=== PATIENT | female | born 1960 | race Caucasian/White ===

== ENCOUNTER → 2020-07-16 | Day surgery (SDC) | payer MEDICARE, OTHER ==
[2020-07-11 10:06] LABS: ANION GAP 18.2 mmol/L (8-16); BLOOD UREA NITROGEN 10 mg/dL (7-26); BUN/CREATININE RATIO 13 (6-25); CALCIUM 10.1 mg/dL (8.4-10.2); CARBON DIOXIDE 23 mmol/L (22-29); CHLORIDE 106 mmol/L (98-107); CREATININE, SERUM 0.79 mg/dL (0.57-1.11); EST GLOMERULAR FILTRATION RATE > 60 ML/MIN (60-); GLUCOSE 98 mg/dL (74-118); POTASSIUM 4.2 mmol/L (3.5-5.1); SODIUM 143 mmol/L (136-145)
[~2020-07-16] MED LIST: ALENDRONATE SOD35 MG PO; AMLODIPINE BESY10 MG PO; BUPIVACAINE 0.25% 30ML SDV INJ ONE; DEXAMETHASONE SOD PHOS INJ 4 MG/ML VIAL ONE; EFFEXOR XR 3737.5 MG PO; FENTANYL CITRATE/PF 100MCG/2 ML INJ ONE; FOLIC ACID PO; GABAPENTIN400 MG PO; GLYCOPYRROLATE INJ 0.2 MG/ML VIAL ONE; HYDROMORPHONE 1MG/1ML INJ ONE; IMITREX20 MG PO; IMURAN50 MG PO; KETOROLAC TROMETHAMINE 30 MG/ML VIAL ONE; LEVOTHYROXINE25 MCG PO; LIDOCAINE HCL 2% LOCAL INJ 5 ML SDV VIAL INJ ONE; LIPITOR10 MG PO; LISINOPRIL10 MG PO; LORATADINE-D 21 EACH PO; METFORMIN HCL500 M2 PO; MIDAZOLAM HCL 2 MG/2 ML VIAL ONE; MIRTAZAPINE15 MG PO; NEOSTIGMINE 1 MG/ML 10ML VIAL ONE; ONDANSETRON HCL INJ 2MG/ML 2ML 2 MG/ML VIAL ONE; ORENCIA125 MG/1 M SC; PROPOFOL IV EMULSION 10 MG/ML 20 ML VIAL ONE; ROCURONIUM BROMIDE 10 MG/ML 5ML VIAL IV ONE; SEVOFLURANE INHAL SOLN 250 ML PEN BTL ONE; TRAZODONE HCL50 MG PO; VANCOMYCIN 1GM/NS 250 ML 250 ML ONE
[2020-07-16 13:00] VITALS: BP 110/80
--- NOTE | 2020-07-16 16:18 | Operative Report ---
DATE OF PROCEDURE: 07/16/2020 SURGEON: Jacques Sigala MD PREOPERATIVE DIAGNOSIS: Chronic cholecystitis. POSTOPERATIVE DIAGNOSIS: Chronic cholecystitis. PREOPERATIVE INDICATION: Treat disease, prevent biliary related complications. PROCEDURE: Laparoscopic cholecystectomy (CPT 49486). ANESTHESIA: General. FLEET SERVICE CLERK: Fabien Bob, surgical 1st microbiology lab assistant (needed due to complexity of case). FLUIDS: 500 mL crystalloid. ESTIMATED BLOOD LOSS: 70 mL. DRAINS: None. COMPLICATIONS: None. SPECIMENS: Gallbladder. GRAFTS: None. FINDINGS: Extreme gallbladder wall friability and hypervascularity with signs of acute and chronic cholecystitis. PROCEDURE IN DETAIL: The patient was brought to the operating room and was intubated under general endotracheal anesthesia. She was positioned supine with both arms abducted and all pressure points appropriately padded. She was sterilely prepped and draped in the usual fashion. A preprocedure pause was performed identifying the patient, use of perioperative antibiotics, intended procedure, and staff surgeon. Access was gained via a 5 mm left subcostal incision using a Veress needle. The abdomen is insufflated. Three additional trocars placed in standard positions. There were some adhesions to the anterior abdominal wall which were carefully lysed. The gallbladder was composed of adhesions from the omentum as well as duodenum which I carefully lysed in order to be able to retract this gallbladder. The gallbladder was grasped at the fundus and retracted cephalad and to the right of the liver. I then dissected out the cholecystic hepatic triangle and obtained a critical view of dissection. The cystic duct was clipped twice on the stay side, once on the specimen side and divided. The small branches of the cystic artery were electrocoagulated with the L-hook electrocautery. The gallbladder was then carefully excised off the gallbladder fossa. There was abundant amount of fibrotic reaction at the gallbladder fossa with hypervascularity, which made dissection a bit more bloody than normal. We were then able to excise the gallbladder off the fossa and removed through the periumbilical port site with an EndoCatch bag. Hemostasis on the gallbladder fossa was achieved with a combination of electrocautery and a single sheet of Surgicel. Once that was completed, we then closed the large port site with 0 Vicryl suture using a Mckinley Castro technique. We then desufflated the abdomen, removed the trocars. Incision sites were closed with 4-0 Monocryl suture in a subcuticular fashion. Dermabond dressings were applied. A 0.25% bupivacaine was used both at the preperitoneal incision site. The patient tolerated the procedure well. Type of wound was type 2, clean, contaminated. All surgical sponge and instrument counts were correct. MD CLARITZA Tejeda/RL /[id number]
== END | disposition home or self-care (01) ==
LOC: OR 08:27
PROVIDERS: ATTEND Surgery
DX: K81.2 Acute cholecystitis with chronic cholecystitis (principal); I10 Essential (primary) hypertension; E11.9 Type 2 diabetes mellitus without complications; E03.9 Hypothyroidism, unspecified; G89.29 Other chronic pain; M06.9 Rheumatoid arthritis, unspecified; F41.9 Anxiety disorder, unspecified; F32.9 Major depressive disorder, single episode, unspecified; Z88.1 Allergy status to other antibiotic agents; Z88.0 Allergy status to penicillin; Z01.810 Encounter for preprocedural cardiovascular examination; Z01.812 Encounter for preprocedural laboratory examination; Z11.59 Encounter for screening for other viral diseases; Z79.84 Long term (current) use of oral hypoglycemic drugs; Z68.30 Body mass index [BMI] 30.0-30.9, adult; Z86.73 Personal history of transient ischemic attack (TIA), and cerebral infarction without residual deficits
CPT/HCPCS: 36415 ×2; 47562; 80048; 82948; 88304; 93005; J1100; J1170; J1885; J2001; J2250; J2405; J2704; J2710; J3010; J3370; U0002

== ENCOUNTER 2020-07-22 01:07 | Inpatient (IN) | payer MEDICARE, OTHER ==
[~2020-07-22] VITALS: Ht 154.9 cm; Wt 71.7 kg
[~2020-07-22 01:07] MED LIST changes: -BUPIVACAINE 0.25% 30ML SDV INJ ONE; -DEXAMETHASONE SOD PHOS INJ 4 MG/ML VIAL ONE; -FENTANYL CITRATE/PF 100MCG/2 ML INJ ONE; -GLYCOPYRROLATE INJ 0.2 MG/ML VIAL ONE; -HYDROMORPHONE 1MG/1ML INJ ONE; -KETOROLAC TROMETHAMINE 30 MG/ML VIAL ONE; -LIDOCAINE HCL 2% LOCAL INJ 5 ML SDV VIAL INJ ONE; -MIDAZOLAM HCL 2 MG/2 ML VIAL ONE; -NEOSTIGMINE 1 MG/ML 10ML VIAL ONE; -ONDANSETRON HCL INJ 2MG/ML 2ML 2 MG/ML VIAL ONE; -PROPOFOL IV EMULSION 10 MG/ML 20 ML VIAL ONE; -ROCURONIUM BROMIDE 10 MG/ML 5ML VIAL IV ONE; -SEVOFLURANE INHAL SOLN 250 ML PEN BTL ONE; -VANCOMYCIN 1GM/NS 250 ML 250 ML ONE
[2020-07-22] MEDS ORDERED: CIPROFLOXACIN 400 MG/D5W 200ML 200 ML IV STA (01:15)
[2020-07-22] MEDS ORDERED: METRONIDAZOLE 500MG/NS 100ML 100 ML IV STA (01:15)
[2020-07-22] MEDS ORDERED: SODIUM CHLORIDE 0.9% 1000ML 1,000 ML IV STA ×2 (01:21→02:34)
[2020-07-22] MEDS ORDERED: SODIUM CHLORIDE 0.9% 1000ML 1,000 ML ONE ×2 (01:23→08:42)
--- OUTSIDE RECORDS SUMMARY | 2020-07-22 01:56 | XMS REPORT | Continuity of Care Document ---
Author Author [facility] Organization [facility] Address 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 Allergies, Adverse Reactions, Alerts Allergy Name Allergy Type Status Severity Reaction(s) Onset Date Inacti ve Date Treating Clinician Comments Source Penicillins DA Active [place] 2019-11-21 00:00:00 [facility] ampicillin DA Active [place] 2019-11-21 00:00:00 [facility] tetracycline DA Active [place] 2019-11-21 00:00:00 [facility] azithromycin DA Active [place] 2019-11-21 00:00:00 [facility] Penicillins DA Active [place] 2019-09-26 00:00:00 [facility] ampicillin DA Active SV 2019-09-26 00:00:00 [facility] tetracycline DA Active [place] 2019-09-26 00:00:00 [facility] azithromycin DA Active MO 2019-07-01 00:00:00 [facility] Penicillins DA Active [place] 2019-06-30 00:00:00 [facility] ampicillin DA Active SV 2019-06-30 00:00:00 [facility] tetracycline DA Active [place] 2019-06-30 00:00:00 [facility] PCN DA Active [place] 2019-06-30 00:00:00 [facility] Medications This patient has no known medications. Procedures This patient has no known procedures. Results Test Description Test Time Test Comments Results Result Comments Source DRUGS OF ABUSE SCREEN UR 2019-12-03 11:11:00 Test Item URN COCAINE (test code = COCAURN) NEGATIVE NEGATIVE Cocaine cut-off concentration: 300 ng/mL URN CANNABINOIDS (test code = CANNABURN) NEGATIVE NEGATIVE Cannabinoids cut- off concentration: 50 ng/mL URN AMPHETAMINE (test code = AMPHETURN) NEGATIVE NEGATIVE Amphetamine cut-off concentration: 1000 ng/mL URN BARBITURATE (test code = BARBITURN) NEGATIVE NEGATIVE Barbiturate cut-off concentration: 200 ng/mL URN BENZODIAZEPINE (test code = BENZOURN) NEGATIVE NEGATIVE Benzodiazepine cut-off concentration: 200 ng/mL URN OPIATES (test code = OPIATURN) POSITIVE NEGATIVE A UNCONFIRMED INITIAL SCREENING ONLY; SUGGEST ADDITIONALCONFIRMATORY TESTING.Opiates cut-off concentration: 200 ng/mL URN PHENCYCLIDINE (PCP) (test code = PHENCURN) NEGATIVE NEGATIV E Phencyclidine(PCP) cut-off concentration: 25 ng/ml URN METHADONE (test code = METHAURN) NEGATIVE NEGATIVE Methadone cut-off concentration: 300 ng/mL Specimen comments: Clean CatchBASIC METABOLIC [id number] 11:07:00* Test Item Value Reference Range Interpretation Comments SODIUM (test code = NA) 142 mmol/l 134.0-147.0 N POTASSIUM (test code = K) 3.4 mmol/L 3.6-5.2 L CHLORIDE (test code = CL) 106 mmol/l 98.0-107.0 N CARBON DIOXIDE (test code = CO2) 25.6 mmol/l 21.0-33.0 N ANION GAP (test code = GAP) 13.8 0-20 N GLUCOSE (test code = GLU) 114 mg/dl 70.0-110.0 H BLOOD UREA NITROGEN (test code = BUN) 10 mg/dl 7.0-18.0 N CREATININE (test code = CREAT) 0.70 mg/dL 0.60-1.30 N GFR NON BLACK (test code = GFRNONBLACK) 90 mL/min 80-90 N GFR BLACK (test code = GFRBLACK) 109 mL/min 97-109 N CALCIUM (test code = CA) 9.1 mg/dl 8.0-10.5 N HEPATIC FUNCTION PANEL [id number] 11:07:00* Test Item Value Reference Range Interpretation Comments TOTAL PROTEIN (test code = PROT) 7.2 gm/dL 6.4-8.2 N ALBUMIN (test code = ALB) 3.2 gm/dl 3.2-4.7 N BILIRUBIN TOTAL (test code = BILT) 0.3 mg/dl 0.0-1.0 N BILIRUBIN DIRECT (test code = BILD) 0.1 mg/dl 0.0-0.3 N SGOT/AST (test code = AST) 11 Units/L 15.0-37.0 L SGPT/ALT (test code = ALT) 13 Units/L 12.0-78.0 N ALKALINE PHOSPHATASE TOTAL (test code = ALKP) 88 Units/L 50.0-136 .0 N B-TYPE NATRIURETIC [id number] 11:07:00* Test Item Value Reference Range Interpretation Comments B-TYPE NATRIURETIC PEPTIDE (test code = BNP) 43.8 PG/ML 5-100 N [id number] 11:07:00* Test Item Value Reference Range Interpretation Comments TROPONIN-I (test code = TROPI) <0.02 NG/ML 0.00-0.06 N REFERENCE RANGE TROPONIN I HEALTHY INDIVIDUALS: <0.06 ng/mL R/O ISCHEMIA: 0.07 - 0.60 ng/mL CUT-OFF RANGE FOR AMI: 0.60 - 1.5 ng/mL URINALYSIS [id number] 11:05:00* Test Item Value Reference Range Interpretation Comments UA COLOR (test code = COLU) YELLOW UA APPEARANCE (test code = APPU) SLHZY UA GLUCOSE DIPSTICK (test code = DGLUU) NORMAL mg/dl NORMAL UA BILIRUBIN DIPSTICK (test code = BILU) NEGATIVE mg/dL NEGATIVE UA KETONE DIPSTICK (test code = KETU) NEGATIVE mg/dl NEGATIVE UA SPECIFIC GRAVITY (test code = SGU) 1.020 1.000-1.030 UA BLOOD DIPSTICK (test code = SOLE) 50 Fredrick/micL Fredrick/micL NEGATIVE A UA PH DIPSTICK (test code = RAUL) 5.0 5.0-9.0 UA PROTEIN DIPSTICK (test code = PROU) 15 mg/dl mg/dl NEGATIVE A UA UROBILINIOGEN DIPSTICK (test code = URO) 4.0 mg/dl mg/dl NORMAL A UA NITRITE DIPSTICK (test code = TIMOTHY) NEGATIVE NEGATIVE UA LEUKOCYTE ESTERASE DIPSTICK (test code = LEUU) NEGATIVE Jhoana/micL NEGATIVE UA WBC (test code = WBCU) 0-3 WBC/HPF NONE UA RBC (test code = RBCU) 5-10 RBC/HPF 0-3 A UA EPITHELIAL CELLS (test code = EPIU) 0-3 EPI/HPF 0-3 UA BACTERIA (test code = BACU) FEW NONE Specimen comments: Clean CatchURINALYSIS [id number] 11:02:00* Test Item Value Reference Range Interpretation Comments UA COLOR (test code = COLU) UA APPEARANCE (test code = APPU) UA GLUCOSE DIPSTICK (test code = DGLUU) NORMAL mg/dl NORMAL UA BILIRUBIN DIPSTICK (test code = BILU) NEGATIVE mg/dL NEGATIVE UA KETONE DIPSTICK (test code = KETU) NEGATIVE mg/dl NEGATIVE UA SPECIFIC GRAVITY (test code = SGU) 1.020 1.000-1.030 UA BLOOD DIPSTICK (test code = SOLE) 50 Fredrick/micL Fredrick/micL NEGATIVE A UA PH DIPSTICK (test code = RAUL) 5.0 5.0-9.0 UA PROTEIN DIPSTICK (test code = PROU) 15 mg/dl mg/dl NEGATIVE A UA UROBILINIOGEN DIPSTICK (test code = URO) 4.0 mg/dl mg/dl NORMAL A UA NITRITE DIPSTICK (test code = TIMOTHY) NEGATIVE NEGATIVE UA LEUKOCYTE ESTERASE DIPSTICK (test code = LEUU) NEGATIVE Jhoana/micL NEGATIVE UA WBC (test code = WBCU) WBC/HPF NONE UA RBC (test code = RBCU) RBC/HPF 0-3 UA EPITHELIAL CELLS (test code = EPIU) EPI/HPF 0-3 UA BACTERIA (test code = BACU) NONE Specimen comments: Clean CatchBASIC METABOLIC [id number] 10:53:00* Test Item Value Reference Range Interpretation Comments SODIUM (test code = NA) 142 mmol/l 134.0-147.0 N POTASSIUM (test code = K) 3.4 mmol/L 3.6-5.2 L CHLORIDE (test code = CL) 106 mmol/l 98.0-107.0 N CARBON DIOXIDE (test code = CO2) 25.6 mmol/l 21.0-33.0 N ANION GAP (test code = GAP) 13.8 0-20 N GLUCOSE (test code = GLU) 114 mg/dl 70.0-110.0 H BLOOD UREA NITROGEN (test code = BUN) 10 mg/dl 7.0-18.0 N CREATININE (test code = CREAT) 0.70 mg/dL 0.60-1.30 N GFR NON BLACK (test code = GFRNONBLACK) 90 mL/min 80-90 N GFR BLACK (test code = GFRBLACK) 109 mL/min 97-109 N CALCIUM (test code = CA) 9.1 mg/dl 8.0-10.5 N HEPATIC FUNCTION PANEL [id number] 10:53:00* Test Item Value Reference Range Interpretation Comments TOTAL PROTEIN (test code = PROT) 7.2 gm/dL 6.4-8.2 N ALBUMIN (test code = ALB) 3.2 gm/dl 3.2-4.7 N BILIRUBIN TOTAL (test code = BILT) 0.3 mg/dl 0.0-1.0 N BILIRUBIN DIRECT (test code = BILD) 0.1 mg/dl 0.0-0.3 N SGOT/AST (test code = AST) 11 Units/L 15.0-37.0 L SGPT/ALT (test code = ALT) 13 Units/L 12.0-78.0 N ALKALINE PHOSPHATASE TOTAL (test code = ALKP) 88 Units/L 50.0-136 .0 N B-TYPE NATRIURETIC [id number] 10:53:00* Test Item Value Reference Range Interpretation Comments B-TYPE NATRIURETIC PEPTIDE (test code = BNP) PG/ML 5-100 [id number] 10:53:00* Test Item Value Reference Range Interpretation Comments TROPONIN-I (test code = TROPI) <0.02 NG/ML 0.00-0.06 N REFERENCE RANGE TROPONIN I HEALTHY INDIVIDUALS: <0.06 ng/mL R/O ISCHEMIA: 0.07 - 0.60 ng/mL CUT-OFF RANGE FOR AMI: 0.60 - 1.5 ng/mL BASIC METABOLIC [id number] 10:41:00* Test Item Value Reference Range Interpretation Comments SODIUM (test code = NA) 142 mmol/l 134.0-147.0 N POTASSIUM (test code = K) 3.4 mmol/L 3.6-5.2 L CHLORIDE (test code = CL) 106 mmol/l 98.0-107.0 N CARBON DIOXIDE (test code = CO2) 25.6 mmol/l 21.0-33.0 N ANION GAP (test code = GAP) 13.8 0-20 N GLUCOSE (test code = GLU) mg/dl 70.0-110.0 BLOOD UREA NITROGEN (test code = BUN) mg/dl 7.0-18.0 CREATININE (test code = CREAT) mg/dL 0.60-1.30 GFR NON BLACK (test code = GFRNONBLACK) mL/min 80-90 GFR BLACK (test code = GFRBLACK) mL/min 97-109 CALCIUM (test code = CA) mg/dl 8.0-10.5 HEPATIC FUNCTION PANEL [id number] 10:41:00* Test Item Value Reference Range Interpretation Comments TOTAL PROTEIN (test code = PROT) gm/dL 6.4-8.2 ALBUMIN (test code = ALB) gm/dl 3.2-4.7 BILIRUBIN TOTAL (test code = BILT) mg/dl 0.0-1.0 BILIRUBIN DIRECT (test code = BILD) mg/dl 0.0-0.3 SGOT/AST (test code = AST) Units/L 15.0-37.0 SGPT/ALT (test code = ALT) Units/L 12.0-78.0 ALKALINE PHOSPHATASE TOTAL (test code = ALKP) Units/L 50.0-136 .0 B-TYPE NATRIURETIC [id number] 10:41:00* Test Item Value Reference Range Interpretation Comments B-TYPE NATRIURETIC PEPTIDE (test code = BNP) PG/ML 5-100 [id number] 10:41:00* Test Item Value Reference Range Interpretation Comments TROPONIN-I (test code = TROPI) NG/ML 0.00-0.06 PROTHROMBIN [id number] 10:33:00* Test Item Value Reference Range Interpretation Comments PROTHROMBIN TIME PATIENT (test code = PTP) 11.9 SECONDS 9.9-12.8 N INTERNATIONAL NORMAL RATIO (test code = INR) 1.0 0.89-1.14 N THE INR IS TO BE USED ONLY FOR MONITORING ORAL ANTICOAGULANTTHERAPY. THE FOLLOWING ARE SUGGESTED RANGES FROM THEAMERICAN COLLEGE OF CHEST PHYSICIANS:INDICATION INR VALUEPROPHYLAXIS OF VENOUS THROMBOSIS (ORTHOPEDIC SURGERY) 2.0 - 3.0PROPHYLAXIS OF VENOUS THROMBOSIS (OTHER THAN HIGH-RISK SURGERY) 2.0 - 3.0TREATMENT OF DEEP VEIN THROMBOSIS OR PULMONARY EMBOLISM 2.0 - 3.0PREVENTION OF SYSTEMIC EMBOLISM TISSUE HEART VALVES 2.0 - 3.0 ACUTE MYOCARDIAL INFARCTION (TO PREVENT SYSTEMIC EMBOLISM) 2.0 - 3.0 ACUTE MYOCARDIAL INFARCTION (TO PREVENT RECURRENT INFARCT) 2.5 - 3.0 VALVULAR HEART DISEASE 2.0 - 3.0 ATRIAL FIBRILATION 2.0 - 3.0BILEAFLET MECHANICAL VALVE IN AORTIC POSITION 2.0 - 3.0MECHANICAL PROSTHETIC VALVES (HIGH RISK) 2.5 - 3.5PRESENCE OF LUPUS ANTICOAGULANT OR ANTIPHOSPHOLIPID ANTIBODIES 2.5 - 3.5 Is patient on anticoagulants? NTHROMBOPLASTIN TIME [id number] 10:33:00* Test Item Value Reference Range Interpretation Comments THROMBOPLASTIN TIME PARTIAL (test code = PTT) 27.10 SECONDS 25.86-3 6.07 N [facility] Therapeutic Range - APTT of 55.8-85.4 secondscorrelates with plasma heparin concentration of 0.2-0.4 u/mL New range effective - 01/11/2017 Is patient on anticoagulants? NCBC W/AUTO [id number] 10:25:00* Test Item Value Reference Range Interpretation Comments WHITE BLOOD CELL (test code = WBC) 6.0 K/mm3 4.5-11.0 N RED BLOOD CELL (test code = RBC) 3.61 M/mm3 3.80-5.20 L HEMOGLOBIN (test code = HGB) 11.3 gm/dL 12.0-16.0 L HEMATOCRIT (test code = HCT) 33.8 % 36.0-48.0 L MEAN CELL VOLUME (test code = MCV) 93.6 UM3 82.0-99.0 N MEAN CELL HGB (test code = MCH) 31.3 UUG 25.5-32.5 N MEAN CELL HGB CONCETRATION (test code = MCHC) 33.4 gm/dL 29.0-35. 5 N RED CELL DISTRIBUTION WIDTH (test code = RDW) 17.9 % 11.5-15. 0 H RED CELL DISTRIBUTION WIDTH SD (test code = RDW-SD) 62.1 fL 34 .8-50.2 H PLATELET COUNT (test code = PLT) 298 K/mm3 150-400 N MEAN PLATELET VOLUME (test code = MPV) 9.8 fl 7.4-10.4 N NEUTROPHIL % (test code = NT%) 70.0 % 49.0-76.0 N IMMATURE GRANULOCYTE % (test code = IG%) 0.2 % 0.0-0.4 N LYMPHOCYTE % (test code = LY%) 22.6 % 23.0-38.0 L MONOCYTE % (test code = MO%) 6.0 % 1.0-10.0 N EOSINOPHIL % (test code = EO%) 0.7 % 1.0-5.0 L BASOPHIL % (test code = BA%) 0.5 % 0.0-1.0 N NEUTROPHIL # (test code = NT#) 4.2 K/mm3 2.4-6.3 N IMMATURE GRANULOCYTE # (test code = IG#) 0.01 x10 3/uL 0.00-0.07 N LYMPHOCYTE # (test code = LY#) 1.4 K/mm3 1.2-4.0 N MONOCYTE # (test code = MO#) 0.4 K/mm3 0.0-0.6 N EOSINOPHIL # (test code = EO#) 0.0 K/MM3 0.0-0.7 N BASOPHIL # (test code = BA#) 0.0 K/mm3 0.0-0.2 N - XR CHEST 1 [id number] 09:52:00 FAX: Macie Cota [phone] Bernard: St: PRE FAX: Maia Gant MD [phone] Name: PADMINI MACKEY [facility] : 1960 Age/S: 59/F [address] Unit #: [id number] Loc: .[place], [place]: [place] [id number] Acct: [id number] Dis Date: Status: PRE ER PHONE #: [phone] Exam Date: 12/03/2019 0951 FAX #: [phone] Reason: SOB EXAMS: CPT CODE: [id number] XR CHEST 1 V 52617 LOCATION: T18 EXAM: CHEST 1 VIEW INDICATION: SOB COMPARISON: Chest x-ray November 21, 2019 TECHNIQUE: AP chest radiograph. FINDINGS: Lungs are clear bilaterally without effusion. Heart is normal in size. Bones and peripheral soft tissues are unchanged. IMPRESSION: Lungs are clear. No acute abnormality. at 9714 Reported and signed by: Mahamed Tsang M.D. CC: Macie Landaverde MD; Maia Gant MD Technologist: JULIA FORTUNE [facility] Date/Time/By: 12/03/2019 (0952) : By: [email or web address] PAGE 1 Signed Report FAX: Macie Cota [phone] Bernard: St: PRE FAX: Maia Gant MD Name: NARENDRAPADMINI Conchis [facility] : 1960 Age/S: 59/F [address] Unit #: [id number] Loc: [place], [place]: [place] [id number] Acct: [id number] Dis Date: Status: PRE ER PHONE #: [phone] Exam Date: 12/03/2019 0951 FAX #: [phone] Reason: SOB EXAMS: CPT CODE: [id number] XR CHEST 1 V 47645 <Continued> Orig Print D/T: S: 12/03/2019 (4797) PAGE 2 Signed Report PROCALCITONIN (PCT)2019-11-21 21:09:00* Test Item Value Reference Range Interpretation Comments PROCALCITONIN (PCT) (test code = PROCAL) 0.05 ng/mL 0.00-0.05 N PROCALCITONIN (PCT) NORMAL RANGE (ADULT): <0.05 NG/ML. * a concentration <0.5 ng/mL represents a low risk of severe sepsis and/or septic shock.* a concentration >2 ng/mL represents a high risk of severe sepsis and/or septic shock.Nevertheless, concentrations <0.5 ng/mL do not exclude aninfection, on account of localized infections (withoutsystemic signs) which can be associated with such lowconcentrations, or a systemic infection in its initialstages (< 6 hours). Furthermore, increased procalcitonincan occur without infection. PCT concentrations between 0.5and 2.0 ng/mL should be interpreted taking into account thepatient's history. It is recommended to retest PCT within6-24 hours if any concentrations <2 ng/mL are obtained. C REACTIVE [id number] 20:53:00* Test Item Value Reference Range Interpretation Comments C REACTIVE PROTEIN (test code = CRP) 15.3 MG/L 0.0-2.9 H - CT ABD PELVIS W/[id number] 18:23:00 Name: PADMINI MACKEY Conchis [facility] : 1960 Age/S: 59 / F [address] [place] [address] Unit #: [id number] Loc: [place] [address] Phys: Irma Keys NP Acct: [id number] Dis Date: Status: REG ER PHONE #: [phone] Exam Date: 11/21/2019 8206 FAX #: [phone] Reason: R upper abd pain EXAMS: CPT CODE: [id number] CT ABD PELVIS W/CONT 06990 Clinical Indication: R upper abd pain Comparison: CT abdomen pelvis 06/30/2019 TECHNIQUE: Helical imaging was performed after injection of IV contrast, from the lung base through the symphysis with multiplanar reformations obtained. IV CONTRAST: 100 mL of Isovue-300 GI CONTRAST: Oral contrast was administered. DLP: 335 mGy-cm FINDINGS: CT ABDOMEN AND PELVIS WITH CONTRAST: LUNG BASE: Infiltrates are seen in the bilateral lower lungs, moderately worsened since the last exam. LIVER: The liver is enlarged measuring 20.8 cm in cranial to caudal dimension. The liver parenchyma is normal in appearance without masses or intrahepatic biliary ductal dilatation. The portal vein is normal in caliber. BILIARY TREE: The common bile duct is normal in caliber without evidence of filling defects. GALLBLADDER: The gallbladder is unremarkable, there is no evidence of cholelithiasis or cholecystitis. PANCREAS: The pancreas is unremarkable. The pancreatic duct is normal in caliber. SPLEEN: The spleen is normal in size and there are no parenchymal abnormalities. ADRENALS: The right adrenal gland is unremarkable. The left adrenal gland is not well visualized due to the large cyst. KIDNEYS: The kidneys demonstrates normal contrast enhancement. A 8.7 x 6.2 cm cyst with calcification is seen superior to the right kidney. There is no evidence of renal or ureteral calculi. There is no evidence of hydronephrosis. BOWEL: The visualized portion of the esophagus is unremarkable. The stomach is unremarkable. The small bowel is normal in caliber and there is no evidence of masses or obstruction. 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 APPENDIX: The appendix is nonvisualized. PELVIS: There are no pelvic masses. The urinary bladder is unremarkable. The uterus is not visualized. PERITONEUM: There is no evidence for free intraperitoneal fluid or air. SOFT TISSUES: The soft tissues are unremarkable. There is no evidence of masses or hernias. LYMPH NODES: There is no evidence of mesenteric, retroperitoneal, or inguinal lymphadenopathy. VASCULATURE: The abdominal aorta is normal in caliber. The branches of the abdominal aorta are widely patent. MUSCULOSKELETAL: The visualized bony skeleton is unremarkable. IMPRESSION: 1. Multifocal pneumonia, moderately worsened since the last exam. 2. A 8.7 x 6.2 cm cyst with calcification superior to the right kidney and adjacent to the left adrenal gland, stable. 3. Hepatomegaly. 4. Hysterectomy. SL: LANVU-H at 1823 Reported and signed by: Jaret Simmons M.D. CC: Macie Landaverde MD; Irma Keys NP Technologist:Pratibha Stovall, RT(R) CTDI: DLP: Trnscb Date/Time: 11/21/2019 (1822) t.SDR.LNV Orig Print D/T: S: 11/21/2019 (1825) PAGE 2 Signed Report - US ABDOMEN [id number] 16:57:00 Name: PADMINI MACKEY [facility] : 1960 Age/S: 59 / F [address] [place] [address] Blvd Unit #: [id number] Loc: [place] [address] Phys: Irma Keys NP Acct: [id number] Dis Date: Status: REG ER PHONE #: [phone] Exam Date: 11/21/2019 1649 FAX #: [phone] Reason: Abdominal Pain EXAMS: CPT CODE: [id number] ABDOMEN LTD 06706 PROCEDURE: RIGHT UPPER QUADRANT ULTRASOUND INDICATION: Abdominal pain, nausea and vomiting COMPARISON: Abdomen pelvis CT without contrast 06/30/2019 TECHNIQUE: Sonographic evaluation of the right upper quadrant was performed with supplemental color and pulsed Doppler. FINDINGS: LIVER: The liver is normal in contour and morphology with normal parenchymal echogenicity. GALLBLADDER: Minimal gallbladder sludge. No gallbladder wall thickening, pericholecystic fluid or shadowing stones.. BILE DUCTS: No biliary dilatation. The common duct measures 8 mm. PANCREAS: The visualized pancreas appears normal. RIGHT KIDNEY: The right kidney measures 10 cm in length. Normal renal contour and morphology with normal echogenicity. There is no hydronephrosis. Additional comments: Complex cystic lesion in the right upper quadrant of the abdomen that measures 7.1 x 5.5 x 6.4 cm. This is stable in size from the prior CT that also showed some mural calcification. Favor that this lesion arises from the upper pole of the right kidney, adrenal origin not excluded IMPRESSION: 1. Gallbladder sludge. 2. Common bile duct upper limits of normal in size. No evidence of choledocholithiasis. 3. Stable size of a complex cystic lesion right upper quadrant, favor renal origin SL: CL [id number] Electronically Signed by Vipin Aguilera on at 1657 Reported and signed by: Pili Kendrick PAGE 1 Signed Report (CONTINUE D) Name: PADMINI MACKEY [facility] : 1960 Age/S: 59 / F [address] [place] [address] Unit #: [id number] Loc: [place] [address] Phys: Jeffy Keys WEB DESIGNER DEVELOPER Acct: [id number] Dis Date: Status: REG ER PHONE #: [phone] Exam Date: 11/21/2019 1649 FAX #: [phone] Reason: Abdominal Pain EXAMS: CPT CODE: [id number] ABDOMEN LTD 92165 <Continued> CC: Irma Keys NP Technologist: Deirdre Hathaway RDMS (Jeffy) Trnscb Date/Time: 11/21/2019 (165) t.MISTIG Orig Print D/T: S: 11/21/2019 (1700) Probe: PAGE 2 Signed Report HEPATIC FUNCTION [id number] 14:31:00* Test Item Value Reference Range Interpretation Comments TOTAL PROTEIN (test code = PROT) 8.1 g/dL 6.4-8.2 N ALBUMIN (test code = ALB) 3.50 g/dL 3.4-5.0 N BILIRUBIN TOTAL (test code = BILT) 0.5 MG/DL <1.5 N BILIRUBIN DIRECT (test code = BILD) 0.10 MG/DL 0.0-0.30 N BILIRUBIN INDIRECT (test code = BILIND) 0.40 MG/DL SGOT/AST (test code = AST) 13 IUnit/L 15-37 L SGPT/ALT (test code = ALT) 14 IUnit/L 15-65 L ALKALINE PHOSPHATASE TOTAL (test code = ALKP) 105 IUnit/L 20-125 N [id number] 14:31:00* Test Item Value Reference Range Interpretation Comments LIPASE (test code = LIP) 115 IUnit/L 73-393 N - XR CHEST 2 [id number] 14:21:00 FAX: Irma Keys NP [phone] Bernard: St: PRE Name: PADMINI HUERTA [facility] : [birth year] Age/S: 59/F [address] [place] [address] Unit #: [id number] Loc: [place] [address] Phys: Irma Keys NP Acct: [id number] Dis Date: Status: PRE ER PHONE #: [phone] Exam Date: 11/21/2019 1417 FAX #: [phone] Reason: RUQ abd pain EXAMS: CPT CODE: [id number] XR CHEST 2 V 44266 Two-view chest: HIST ORY: Right upper quadrant abdominal pain. FINDINGS: Mild interstit ial prominence in each lung base is stable from 08/17/2019 likely mild fibr otic change. No new pulmonary infiltrate or pleural fluid collection is f ound. The heart and mediastinal contours are stable. Note is made of lakshmi gino kyphosis. IMPRESSION: Stable exam without definite acute fin ding SL: [id number] Electro nically Signed by Vipin Aguilera on 11/21/2019 at 1421 Reported and signed by: Chase Aguilera M.D. CC: Irma martinez NP Technologist: Marivel Mata(Marivel) Trnscrd Date/Time/By: 11/21/2019 (2511) : Aniket y: MeganG Orig Print D/T: S: 11/21/2019 (7897) PAGE 1 Signed Report CBC W/AUTO [id number] 14:10:00* Test Item Value Reference Range Interpretation Comments WHITE BLOOD CELL (test code = WBC) 10.01 x10 3/uL 4.5-11.0 N RED BLOOD CELL (test code = RBC) 3.66 x10 6/uL 3.54-5.02 N HEMOGLOBIN (test code = HGB) 11.6 g/dL 11.0-15.0 N HEMATOCRIT (test code = HCT) 34.6 % 33.0-45.0 N MEAN CELL VOLUME (test code = MCV) 94.5 fL 81.0-99.0 N MEAN CELL HGB (test code = MCH) 31.7 pg 27.0-33.0 N MEAN CELL HGB CONCETRATION (test code = MCHC) 33.5 g/dL 33.0-37. 0 N RED CELL DISTRIBUTION WIDTH CV (test code = RDW) 17.4 % 11.5- 14.5 H RED CELL DISTRIBUTION WIDTH SD (test code = RDW-SD) 60.5 fL 37 .0-54.0 H PLATELET COUNT (test code = PLT) 338 x10 3/uL 150-400 N IMMATURE PLATELET FRACTION (test code = IPF) 1.6 % 0.9-11.2 N MEAN PLATELET VOLUME (test code = MPV) 9.9 fL 7.0-9.0 H NEUTROPHIL % (test code = NT%) 64.8 % 56.0-77.0 N IMMATURE GRANULOCYTE % (test code = IG%) 0.4 % 0.0-2.0 N LYMPHOCYTE % (test code = LY%) 24.7 % 14.0-32.0 N MONOCYTE % (test code = MO%) 8.3 % 4.8-9.0 N EOSINOPHIL % (test code = EO%) 1.6 % 0.3-3.7 N BASOPHIL % (test code = BA%) 0.2 % 0.0-2.0 N NUCLEATED RBC % (test code = NRBC%) 0.0 % 0-0 N NEUTROPHIL # (test code = NT#) 6.49 x10 3/uL 2.0-7.6 N IMMATURE GRANULOCYTE # (test code = IG#) 0.04 x10 3/uL 0.00-0.03 H LYMPHOCYTE # (test code = LY#) 2.47 x10 3/uL 1.0-3.8 N MONOCYTE # (test code = MO#) 0.83 x10 3/uL 0.1-0.8 H EOSINOPHIL # (test code = EO#) 0.16 x10 3/uL 0.0-0.2 N BASOPHIL # (test code = BA#) 0.02 x10 3/uL 0.0-0.2 N NUCLEATED RBC # (test code = NRBC#) 0.00 x10 3/uL 0.0-0.1 N MANUAL DIFF REQUIRED (test code = MDIFF) NO UA RFLX MICR CULT IF [id number] 14:09:00* Test Item Value Reference Range Interpretation Comments UA COLOR (test code = COLU) YELLOW YEL/STRAW UA APPEARANCE (test code = APPU) CLEAR CLEAR UA GLUCOSE DIPSTICK (test code = DGLUU) NEGATIVE NEGATIVE UA BILIRUBIN DIPSTICK (test code = BILU) NEGATIVE NEGATIVE UA KETONE DIPSTICK (test code = KETU) NEGATIVE NEGATIVE UA SPECIFIC GRAVITY (test code = SGU) 1.009 1.005-1.030 N UA BLOOD DIPSTICK (test code = SOLE) 1+ NEGATIVE A UA PH DIPSTICK (test code = RAUL) 6.0 5.0-7.0 N UA PROTEIN DIPSTICK (test code = PROU) NEGATIVE NEGATIVE UA UROBILINIOGEN DIPSTICK (test code = URO) 0.2 mg/dL 0.2-1.0 UA NITRITE DIPSTICK (test code = TIMOTHY) NEGATIVE NEGATIVE UA LEUKOCYTE ESTERASE DIPSTICK (test code = LEUU) NEGATIVE NEGA TIVE UA WBC (test code = WBCU) 0-3 WBC/HPF 0-3 UA RBC (test code = RBCU) 0-3 RBC/HPF 0-3 UA WBC NO REFLEX (test code = WBCUCL) 0-3 WBC/HPF 0-3 UA BACTERIA (test code = BACU) TRACE /HPF NONE SEEN UA SQUAMOUS CELLS (test code = SQU) 0-5 /HPF NONE SEEN UA MUCUS (test code = MUCU) TRACE /LPF NONE SEEN Indication for culture: Suprapubic Pain Flank PainSpecimen Description: CLEAN CATCHTROPONIN-I [id number] 14:08:00* Test Item Value Reference Range Interpretation Comments TROPONIN-I RAPID (test code = TROPIRAP) 0.00 ng/mL 0.00-0.08 N Performed by certified playback operator at [facility] Negative: <= 0.08 Positive: >= 0.09An elevated troponin value alone is not sufficient todiagnose a myocardial infarction. Rather, the patient sclinical presentation (history, physical exam) and ECGshould be used in conjunction with troponin in thediagnostic evaluation of suspected myocardial infarction. Aserial sampling protocol is recommended to facilitate the identification of temporal changes in troponin levels characteristic of [place]. LACTIC ACID [id number] 14:01:00* Test Item Value Reference Range Interpretation Comments LACTIC ACID POC (test code = LACTP) 0.7 MMOL/L 0.90-1.70 L Performed by certified playback operator at [facility] CHEMISTRY 8 [id number] 14:01:00* Test Item Value Reference Range Interpretation Comments ISTAT-SODIUM (test code = NAP) MMOL/L 134-147 ISTAT-POTASSIUM (test code = KP) MMOL/L 3.4-5.0 ISTAT-CHLORIDE (test code = CLP) MMOL/L 100-108 ISTAT CARBON DIOXIDE (test code = ISTAT-CO2) mmol/L 21-33 N ISTAT CALCIUM IONIZED (test code = ISTAT-CAMILLE) MG/DL 1.12-1.3 2 ISTAT-GLUCOSE (test code = GLUP) MG/DL 70-110 H ISTAT-BUN (test code = BUNP) MG/DL 7-18 N BEDSIDE CREATININE (test code = CREATBED) MG/DL 0.6-1.3 N GLOMERULAR FILTRATION RATE POC (test code = GFRBED) 78 ML/MIN CHEMISTRY 8 [id number] 14:01:00* Test Item Value Reference Range Interpretation Comments ISTAT-SODIUM (test code = NAP) 137 MMOL/L 134-147 N ISTAT-POTASSIUM (test code = KP) 4.2 MMOL/L 3.4-5.0 N ISTAT-CHLORIDE (test code = CLP) 103 MMOL/L 100-108 N Performed by certified playback operator at [facility] ISTAT CARBON DIOXIDE (test code = ISTAT-CO2) 25.0 mmol/L 21-33 N ISTAT CALCIUM IONIZED (test code = ISTAT-CAMILLE) 1.22 MG/DL 1.12-1.3 2 N ISTAT-GLUCOSE (test code = GLUP) 112 MG/DL 70-110 H ISTAT-BUN (test code = BUNP) 11 MG/DL 7-18 N BEDSIDE CREATININE (test code = CREATBED) 0.8 MG/DL 0.6-1.3 N GLOMERULAR FILTRATION RATE POC (test code = GFRBED) 78 ML/MIN [id number] 12:13:00 RUN DATE: 11/07/19 [facility] - Lab PAGE 1 RUN TIME: 1213 Specimen Inqui ry RUN USER: INTERFACE PATIENT: PADMINI MACKEY ACCT #: [id number] LOC: [place] #: [id number] AGE/SX: 59/F ROOM: RE11/04/19REG DR: Scar Stephen MD : 56 BED: DIS: STATUS: [facility] TLOC: SPEC #: [id number] RECD: 11/04/19 STATUS: FELISA ARGUETA #: [id number] SHAUN: 11/04/19- SUBM DR: Scar Stephen MD ENTERED: 11/04/19 SP TYPE: BRONCH WA OTHR DR: No Irene benson or Family Physician Self ReferredORDERED: CYTOSPIN 31641, GM LEVEL 4, REQUEST COPIES TO: No Primary or Family Physician Self Referred Scar Stephen MD [address] [place] [address] PROCEDURES: CYTOSPIN 49161 (11/07/19) GM LEVEL 4 (11/07/19) REQUEST (11/04/19) TISSUES: BRONCHUS, NOS - BRONCHIAL WASH FINAL DIAGNOSIS BRONCHIAL WASHINGS, CY TOSPIN AND CELL BLOCK PREPARATIONS: NEGATIVE OF MALIGNANT CELLS. FEW SURESH IGN BRONCHIAL EPITHELIAL CELLS IN A BACKGROUND OF MIXED INFLAMMATORY EXUD ATE AND MUCOUS. CPT CODE: [id number], [id number] MACROSCOPIC Clinica l history: Pneumonia Specimen designated "bronchial washings" consists of 25 ml of viscous transparent fluidfrom which two cytospins and a cell block preparatio n are made. MICROSCOPIC SEE DIAGNOSIS Signed SIGNATURE ON FILE Sharon Churchill 11/07/19 1213 END OF REPORT COMPREHENSIVE METABOLIC [id number] 06:36:00* Test Item Value Reference Range Interpretation Comments SODIUM (test code = NA) 139 mmol/l 134.0-147.0 N POTASSIUM (test code = K) 4.1 mmol/L 3.6-5.2 N CHLORIDE (test code = CL) 101 mmol/l 98.0-107.0 N CARBON DIOXIDE (test code = CO2) 29.7 mmol/l 21.0-33.0 N ANION GAP (test code = GAP) 12.4 0-20 N GLUCOSE (test code = GLU) 99 mg/dl 70.0-110.0 N BLOOD UREA NITROGEN (test code = BUN) 8 mg/dl 7.0-18.0 N CREATININE (test code = CREAT) 0.78 mg/dL 0.60-1.30 N GFR NON BLACK (test code = GFRNONBLACK) 80 mL/min 80-90 N GFR BLACK (test code = GFRBLACK) 96 mL/min 97-109 L TOTAL PROTEIN (test code = PROT) 8.0 GM/DL 6.0-8.1 N ALBUMIN (test code = ALB) 3.2 gm/dL 3.2-4.7 N CALCIUM (test code = CA) 9.1 mg/dl 8.0-10.5 N BILIRUBIN TOTAL (test code = BILT) 0.5 mg/dl 0.0-1.0 N SGOT/AST (test code = AST) 20 Units/L 15.0-37.0 N SGPT/ALT (test code = ALT) 13 Units/L 12.0-78.0 N ALKALINE PHOSPHATASE TOTAL (test code = ALKP) 126 Units/L 50.0-136 .0 N THROMBOPLASTIN TIME [id number] 06:35:00* Test Item Value Reference Range Interpretation Comments THROMBOPLASTIN TIME PARTIAL (test code = PTT) 32.90 SECONDS 25.86-3 6.07 N [facility] Therapeutic Range - APTT of 55.8-85.4 secondscorrelates with plasma heparin concentration of 0.2-0.4 u/mL New range effective - 01/11/2017 PROTHROMBIN [id number] 06:34:00* Test Item Value Reference Range Interpretation Comments PROTHROMBIN TIME PATIENT (test code = PTP) 12.4 SECONDS 9.9-12.8 N INTERNATIONAL NORMAL RATIO (test code = INR) 1.0 0.89-1.14 N THE INR IS TO BE USED ONLY FOR MONITORING ORAL ANTICOAGULANTTHERAPY. THE FOLLOWING ARE SUGGESTED RANGES FROM THEAMERICAN COLLEGE OF CHEST PHYSICIANS:INDICATION INR VALUEPROPHYLAXIS OF VENOUS THROMBOSIS (ORTHOPEDIC SURGERY) 2.0 - 3.0PROPHYLAXIS OF VENOUS THROMBOSIS (OTHER THAN HIGH-RISK SURGERY) 2.0 - 3.0TREATMENT OF DEEP VEIN THROMBOSIS OR PULMONARY EMBOLISM 2.0 - 3.0PREVENTION OF SYSTEMIC EMBOLISM TISSUE HEART VALVES 2.0 - 3.0 ACUTE MYOCARDIAL INFARCTION (TO PREVENT SYSTEMIC EMBOLISM) 2.0 - 3.0 ACUTE MYOCARDIAL INFARCTION (TO PREVENT RECURRENT INFARCT) 2.5 - 3.0 VALVULAR HEART DISEASE 2.0 - 3.0 ATRIAL FIBRILATION 2.0 - 3.0BILEAFLET MECHANICAL VALVE IN AORTIC POSITION 2.0 - 3.0MECHANICAL PROSTHETIC VALVES (HIGH RISK) 2.5 - 3.5PRESENCE OF LUPUS ANTICOAGULANT OR ANTIPHOSPHOLIPID ANTIBODIES 2.5 - 3.5 COMPREHENSIVE METABOLIC [id number] 06:30:00* Test Item Value Reference Range Interpretation Comments SODIUM (test code = NA) 139 mmol/l 134.0-147.0 N POTASSIUM (test code = K) 4.1 mmol/L 3.6-5.2 N CHLORIDE (test code = CL) 101 mmol/l 98.0-107.0 N CARBON DIOXIDE (test code = CO2) 29.7 mmol/l 21.0-33.0 N ANION GAP (test code = GAP) 12.4 0-20 N GLUCOSE (test code = GLU) mg/dl 70.0-110.0 BLOOD UREA NITROGEN (test code = BUN) mg/dl 7.0-18.0 CREATININE (test code = CREAT) mg/dL 0.60-1.30 GFR NON BLACK (test code = GFRNONBLACK) mL/min 80-90 GFR BLACK (test code = GFRBLACK) mL/min 97-109 TOTAL PROTEIN (test code = PROT) gm/dL 6.4-8.2 ALBUMIN (test code = ALB) gm/dl 3.2-4.7 CALCIUM (test code = CA) mg/dl 8.0-10.5 BILIRUBIN TOTAL (test code = BILT) mg/dl 0.0-1.0 SGOT/AST (test code = AST) Units/L 15.0-37.0 SGPT/ALT (test code = ALT) Units/L 12.0-78.0 ALKALINE PHOSPHATASE TOTAL (test code = ALKP) Units/L 50.0-136 .0 CBC W/AUTO [id number] 06:24:00* Test Item Value Reference Range Interpretation Comments WHITE BLOOD CELL (test code = WBC) 9.7 K/mm3 4.5-11.0 N RED BLOOD CELL (test code = RBC) 3.59 M/mm3 3.80-5.20 L HEMOGLOBIN (test code = HGB) 10.6 gm/dL 12.0-16.0 L HEMATOCRIT (test code = HCT) 33.5 % 36.0-48.0 L MEAN CELL VOLUME (test code = MCV) 93.3 UM3 82.0-99.0 N MEAN CELL HGB (test code = MCH) 29.5 UUG 25.5-32.5 N MEAN CELL HGB CONCETRATION (test code = MCHC) 31.6 gm/dL 29.0-35. 5 N RED CELL DISTRIBUTION WIDTH (test code = RDW) 16.4 % 11.5-15. 0 H RED CELL DISTRIBUTION WIDTH SD (test code = RDW-SD) 55.2 fL 34 .8-50.2 H PLATELET COUNT (test code = PLT) 345 K/mm3 150-400 N MEAN PLATELET VOLUME (test code = MPV) 9.4 fl 7.4-10.4 N NEUTROPHIL % (test code = NT%) 66.4 % 49.0-76.0 N IMMATURE GRANULOCYTE % (test code = IG%) 0.3 % 0.0-0.4 N LYMPHOCYTE % (test code = LY%) 23.5 % 23.0-38.0 N MONOCYTE % (test code = MO%) 6.8 % 1.0-10.0 N EOSINOPHIL % (test code = EO%) 2.8 % 1.0-5.0 N BASOPHIL % (test code = BA%) 0.2 % 0.0-1.0 N NEUTROPHIL # (test code = NT#) 6.5 K/mm3 2.4-6.3 H IMMATURE GRANULOCYTE # (test code = IG#) 0.03 x10 3/uL 0.00-0.07 N LYMPHOCYTE # (test code = LY#) 2.3 K/mm3 1.2-4.0 N MONOCYTE # (test code = MO#) 0.7 K/mm3 0.0-0.6 H EOSINOPHIL # (test code = EO#) 0.3 K/MM3 0.0-0.7 N BASOPHIL # (test code = BA#) 0.0 K/mm3 0.0-0.2 N - CT HEAD/BRAIN W/O [id number] 06:13:00 FAX: Maia Gant MD [phone] Bernard: St: PRE Name: PADMINI WALTERS [facility] : 8 Age/S: 59/F [address] [facility] Unit: [id number] Loc: [address] Phys: [place] [id number] Acct: [id number] Dis Date: Status: PRE ER PHONE #: [phone] Exam Date: 10/31/2019 06 FAX #: [phone] Reason: RIGHT-SIDED KISER X 3 D EXAMS: CPT CODE: [id number] CT HEAD/BRAIN W/O CONT [id number] EXAM: - CT HEAD/BRAIN W/O CONT HISTORY: Headache. TECHNIQUE: Axial tomograms through the brain were obtained without intravenous contrast. This exam was performed according to our departmental dose-optimization program, which i ncludes automated exposure control, adjustment of the mA and/or kV accordi ng to patient size and/or use of iterative reconstruction technique. COMPARISON: June 30, 2019. FINDINGS: There is no intracranial hemorrhage, mass, or mass effect. The ventricular sys tem and sulci are age-appropriate. There is no evidence of acute infarctio n. The osseous structures and orbits, show no significant abnormal ities. The visualized sinuses are relatively clear. The soft tissu es are unremarkable. IMPRESSION: No acute intr acranial abnormality with no evidence of intracranial hemorrhage. at 0613 Rep orted and signed by: Patrick Velazquez M.D. CC: Maia Gant MD Technologist: RADAMES COX Trnscrd Dt/Tm: 10/31/2019 (0613) [id number] Orig Print D/T: S: 10/31/2019 (0616 PAGE 1 Signed Report [id number] 11:11:00* Test Item Value Reference Range Interpretation Comments GLUBED (test code = GLUBED) 90 mg/dL 70-110 N [id number] 07:29:00* Test Item Value Reference Range Interpretation Comments GLUBED (test code = GLUBED) 117 mg/dL 70-110 H [id number] 21:06:00* Test Item Value Reference Range Interpretation Comments GLUBED (test code = GLUBED) 90 mg/dL 70-110 N [id number] 16:06:00* Test Item Value Reference Range Interpretation Comments GLUBED (test code = GLUBED) 96 mg/dL 70-110 N [id number] 07:49:00* Test Item Value Reference Range Interpretation Comments GLUBED (test code = GLUBED) 105 mg/dL 70-110 N [id number] 12:06:00* Test Item Value Reference Range Interpretation Comments GLUBED (test code = GLUBED) 94 mg/dL 70-110 N [id number] 07:01:00* Test Item Value Reference Range Interpretation Comments GLUBED (test code = GLUBED) 85 mg/dL 70-110 N BASIC METABOLIC [id number] 06:07:00* Test Item Value Reference Range Interpretation Comments SODIUM (test code = NA) 141 mmol/l 134.0-147.0 N POTASSIUM (test code = K) 3.8 mmol/L 3.6-5.2 N CHLORIDE (test code = CL) 105 mmol/l 98.0-107.0 N CARBON DIOXIDE (test code = CO2) 29.7 mmol/l 21.0-33.0 N ANION GAP (test code = GAP) 10.1 0-20 N GLUCOSE (test code = GLU) 89 mg/dl 70.0-110.0 N BLOOD UREA NITROGEN (test code = BUN) 7 mg/dl 7.0-18.0 N CREATININE (test code = CREAT) 0.60 mg/dL 0.60-1.30 N GFR NON BLACK (test code = GFRNONBLACK) 108 mL/min 80-90 H GFR BLACK (test code = GFRBLACK) 130 mL/min 97-109 H CALCIUM (test code = CA) 9.0 mg/dl 8.0-10.5 N CBC W/AUTO [id number] 05:41:00* Test Item Value Reference Range Interpretation Comments WHITE BLOOD CELL (test code = WBC) 4.6 K/mm3 4.5-11.0 N RED BLOOD CELL (test code = RBC) 3.32 M/mm3 3.80-5.20 L HEMOGLOBIN (test code = HGB) 9.6 gm/dL 12.0-16.0 L HEMATOCRIT (test code = HCT) 31.3 % 36.0-48.0 L MEAN CELL VOLUME (test code = MCV) 94.3 UM3 82.0-99.0 N MEAN CELL HGB (test code = MCH) 28.9 UUG 25.5-32.5 N MEAN CELL HGB CONCETRATION (test code = MCHC) 30.7 gm/dL 29.0-35. 5 N RED CELL DISTRIBUTION WIDTH (test code = RDW) 15.8 % 11.5-15. 0 H RED CELL DISTRIBUTION WIDTH SD (test code = RDW-SD) 54.0 fL 34 .8-50.2 H PLATELET COUNT (test code = PLT) 280 K/mm3 150-400 N MEAN PLATELET VOLUME (test code = MPV) 10.1 fl 7.4-10.4 N NEUTROPHIL % (test code = NT%) 49.8 % 49.0-76.0 N IMMATURE GRANULOCYTE % (test code = IG%) 0.4 % 0.0-0.4 N LYMPHOCYTE % (test code = LY%) 25.8 % 23.0-38.0 N MONOCYTE % (test code = MO%) 19.4 % 1.0-10.0 H EOSINOPHIL % (test code = EO%) 4.4 % 1.0-5.0 N BASOPHIL % (test code = BA%) 0.2 % 0.0-1.0 N NEUTROPHIL # (test code = NT#) 2.3 K/mm3 2.4-6.3 L IMMATURE GRANULOCYTE # (test code = IG#) 0.02 x10 3/uL 0.00-0.07 N LYMPHOCYTE # (test code = LY#) 1.2 K/mm3 1.2-4.0 N MONOCYTE # (test code = MO#) 0.9 K/mm3 0.0-0.6 H EOSINOPHIL # (test code = EO#) 0.2 K/MM3 0.0-0.7 N BASOPHIL # (test code = BA#) 0.0 K/mm3 0.0-0.2 N [id number] 21:24:00* Test Item Value Reference Range Interpretation Comments GLUBED (test code = GLUBED) 82 mg/dL 70-110 N URIC [id number] 16:50:00* Test Item Value Reference Range Interpretation Comments URIC ACID (test code = URIC) 4.3 mg/dl 2.6-7.2 N [id number] 15:21:00* Test Item Value Reference Range Interpretation Comments GLUBED (test code = GLUBED) 84 mg/dL 70-110 N - NM BONE 3 [id number] 14:01:00 FAX: Ken Esquivel [phone] Bernard: St: [facility] FAX: Mehnaz Galindo MD [phone] Name: PADMINI MACKEY [facility] : 1960 Age/S: 59/F [address] [facility] Unit #: [id number] Loc: [address] Phys: [place] [address] Acct: [id number] Dis Date: Status: ADM IN PHONE #: [phone] Exam Date: 09/26/2019 1343 FAX #: [phone] Reason: OM LEFT FOOT EXAMS: CPT CODE: [id number] NM BONE 3 PHASE 07695 REASON FOR EXAM: Osteomyelitis of the left foot. T hree-phase nuclear medicine bone scan. Following the intravenous a dministration of 25 mCi of 99m technetium labeled MDP, three-phase bone sc an was performed. COMPARISON: Left foot study from September 24 Perfusion images show increased uptake in the left foot, medial and great toe area. The blood pool images likewise show a li near uptake along the medial foot and great toe, ill-defined. Delayed images do not show suspicious uptake at the great toe. Mid tars al uptake seen likely degenerative in nature given the symmetry. W hole body images do not show any suspicious foci in the ribs, spine or julissa or long bones. Degenerative changes suspected around the shoulders and pr ominently around the knees. Again tarsal bones symmetry of uptake noted. No great toe uptake present. IMPRESSION: No evidence of osteomy elitis. Increased perfusion activity in the medial left foot likely rel ated to soft tissue abnormality. Whole body study with prominent degenerative changes at the knees, mild degenerative changes at the shoulders. Tarsal bone activity likely degenerative, mild. Location: U 19 at 1401 Reported and signed by: Sukhdev Foreman M.D. CC: Ken Sánchez MD; Mehnaz Prater MD Technologist: MAHI VEE Trnscrd Date/Time/By: 9 (1401) : By: [facility] PAGE 1 Signed Report FAX: Ken Esquivel [phone] Bernard: St: [facility] FAX: Mehnaz Galindo MD [phone] --------- Name: PADMINI MACKEY [facility] : [birth year] Age/S: 59/F [address] [employer] Unit #: [id number] Loc: [address] [place], [place]: [place] [address] Acct: [id number] Dis Date: Status: ADM IN PHONE #: [phone] Exam Date: 09/26/2019 1343 FAX #: [phone] Reason: OM LEFT FOOT EXAMS: CPT CODE: [id number] NM BONE 3 PHASE 35157 <Continued> Orig Print D/T: S: 09/26/2019 (0040) PAGE 2 Signed Report [id number] 11:09:00* Test Item Value Reference Range Interpretation Comments GLUBED (test code = GLUBED) 110 mg/dL 70-110 N COMPREHENSIVE METABOLIC [id number] 07:58:00* Test Item Value Reference Range Interpretation Comments SODIUM (test code = NA) 140 mmol/l 134.0-147.0 N POTASSIUM (test code = K) 3.5 mmol/L 3.6-5.2 L CHLORIDE (test code = CL) 104 mmol/l 98.0-107.0 N CARBON DIOXIDE (test code = CO2) 29.1 mmol/l 21.0-33.0 N ANION GAP (test code = GAP) 10.4 0-20 N GLUCOSE (test code = GLU) 94 mg/dl 70.0-110.0 N BLOOD UREA NITROGEN (test code = BUN) 8 mg/dl 7.0-18.0 N CREATININE (test code = CREAT) 0.55 mg/dL 0.60-1.30 L GFR NON BLACK (test code = GFRNONBLACK) 119 mL/min 80-90 H GFR BLACK (test code = GFRBLACK) 144 mL/min 97-109 H TOTAL PROTEIN (test code = PROT) 6.7 gm/dL 6.4-8.2 N ALBUMIN (test code = ALB) 2.4 gm/dl 3.2-4.7 L CALCIUM (test code = CA) 9.1 mg/dl 8.0-10.5 N BILIRUBIN TOTAL (test code = BILT) 0.2 mg/dl 0.0-1.0 N SGOT/AST (test code = AST) 12 Units/L 15.0-37.0 L SGPT/ALT (test code = ALT) 8 Units/L 12.0-78.0 L ALKALINE PHOSPHATASE TOTAL (test code = ALKP) 81 Units/L 50.0-136 .0 N [id number] 07:58:00* Test Item Value Reference Range Interpretation Comments MAGNESIUM (test code = MAG) 1.7 mg/dl 1.8-2.4 L THYROID STIMULATING [id number] 07:58:00* Test Item Value Reference Range Interpretation Comments THYROID STIMULATING HORMONE (test code = TSH) 0.44 IU/ML 0.47-5.0 1 L Result is in International Units/milliliter [id number] 07:18:00* Test Item Value Reference Range Interpretation Comments HGBA1C% (test code = HGBA1C%) 5.4 %A1C 4.8-6.0 N ESTIMATED AVERAGE GLUCOSE (test code = EAG) 108 MG/DL CBC W/AUTO [id number] 06:38:00* Test Item Value Reference Range Interpretation Comments WHITE BLOOD CELL (test code = WBC) 7.1 K/mm3 4.5-11.0 N RED BLOOD CELL (test code = RBC) 3.58 M/mm3 3.80-5.20 L HEMOGLOBIN (test code = HGB) 10.4 gm/dL 12.0-16.0 L HEMATOCRIT (test code = HCT) 33.4 % 36.0-48.0 L MEAN CELL VOLUME (test code = MCV) 93.3 UM3 82.0-99.0 N MEAN CELL HGB (test code = MCH) 29.1 UUG 25.5-32.5 N MEAN CELL HGB CONCETRATION (test code = MCHC) 31.1 gm/dL 29.0-35. 5 N RED CELL DISTRIBUTION WIDTH (test code = RDW) 15.8 % 11.5-15. 0 H RED CELL DISTRIBUTION WIDTH SD (test code = RDW-SD) 53.4 fL 34 .8-50.2 H PLATELET COUNT (test code = PLT) 294 K/mm3 150-400 N MEAN PLATELET VOLUME (test code = MPV) 10.2 fl 7.4-10.4 N NEUTROPHIL % (test code = NT%) 63.7 % 49.0-76.0 N IMMATURE GRANULOCYTE % (test code = IG%) 0.6 % 0.0-0.4 H LYMPHOCYTE % (test code = LY%) 22.3 % 23.0-38.0 L MONOCYTE % (test code = MO%) 10.4 % 1.0-10.0 H EOSINOPHIL % (test code = EO%) 2.9 % 1.0-5.0 N BASOPHIL % (test code = BA%) 0.1 % 0.0-1.0 N NEUTROPHIL # (test code = NT#) 4.5 K/mm3 2.4-6.3 N IMMATURE GRANULOCYTE # (test code = IG#) 0.04 x10 3/uL 0.00-0.07 N LYMPHOCYTE # (test code = LY#) 1.6 K/mm3 1.2-4.0 N MONOCYTE # (test code = MO#) 0.7 K/mm3 0.0-0.6 H EOSINOPHIL # (test code = EO#) 0.2 K/MM3 0.0-0.7 N BASOPHIL # (test code = BA#) 0.0 K/mm3 0.0-0.2 N [id number] 06:37:00* Test Item Value Reference Range Interpretation Comments GLUBED (test code = GLUBED) 105 mg/dL 70-110 N [id number] 21:30:00* Test Item Value Reference Range Interpretation Comments GLUBED (test code = GLUBED) 106 mg/dL 70-110 N [id number] 16:17:00* Test Item Value Reference Range Interpretation Comments GLUBED (test code = GLUBED) 97 mg/dL 70-110 N [id number] 11:15:00* Test Item Value Reference Range Interpretation Comments GLUBED (test code = GLUBED) 104 mg/dL 70-110 N [id number] 09:26:00* Test Item Value Reference Range Interpretation Comments GLUBED (test code = GLUBED) 143 mg/dL 70-110 H [id number] 21:57:00* Test Item Value Reference Range Interpretation Comments GLUBED (test code = GLUBED) 123 mg/dL 70-110 H [id number] 15:17:00* Test Item Value Reference Range Interpretation Comments GLUBED (test code = GLUBED) 159 mg/dL 70-110 H [id number] 11:51:00* Test Item Value Reference Range Interpretation Comments GLUBED (test code = GLUBED) 83 mg/dL 70-110 N LACTIC [id number] 10:35:00* Test Item Value Reference Range Interpretation Comments LACTIC ACID (test code = LACT) 1.3 MMOL/L 0.4-2.0 N PROTHROMBIN [id number] 10:35:00* Test Item Value Reference Range Interpretation Comments PROTHROMBIN TIME PATIENT (test code = PTP) 13.5 SECONDS 9.9-12.8 H INTERNATIONAL NORMAL RATIO (test code = INR) 1.1 0.89-1.14 N THE INR IS TO BE USED ONLY FOR MONITORING ORAL ANTICOAGULANTTHERAPY. THE FOLLOWING ARE SUGGESTED RANGES FROM THE[employer]ICI[employer]:INDICATION INR VALUEPROPHYLAXIS OF VENOUS THROMBOSIS (ORTHOPEDIC SURGERY) 2.0 - 3.0PROPHYLAXIS OF VENOUS THROMBOSIS (OTHER THAN HIGH-RISK SURGERY) 2.0 - 3.0TREATMENT OF DEEP VEIN THROMBOSIS OR PULMONARY EMBOLISM 2.0 - 3.0PREVENTION OF SYSTEMIC EMBOLISM TISSUE HEART VALVES 2.0 - 3.0 ACUTE MYOCARDIAL INFARCTION (TO PREVENT SYSTEMIC EMBOLISM) 2.0 - 3.0 ACUTE MYOCARDIAL INFARCTION (TO PREVENT RECURRENT INFARCT) 2.5 - 3.0 VALVULAR HEART DISEASE 2.0 - 3.0 ATRIAL FIBRILATION 2.0 - 3.0BILEAFLET MECHANICAL VALVE IN AORTIC POSITION 2.0 - 3.0MECHANICAL PROSTHETIC VALVES (HIGH RISK) 2.5 - 3.5PRESENCE OF LUPUS ANTICOAGULANT OR ANTIPHOSPHOLIPID ANTIBODIES 2.5 - 3.5 COMPREHENSIVE METABOLIC [id number] 10:24:00* Test Item Value Reference Range Interpretation Comments SODIUM (test code = NA) 132 mmol/l 134.0-147.0 L POTASSIUM (test code = K) 3.5 mmol/L 3.6-5.2 L CHLORIDE (test code = CL) 97 mmol/l 98.0-107.0 L CARBON DIOXIDE (test code = CO2) 28.2 mmol/l 21.0-33.0 N ANION GAP (test code = GAP) 10.3 0-20 N GLUCOSE (test code = GLU) 105 mg/dl 70.0-110.0 N BLOOD UREA NITROGEN (test code = BUN) 12 mg/dl 7.0-18.0 N CREATININE (test code = CREAT) 0.77 mg/dL 0.60-1.30 N GFR NON BLACK (test code = GFRNONBLACK) 81 mL/min 80-90 N GFR BLACK (test code = GFRBLACK) 98 mL/min 97-109 N TOTAL PROTEIN (test code = PROT) 7.2 gm/dL 6.4-8.2 N ALBUMIN (test code = ALB) 2.7 gm/dl 3.2-4.7 L CALCIUM (test code = CA) 9.2 mg/dl 8.0-10.5 N BILIRUBIN TOTAL (test code = BILT) 0.4 mg/dl 0.0-1.0 N SGOT/AST (test code = AST) 11 Units/L 15.0-37.0 L SGPT/ALT (test code = ALT) 8 Units/L 12.0-78.0 L ALKALINE PHOSPHATASE TOTAL (test code = ALKP) 88 Units/L 50.0-136 .0 N COMPREHENSIVE METABOLIC [id number] 10:18:00* Test Item Value Reference Range Interpretation Comments SODIUM (test code = NA) 132 mmol/l 134.0-147.0 L POTASSIUM (test code = K) 3.5 mmol/L 3.6-5.2 L CHLORIDE (test code = CL) 97 mmol/l 98.0-107.0 L CARBON DIOXIDE (test code = CO2) 28.2 mmol/l 21.0-33.0 N ANION GAP (test code = GAP) 10.3 0-20 N GLUCOSE (test code = GLU) mg/dl 70.0-110.0 BLOOD UREA NITROGEN (test code = BUN) mg/dl 7.0-18.0 CREATININE (test code = CREAT) mg/dL 0.60-1.30 GFR NON BLACK (test code = GFRNONBLACK) mL/min 80-90 GFR BLACK (test code = GFRBLACK) mL/min 97-109 TOTAL PROTEIN (test code = PROT) gm/dL 6.4-8.2 ALBUMIN (test code = ALB) gm/dl 3.2-4.7 CALCIUM (test code = CA) mg/dl 8.0-10.5 BILIRUBIN TOTAL (test code = BILT) mg/dl 0.0-1.0 SGOT/AST (test code = AST) Units/L 15.0-37.0 SGPT/ALT (test code = ALT) Units/L 12.0-78.0 ALKALINE PHOSPHATASE TOTAL (test code = ALKP) Units/L 50.0-136 .0 - XR FOOT 3 + V [id number] 10:12:00 FAX: Mandy Rivera [phone] Bernard: St: REG FAX: Bhakti Penaloza MD [phone] Name: PADMINI MACKEY [facility] : 1960 Age/S: 59/F [address] [facility] Unit #: [id number] Loc: [address] Phys: Mandy Rivera WEB DESIGNER DEVELOPER [address] Acct: [id number] Dis Date: Status: REG ER PHONE #: [phone] Exam Date: 09/24/2019 1011 FAX #: [phone] Reason: swelling EXAMS: CPT CODE: [id number] XR FOOT 3 + V LT 05125 EXAM: XR FOOT 3 VIEWS, LEFT INDICATION: SWELLING LOCATION: B2 COMPARISON: None available TECHNIQUE: AP, lateral and oblique views of the left foot. FINDIN GS: No acute fracture or dislocation is identified. No osseous erosions. There are degenerative changes of interphalangeal joints. There is a small plantar calcaneal disease of 5. There is soft tissue edema of the forefoot. IMPRESSION: No acute fracture. Soft tissue edema of the forefoot. No osseous erosions to suggest osteomyelitis. at 1012 Reported and signed by: Edith Dover M.D. CC: Mandy Rivera WEB DESIGNER DEVELOPER; Bhakti Penaloza MD Technologist: FLAVIO SHARPE; JLUIA FORTUNE Trnscrd Date/Time/By: 09/24/2019 (1012) : By: [email or web address] PAGE 1 Signed Report FAX: Mandy Rivera [phone] Bernard: St: REG FAX: Bhakti Penaloza MD [phone] Name: PADMINI MACKEY [facility] : 1960 Age/S: 59/F [address] [facility] Unit #: [id number] Loc: [address] Phys: Mandy Rivera WEB DESIGNER DEVELOPER [address] Acct: [id number] Dis Date: Status: REG ER PHONE #: [phone] Exam Date: 09/24/2019 1011 FAX #: [phone] Reason: swelling EXAMS: CPT CODE: [id number] XR FOOT 3 + [place] [address] <Continued> Orig Print D/T: S: 09/24/2019 (3466) PAGE 2 Signed Report CBC W/AUTO [id number] 10:09:00 * Test Item Value Reference Range Interpretation Comments WHITE BLOOD CELL (test code = WBC) 14.5 K/mm3 4.5-11.0 H RED BLOOD CELL (test code = RBC) 3.43 M/mm3 3.80-5.20 L HEMOGLOBIN (test code = HGB) 10.0 gm/dL 12.0-16.0 L HEMATOCRIT (test code = HCT) 32.3 % 36.0-48.0 L MEAN CELL VOLUME (test code = MCV) 94.2 UM3 82.0-99.0 N MEAN CELL HGB (test code = MCH) 29.2 UUG 25.5-32.5 N MEAN CELL HGB CONCETRATION (test code = MCHC) 31.0 gm/dL 29.0-35. 5 N RED CELL DISTRIBUTION WIDTH (test code = RDW) 16.0 % 11.5-15. 0 H RED CELL DISTRIBUTION WIDTH SD (test code = RDW-SD) 55.0 fL 34 .8-50.2 H PLATELET COUNT (test code = PLT) 305 K/mm3 150-400 N MEAN PLATELET VOLUME (test code = MPV) 9.9 fl 7.4-10.4 N NEUTROPHIL % (test code = NT%) 75.1 % 49.0-76.0 N IMMATURE GRANULOCYTE % (test code = IG%) 0.4 % 0.0-0.4 N LYMPHOCYTE % (test code = LY%) 14.6 % 23.0-38.0 L MONOCYTE % (test code = MO%) 8.7 % 1.0-10.0 N EOSINOPHIL % (test code = EO%) 0.9 % 1.0-5.0 L BASOPHIL % (test code = BA%) 0.3 % 0.0-1.0 N NEUTROPHIL # (test code = NT#) 10.9 K/mm3 2.4-6.3 H IMMATURE GRANULOCYTE # (test code = IG#) 0.06 x10 3/uL 0.00-0.07 N LYMPHOCYTE # (test code = LY#) 2.1 K/mm3 1.2-4.0 N MONOCYTE # (test code = MO#) 1.3 K/mm3 0.0-0.6 H EOSINOPHIL # (test code = EO#) 0.1 K/MM3 0.0-0.7 N BASOPHIL # (test code = BA#) 0.0 K/mm3 0.0-0.2 N - CT CHEST W/O [id number] 09:40:00 FAX: Scar Sood [phone] Bernard: JOSE MARIA St: [facility] Name: PADMINI WALTERS [facility] : [birth year] Age/S: 59/F [address] [facility] Unit: [id number] Loc: E.[place], [place]: [place] [address] Acct: [id number] Dis Date: Status: DEP CLI PHONE #: [phone] Exam Date: 09/07/2019 1150 FAX #: [phone] Reason: PNA, ABNORMAL FINDINGS OF LUNG FIELD EXAMS: CPT CODE: [id number] CT CHEST W/O CONTRAST 50846 HISTORY: Cough, pneumonia. CT chest, unenhanced. Reformatted sagittal and coronal images. COMPARISON: June 30, 2019 Automated exposure control, ite rative reconstruction technique, and/or adjustment of mA and/or kV accordi ng to patient's size was utilized for optimum radiation dose reduction. No intravenous contrast was administered. Significant pathology m ay be obscured. Prominent thyroid tissue appearance seen lik toney goiter with multiple calcifications but similar configuration compared to the previous study. Thyroid sonography may be considered. The upper mediastinum without any pathologic adenopathy. Tiny shoddy l ymph nodes. Normal heart size. Descending aorta intact. Chest wall stru ctures are symmetric. No axillary adenopathy. The lung window set tings show hyperinflated pattern but the scattered groundglass areas are n early completely resolved. Only some minimal components peripherally in t he anterior lung camacho. The lung pattern at the lung bases above the diaphragms remains exaggerated and even more so than before. No focal consolidation bronchiectasis or honeycombing is seen. Bronchial tree int act. Tree-in-bud appearance mid to lower lung camacho likely inters titial inflammatory changes. Upper abdomen showing the parti ally calcified right renal cyst. Bony structures are intact. IMPRESSION: Near complete clearing of the groundglass opacities in the upper lobes, possibly tiny amount of residual peripherally and anteriorly. The lower lobes just above the diaphragm show more interstitial disease diffusely than before. No evidence of honeyco mbing or effusion. No consolidation or bronchiectasis. PA GE 1 Signed Report (CONTINUED) FAX: Scar Sood [phone] Bernard: EM St: DEP Name: Vanessa MACKEY [facility] : 1960 Age /S: 59/F [address] [facility] Unit: [id number] Loc: E .[place], [place]: [place] [address] Acct: [id number] Dis Date: Status: DEP CLI PHONE #: [phone] E xam Date: 09/07/2019 1150 FAX #: [phone] Reason: PNA, ABNORMAL FINDINGS OF LUNG FIELD EXAMS: CPT CODE: [id number] CT CHEST W/O CONTRAST 87033 <Continued> Location: 9 at 0940 Reported and signed by: Sukhdev Foreman M.D. CC: Scar Stephen MD Technologist: BOSTON ZIMMERMAN; PRATIBHA MEADE Trnscrd Dt/Tm: 09/08/2019 (0940) AnnieM Orig Print D/T: S: 09/08/2019 (0443 PAGE 2 Signed Report [id number] 00:29:00* Test Item Value Reference Range Interpretation Comments GLUBED (test code = GLUBED) 91 mg/dL 70-110 N [id number] 00:29:00* Test Item Value Reference Range Interpretation Comments GLUBED (test code = GLUBED) 144 mg/dL 70-110 H [id number] 00:29:00* Test Item Value Reference Range Interpretation Comments GLUBED (test code = GLUBED) 174 mg/dL 70-110 H [id number] 07:19:00* Test Item Value Reference Range Interpretation Comments HGBA1C% (test code = HGBA1C%) 5.4 %A1C 4.8-6.0 N ESTIMATED AVERAGE GLUCOSE (test code = EAG) 108 MG/DL [id number] 07:14:00* Test Item Value Reference Range Interpretation Comments GLUBED (test code = GLUBED) 114 mg/dL 70-110 H CBC W/AUTO [id number] 06:28:00* Test Item Value Reference Range Interpretation Comments WHITE BLOOD CELL (test code = WBC) 5.1 K/mm3 4.5-11.0 N RED BLOOD CELL (test code = RBC) 3.66 M/mm3 3.80-5.20 L HEMOGLOBIN (test code = HGB) 10.7 gm/dL 12.0-16.0 L HEMATOCRIT (test code = HCT) 34.7 % 36.0-48.0 L MEAN CELL VOLUME (test code = MCV) 94.8 UM3 82.0-99.0 N MEAN CELL HGB (test code = MCH) 29.2 UUG 25.5-32.5 N MEAN CELL HGB CONCETRATION (test code = MCHC) 30.8 gm/dL 29.0-35. 5 N RED CELL DISTRIBUTION WIDTH (test code = RDW) 15.8 % 11.5-15. 0 H RED CELL DISTRIBUTION WIDTH SD (test code = RDW-SD) 53.7 fL 34 .8-50.2 H PLATELET COUNT (test code = PLT) 320 K/mm3 150-400 N MEAN PLATELET VOLUME (test code = MPV) 9.5 fl 7.4-10.4 N NEUTROPHIL % (test code = NT%) 52.6 % 49.0-76.0 N IMMATURE GRANULOCYTE % (test code = IG%) 0.2 % 0.0-0.4 N LYMPHOCYTE % (test code = LY%) 35.0 % 23.0-38.0 N MONOCYTE % (test code = MO%) 9.7 % 1.0-10.0 N EOSINOPHIL % (test code = EO%) 2.3 % 1.0-5.0 N BASOPHIL % (test code = BA%) 0.2 % 0.0-1.0 N NEUTROPHIL # (test code = NT#) 2.7 K/mm3 2.4-6.3 N IMMATURE GRANULOCYTE # (test code = IG#) 0.01 x10 3/uL 0.00-0.07 N LYMPHOCYTE # (test code = LY#) 1.8 K/mm3 1.2-4.0 N MONOCYTE # (test code = MO#) 0.5 K/mm3 0.0-0.6 N EOSINOPHIL # (test code = EO#) 0.1 K/MM3 0.0-0.7 N BASOPHIL # (test code = BA#) 0.0 K/mm3 0.0-0.2 N [id number] 22:06:00* Test Item Value Reference Range Interpretation Comments GLUBED (test code = GLUBED) 130 mg/dL 70-110 H [id number] 16:41:00* Test Item Value Reference Range Interpretation Comments GLUBED (test code = GLUBED) 128 mg/dL 70-110 H - XR CHEST 2 [id number] 15:24:00 FAX: Tosin Reno MD [phone] Bernard: St: [facility] FAX: Casimiro Hubbard [phone] Name: PADMINI MACKEY [facility] : 1960 Age/S: 59/F [address] [facility] Unit #: [id number] Loc: [address] [place]: [place] [address] Acct: [id number] Dis Date: Status: ADM IN PHONE #: [phone] Exam Date: 08/17/2019 1521 FAX #: [phone] Reason: follow up pneumonia EXAMS: CPT CODE: [id number] XR CHEST 2 V 85856 REASON FOR EXAM: Pneumonia. COMPARISON: August 16, 2019. Chest, 2 views, frontal and lateral projection. The lungs are well- inflated with some minimal basilar densities that could indicate atelectasis or scarring, less likely pneumonia. No focal abnormality on the lateral view. Heart size is normal. No effusion or pneumothorax can be seen. Osseous structures appear to be intact. . IMPRESSION: No acute cardiopulmonary disease. Minimal basilar scarring likely. Location: U19 at 1524 Reported and signed by: Sukhdev Foreman M.D. CC: Tosin Cabrera MD; Adriana Nino MD Technologist: LATESHA LOW PAGE 1 Signed Report FAX: Tosin Reno MD [phone] Bernard: St: ADM FAX: Casimiro Hubbard [phone] Name: KT MACKEY [facility] : 1960 Age/S: 59/F [address] [facility] Unit #: [id number] Loc: [address] Phys: [place] [address] Acct: [id number] Dis Date: Status: ADM IN PHONE #: [phone] Exam Da te: 08/17/2019 1521 FAX #: [phone] Reason: fo llow up pneumonia EXAMS: CPT CODE: [id number] XR CHEST 2 V 54158 <Continued> Trnscrd Date/Time/By: 08/17/2019 (7574) : By: [facility] PAGE 2 Signed Report TROPONIN I RAPID 2019-08-16 18:17:00* Test Item Value Reference Range Interpretation Comments TROPONIN I RAPID (test code = TROPIRAP) 0.00 0.00-0.08 N Negative: <= 0.08 Positive: >= 0.09An elevated troponin value alone is not sufficient todiagnose a myocardial infarction. Rather, the patient'sclinical presentation (history, physical exam) and ECGshould be used in conjunction with troponin in thediagnostic evaluation of suspected myocardial infarction.A serial sampling protocol is recommended to facilitatethe identification of temporal changes in troponin levelscharacteristic of [place]. BASIC METABOLIC [id number] 16:45:00* Test Item Value Reference Range Interpretation Comments SODIUM (test code = NA) 140 mmol/l 134.0-147.0 N POTASSIUM (test code = K) 3.8 mmol/L 3.6-5.2 N CHLORIDE (test code = CL) 101 mmol/l 98.0-107.0 N CARBON DIOXIDE (test code = CO2) 26.9 mmol/l 21.0-33.0 N ANION GAP (test code = GAP) 15.9 0-20 N GLUCOSE (test code = GLU) 99 mg/dl 70.0-110.0 N BLOOD UREA NITROGEN (test code = BUN) 6 mg/dl 7.0-18.0 L CREATININE (test code = CREAT) 0.75 mg/dL 0.60-1.30 N GFR NON BLACK (test code = GFRNONBLACK) 83 mL/min 80-90 N GFR BLACK (test code = GFRBLACK) 101 mL/min 97-109 N CALCIUM (test code = CA) 9.7 mg/dl 8.0-10.5 N B-TYPE NATRIURETIC [id number] 16:45:00* Test Item Value Reference Range Interpretation Comments B-TYPE NATRIURETIC PEPTIDE (test code = BNP) 31 PG/ML 5-100 N BASIC METABOLIC [id number] 16:37:00* Test Item Value Reference Range Interpretation Comments SODIUM (test code = NA) 140 mmol/l 134.0-147.0 N POTASSIUM (test code = K) 3.8 mmol/L 3.6-5.2 N CHLORIDE (test code = CL) 101 mmol/l 98.0-107.0 N CARBON DIOXIDE (test code = CO2) 26.9 mmol/l 21.0-33.0 N ANION GAP (test code = GAP) 15.9 0-20 N GLUCOSE (test code = GLU) 99 mg/dl 70.0-110.0 N BLOOD UREA NITROGEN (test code = BUN) 6 mg/dl 7.0-18.0 L CREATININE (test code = CREAT) 0.75 mg/dL 0.60-1.30 N GFR NON BLACK (test code = GFRNONBLACK) 83 mL/min 80-90 N GFR BLACK (test code = GFRBLACK) 101 mL/min 97-109 N CALCIUM (test code = CA) 9.7 mg/dl 8.0-10.5 N B-TYPE NATRIURETIC [id number] 16:37:00* Test Item Value Reference Range Interpretation Comments B-TYPE NATRIURETIC PEPTIDE (test code = BNP) PG/ML 5-100 BASIC METABOLIC [id number] 16:36:00* Test Item Value Reference Range Interpretation Comments SODIUM (test code = NA) 140 mmol/l 134.0-147.0 N POTASSIUM (test code = K) 3.8 mmol/L 3.6-5.2 N CHLORIDE (test code = CL) 101 mmol/l 98.0-107.0 N CARBON DIOXIDE (test code = CO2) 26.9 mmol/l 21.0-33.0 N ANION GAP (test code = GAP) 15.9 0-20 N GLUCOSE (test code = GLU) mg/dl 70.0-110.0 BLOOD UREA NITROGEN (test code = BUN) mg/dl 7.0-18.0 CREATININE (test code = CREAT) mg/dL 0.60-1.30 GFR NON BLACK (test code = GFRNONBLACK) mL/min 80-90 GFR BLACK (test code = GFRBLACK) mL/min 97-109 CALCIUM (test code = CA) mg/dl 8.0-10.5 B-TYPE NATRIURETIC [id number] 16:36:00* Test Item Value Reference Range Interpretation Comments B-TYPE NATRIURETIC PEPTIDE (test code = BNP) PG/ML 5-100 CBC W/AUTO [id number] 16:29:00* Test Item Value Reference Range Interpretation Comments WHITE BLOOD CELL (test code = WBC) 7.0 K/mm3 4.5-11.0 N RED BLOOD CELL (test code = RBC) 3.89 M/mm3 3.80-5.20 N HEMOGLOBIN (test code = HGB) 11.5 gm/dL 12.0-16.0 L HEMATOCRIT (test code = HCT) 36.1 % 36.0-48.0 N MEAN CELL VOLUME (test code = MCV) 92.8 UM3 82.0-99.0 N MEAN CELL HGB (test code = MCH) 29.6 UUG 25.5-32.5 N MEAN CELL HGB CONCETRATION (test code = MCHC) 31.9 gm/dL 29.0-35. 5 N RED CELL DISTRIBUTION WIDTH (test code = RDW) 15.7 % 11.5-15. 0 H RED CELL DISTRIBUTION WIDTH SD (test code = RDW-SD) 52.4 fL 34 .8-50.2 H PLATELET COUNT (test code = PLT) 356 K/mm3 150-400 N MEAN PLATELET VOLUME (test code = MPV) 9.2 fl 7.4-10.4 N NEUTROPHIL % (test code = NT%) 71.2 % 49.0-76.0 N IMMATURE GRANULOCYTE % (test code = IG%) 0.3 % 0.0-0.4 N LYMPHOCYTE % (test code = LY%) 22.2 % 23.0-38.0 L MONOCYTE % (test code = MO%) 5.7 % 1.0-10.0 N EOSINOPHIL % (test code = EO%) 0.3 % 1.0-5.0 L BASOPHIL % (test code = BA%) 0.3 % 0.0-1.0 N NEUTROPHIL # (test code = NT#) 5.0 K/mm3 2.4-6.3 N IMMATURE GRANULOCYTE # (test code = IG#) 0.02 x10 3/uL 0.00-0.07 N LYMPHOCYTE # (test code = LY#) 1.6 K/mm3 1.2-4.0 N MONOCYTE # (test code = MO#) 0.4 K/mm3 0.0-0.6 N EOSINOPHIL # (test code = EO#) 0.0 K/MM3 0.0-0.7 N BASOPHIL # (test code = BA#) 0.0 K/mm3 0.0-0.2 N - XR CHEST 1 [id number] 16:22:00 Bernard: St: PRE Name: PADMINI HUERTA [facility] : [birth year] Age/S: 59/F [address] [facility] Unit #: [id number] Loc: [place], [place]: [place] [address] Acct: [id number] Dis Date: Status: PRE ER PHONE #: [phone] Exam Date: 08/16/2019 1616 FAX #: [phone] Reason: SOB EXAMS: CPT CODE: [id number] XR CHEST 1 V 69669 Site ID: [id number] HISTORY: Shortness of breath COMPARISON: Chest x-ray July 01, 2019 FINDINGS: Persistent patchy mild groundglass alveolitis remains present bilaterally, which could be inflammatory in etiology. Th ere appears to be more streaky associated basilar atelectasis currently. The heart and pulmonary vasculature is normal. [place] us structures are unremarkable. IMPRESSION: Pe rsistent patchy mild groundglass alveolitis remains present bilaterally, which could be inflammatory in etiology. There appears to be more stre aky associated basilar atelectasis currently. at 1622 Reported and s igned by: Steve Infante M.D. CC: Technologist: LATESHA LOW Trnnhrd Date/Time/By: 08/16/2019 (1622) : By: [email or web address] PAGE 1 Signed Report Bernard: St: PRE Name: PADMINI TOSCANO [facility] : 1960 Age/S: 59/F [address] [facility] Unit #: [id number] L oc: [place], [place]: [place] [address] Acct: [id number] Dis Date: Status: PRE ER PHONE #: [phone] Exam Date: 08/16/2019 1616 FAX #: [phone] Re ason: SOB EXAMS: CPT CODE: [id number] XR CHEST 1 V 06488 <Continued> Orig Print D/T: S: 08/16/2019 (2928) PAGE 2 Signed Report RHEUMATOID FACTOR [id number] 08:33:00* Test Item Value Reference Range Interpretation Comments RHEUMATOID FACTOR SCREEN (test code = RA) POS NEGATIVE A PER DARION MOORE FROM [employer],SPECIMEN IS QNS FORANCA P C..PATIENT DISCHA RGED ON 07/01/19.. E.LAB.GWV158 162. RHEUMATOID FACTOR [id number] 08:33:00* Test Item Value Reference Range Interpretation Comments RHEUMATOID FACTOR TITER (test code = RAT) >650.0 IU/mL 0.0-13.9 A Results confirmed ondilution.Performed At: [facility] [address] [id number] Portillo MD Ph:[phone] performed at BPT [address] , [place] [address]SLizeth Ng MD PER DARION MOORE FROM [employer],SPECIMEN IS QNS FORANCA P C..PATIENT DISCHA RGED ON 07/01/19.. E.LAB.CAY185 1621. ANTINUCLEAR ANTIBODIES TITER 2019-07-08 08:33:00* Test Item Value Reference Range Interpretation Comments LARRY DIRECT (test code = ANADIR) Negative () Negative <1:80 Borderline 1:80 Positive >1:80Performed At: [facility] [id number] Portillo MD Ph:[phone] PER DARION MOORE FROM [employer],SPECIMEN IS QNS FORANCA P C..PATIENT DISCHA RGED ON 07/01/19.. E.LAB.UJB058 1621. ABS ANTI-NEUT CYTO P [id number] 08:33:00* Test Item Value Reference Range Interpretation Comments MYELOPEROXIDASE ABS (test code = MPOAB) QUANT NOT SUFFICIENT U/mL ( ) Quantity was not sufficient for analysis.Notified: Amanda Infante at account.07/07/2019Viktoria AB ANTI-NEUTROPHIL CYTO C (test code = NEUTCABC) TEST NOT PERFORMED titer () Test not performed AB ANTI-NEUTROPHIL CYTO. P (test code = NEUTCAB-P) TEST NOT PERF ORMED titer () Test not performed PROTEINASE 3 ABS (NH-3) (test code = NH-3) TEST NOT PERFORMED U/mL () Test not performed ATYPICAL ANCA (test code = ANCACOM) TEST NOT PERFORMED titer () Test not performedPerformed At: [address] [id number] Kelly MD Ph:[phone] PER DARION MOORE FROM [facility],SPECIMEN IS QNS FORANCA P C..PATIENT DISCHA RGED ON 07/01/19.. E.LAB.SDV47607/[id number] 1621. AG STREPTOCOCCUS PNEUMO/URINE 2019-07-06 02:33:00* Test Item Value Reference Range Interpretation Comments AG STREPTOCOCCUS PNEUMO/URINE (test code = STREPPNAG) Negative Negative TEST PERFORMED AT [address] [address] LEGIONELLA ANTIGEN,URINE,[id number] 02:33:00* Test Item Value Reference Range Interpretation Comments LEGIONELLA ANTIGEN,URINE,FARSHAD (test code = LEGAGUR) Negative Neg ative Presumptive negative for L. pneumophila serogroup 1 antigenin urine, suggesting no recent or current infection.Legionnaires' disease cannot be ruled out since otherserogroups and species may also cause disease.Performed At: [address] [id number] Kelly MD Ph:[phone] PERFORMED AT [address] [address] AG STREPTOCOCCUS PNEUMO/[id number] 08:16:00* Test Item Value Reference Range Interpretation Comments AG STREPTOCOCCUS PNEUMO/URINE (test code = STREPPNAG) Negative Negative TEST PERFORMED AT [address] [address] LEGIONELLA ANTIGEN,URINE,[id number] 08:16:00* Test Item Value Reference Range Interpretation Comments LEGIONELLA ANTIGEN,URINE,FARSHAD (test code = LEGAGUR) NEG ATIVE RHEUMATOID FACTOR [id number] 09:23:00* Test Item Value Reference Range Interpretation Comments RHEUMATOID FACTOR SCREEN (test code = RA) POS NEGATIVE A RHEUMATOID FACTOR [id number] 09:23:00* Test Item Value Reference Range Interpretation Comments RHEUMATOID FACTOR TITER (test code = RAT) >650.0 IU/mL 0.0-13.9 A Results confirmed ondilution.Performed At: [facility] [address] [id number] Portillo MD Ph:[phone] performed at BPT [address] , [place] [id number] Ng MD ANTINUCLEAR ANTIBODIES [id number] 09:23:00* Test Item Value Reference Range Interpretation Comments LARRY DIRECT (test code = ANADIR) Negative () Negative <1:80 Borderline 1:80 Positive >1:80Performed At: [facility] [address] [id number] Portillo MD Ph:[phone] ABS ANTI-NEUT CYTO P [id number] 09:23:00* Test Item Value Reference Range Interpretation Comments MYELOPEROXIDASE ABS (test code = MPOAB) U/mL 0.0-9.0 AB ANTI-NEUTROPHIL CYTO C (test code = NEUTCABC) titer NEG:< 1:20 AB ANTI-NEUTROPHIL CYTO. P (test code = NEUTCAB-P) titer NEG :<1:20 PROTEINASE 3 ABS (NH-3) (test code = NH-3) U/mL 0.0-3.5 ATYPICAL ANCA (test code = ANCACOM) titer NEG:<1:20 RHEUMATOID FACTOR [id number] 21:44:00* Test Item Value Reference Range Interpretation Comments RHEUMATOID FACTOR SCREEN (test code = RA) POS NEGATIVE A RHEUMATOID FACTOR [id number] 21:44:00* Test Item Value Reference Range Interpretation Comments RHEUMATOID FACTOR TITER (test code = RAT) ANTINUCLEAR ANTIBODIES [id number] 21:44:00* Test Item Value Reference Range Interpretation Comments LARRY DIRECT (test code = ANADIR) NEGATIVE ABS ANTI-NEUT CYTO P [id number] 21:44:00* Test Item Value Reference Range Interpretation Comments MYELOPEROXIDASE ABS (test code = MPOAB) U/mL 0.0-9.0 AB ANTI-NEUTROPHIL CYTO C (test code = NEUTCABC) titer NEG:< 1:20 AB ANTI-NEUTROPHIL CYTO. P (test code = NEUTCAB-P) titer NEG :<1:20 PROTEINASE 3 ABS (NH-3) (test code = NH-3) U/mL 0.0-3.5 ATYPICAL ANCA (test code = ANCACOM) titer NEG:<1:20 CBC W/AUTO [id number] 08:36:00* Test Item Value Reference Range Interpretation Comments WHITE BLOOD CELL (test code = WBC) 7.4 K/mm3 4.5-11.0 N RED BLOOD CELL (test code = RBC) 2.88 M/mm3 3.80-5.20 L HEMOGLOBIN (test code = HGB) 9.3 gm/dL 12.0-16.0 L HEMATOCRIT (test code = HCT) 28.2 % 36.0-48.0 L MEAN CELL VOLUME (test code = MCV) 97.9 UM3 82.0-99.0 N MEAN CELL HGB (test code = MCH) 32.3 UUG 25.5-32.5 N MEAN CELL HGB CONCETRATION (test code = MCHC) 33.0 gm/dL 29.0-35. 5 N RED CELL DISTRIBUTION WIDTH (test code = RDW) 15.6 % 11.5-15. 0 H RED CELL DISTRIBUTION WIDTH SD (test code = RDW-SD) 55.7 fL 34 .8-50.2 H PLATELET COUNT (test code = PLT) 224 K/mm3 150-400 N MEAN PLATELET VOLUME (test code = MPV) 9.9 fl 7.4-10.4 N NEUTROPHIL % (test code = NT%) 61.4 % 49.0-76.0 N IMMATURE GRANULOCYTE % (test code = IG%) 0.3 % 0.0-0.4 N LYMPHOCYTE % (test code = LY%) 23.2 % 23.0-38.0 N MONOCYTE % (test code = MO%) 13.2 % 1.0-10.0 H EOSINOPHIL % (test code = EO%) 1.5 % 1.0-5.0 N BASOPHIL % (test code = BA%) 0.4 % 0.0-1.0 N NEUTROPHIL # (test code = NT#) 4.5 K/mm3 2.4-6.3 N IMMATURE GRANULOCYTE # (test code = IG#) 0.02 x10 3/uL 0.00-0.07 N LYMPHOCYTE # (test code = LY#) 1.7 K/mm3 1.2-4.0 N MONOCYTE # (test code = MO#) 1.0 K/mm3 0.0-0.6 H EOSINOPHIL # (test code = EO#) 0.1 K/MM3 0.0-0.7 N BASOPHIL # (test code = BA#) 0.0 K/mm3 0.0-0.2 N Specimen comments: MAY USE BLOOD IN LAB- XR CHEST 2 [id number] 07:35:00 FAX: Scar Sood [phone] Bernard: St: ADM FAX: Casimiro Hubbard [phone] Name: PADMINI MACKEY [facility] : 1960 Age/S: 59/F [address] [facility] Unit #: [id number] Loc: [address] [place] [address] Phys: [place] [id number] Acct: [id number] Dis Date: Status: ADM IN PHONE #: [phone] Exam Date: 07/01/2019 0720 FAX #: [phone] Reason: Followup, pulmonary i nfiltrates, rheumatoid art EXAMS: CPT CODE: [id number] XR CHEST 2 V 60485 EXAM: - XR CHEST 2 V HISTORY: Followup, pulmonary infiltrates, rheumatoid arthritis Location code:C3 COMPARISON: 06/30/2019 FINDINGS: PA and lateral view of the chest is provided. Heart size and vascularity are within normal daley its. Coarse bilateral parenchymal opacities are similar with prior exam. There is no pneumothorax. IMPRESSION: Unc hanged coarse bilateral pulmonary opacities possibly due to edema or pne umonia. at 0735 Reported and signed by: Ty Willams M.D. CC: Scar Stephen MD; Adriana Nino MD Technologist: [facility] Date/Time/By: 07/01/2019 (3283) : By: [email or web address] PAGE 1 Signed Report FAX: Scar Sood [phone] Bernard: St: ADM FAX: Casimiro Hubbard [phone] ------- Name: PADMINI MACKEY [facility] : [birth year] Age/S: 59/F [address] [facility] Unit #: [id number] Loc: [address] [place], [place]: [place] [address] Acct: [id number] Dis Date: Status: ADM IN PHONE #: [phone] Exam Date: 07/01/2019719 FAX #: [phone] Reason: Followup, pulmonary infiltrates, rheumatoid art EXAMS: CPT CODE: [id number] XR CHEST 2 V 93776 <Continued> Orig Print D/T: S: 07/01/2019 (6506) PAGE 2 Signed Report URINALYSIS [id number] 04:47:00* Test Item Value Reference Range Interpretation Comments UA COLOR (test code = COLU) YELLOW UA APPEARANCE (test code = APPU) SLHZY UA GLUCOSE DIPSTICK (test code = DGLUU) NORMAL mg/dl NORMAL UA BILIRUBIN DIPSTICK (test code = BILU) NEGATIVE mg/dL NEGATIVE UA KETONE DIPSTICK (test code = KETU) NEGATIVE mg/dl NEGATIVE UA SPECIFIC GRAVITY (test code = SGU) 1.020 1.000-1.030 UA BLOOD DIPSTICK (test code = SOLE) 25 Fredrick/micL Fredrick/micL NEGATIVE A UA PH DIPSTICK (test code = RAUL) 6.0 5.0-9.0 UA PROTEIN DIPSTICK (test code = PROU) 15 mg/dl mg/dl NEGATIVE A UA UROBILINIOGEN DIPSTICK (test code = URO) NORMAL mg/dl NORMAL UA NITRITE DIPSTICK (test code = TIMOTHY) NEGATIVE NEGATIVE UA LEUKOCYTE ESTERASE DIPSTICK (test code = LEUU) 25 Jhoana/micL Le u/micL NEGATIVE A UA WBC (test code = WBCU) 10-20 WBC/HPF NONE A UA RBC (test code = RBCU) 3-5 RBC/HPF 0-3 UA EPITHELIAL CELLS (test code = EPIU) 5-10 EPI/HPF 0-3 A UA BACTERIA (test code = BACU) MOD NONE UA RENAL CELLS (test code = NAYAN) FEW UA HYALINE CAST (test code = HYALU) 0-2 /LPF <1/LPF UA FINE GRANULAR CAST (test code = FINEU) 0-1 /LPF URINALYSIS [id number] 04:40:00* Test Item Value Reference Range Interpretation Comments UA COLOR (test code = COLU) YELLOW UA APPEARANCE (test code = APPU) SLHZY UA GLUCOSE DIPSTICK (test code = DGLUU) NORMAL mg/dl NORMAL UA BILIRUBIN DIPSTICK (test code = BILU) NEGATIVE mg/dL NEGATIVE UA KETONE DIPSTICK (test code = KETU) NEGATIVE mg/dl NEGATIVE UA SPECIFIC GRAVITY (test code = SGU) 1.020 1.000-1.030 UA BLOOD DIPSTICK (test code = SOLE) 25 Fredrick/micL Fredrick/micL NEGATIVE A UA PH DIPSTICK (test code = RAUL) 6.0 5.0-9.0 UA PROTEIN DIPSTICK (test code = PROU) 15 mg/dl mg/dl NEGATIVE A UA UROBILINIOGEN DIPSTICK (test code = URO) NORMAL mg/dl NORMAL UA NITRITE DIPSTICK (test code = TIMOTHY) NEGATIVE NEGATIVE UA LEUKOCYTE ESTERASE DIPSTICK (test code = LEUU) 25 Jhoana/micL Le u/micL NEGATIVE A UA WBC (test code = WBCU) WBC/HPF NONE UA RBC (test code = RBCU) RBC/HPF 0-3 UA EPITHELIAL CELLS (test code = EPIU) EPI/HPF 0-3 UA BACTERIA (test code = BACU) NONE [id number] 00:59:00* Test Item Value Reference Range Interpretation Comments GLUBED (test code = GLUBED) 109 mg/dL 70-110 N [id number] 17:48:00* Test Item Value Reference Range Interpretation Comments GLUBED (test code = GLUBED) 122 mg/dL 70-110 H - XR SHOULDER 2 + V [id number] 07:04:00 FAX: Yisel Rodriguez MD Bernard: St: REG Name: PADMINI HUERTA [facility] : [birth year] Age/S: 59/F [address] [facility] Unit #: [id number] Loc: [address] Phys: [place] [address] Acct: [id number] Dis Date: Status: REG ER PHONE #: [phone] Exam Date: 06/30/2019 0702 FAX #: [phone] Reason: shoulder injury EXAMS: CPT CODE: [id number] XR SHOULDER 2 + [place] [id number] EXAM: - XR SHOULDER 2 + V BI HISTORY: shoulder injury Location code:C3 COMPARISON: None available time of interpretation. FINDINGS: Internal and external rotated AP views of bilateral shoulders with scapul ar Y view is provided. There is no acute fracture or malalignment. The os seous structures are intact. The humeral head is located. 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 IMPRESSION: No ac liang osseous abnormality. at 0704 Reported and signed by: Ty Willams M.D. CC: Yisel Rodriguez MD Technologist: LATESHA LOW; BRAXTON CHI Trnnhrd Date/Time/By: 06/30/2019 (0704) : By: [email or web address] PAGE 1 Signed Report FAX: Noemi Rodriguez MD Bernard: St: REG Name: PADMINI MACKEY [facility] : 1960 Age/S: 59/F [address] [employer] Unit #: [id number] Loc: [address] Phys: [place] [address] Acct: [id number] Dis Date: Status: REG ER PHONE #: [phone] Exam Date: 0702 FAX #: [phone] Reason: shoulder injury EXAMS: CPT CODE: [id number] XR SHOULDER 2 + V 26704 <Continued> Orig Print D/T: S: 06/30/2019 (0743) PAGE 2 Signed Report - XR WRIST 3 + V [id number] 07:03:00 FAX: Yisel Rodriguez MD Bernard: St: REG Name: PADMINI HUERTA [facility] : [birth year] Age/S: 59/F [address] [employer] Unit #: [id number] Loc: [address] Phys: [place] [address] Acct: [id number] Dis Date: Status: REG ER PHONE #: [phone] Exam Date: 06/30/2019701 FAX #: [phone] Reason: wrist injury EXAMS: CPT CODE: [id number] XR WRIST 3 + [place] [id number] EXAM: - XR WRIST 3 + V BI HISTORY: wrist injury Location code:C3 COMPAR OMID: None available time of interpretation. FINDINGS: PA, o blique, and lateral view of bilateral wrists are provided. There is no acu te fracture or malalignment. The joint spaces are preserved. The osseous structures are intact. IMPRESSION: No acute osseous abn ormality. at 0703 Reported and signed by: Ty Willams M.D. CC: Yisel Rodriguez MD Technologist: LATESHA CHI Trnscrd Date/Time/By: 06/30/2019 (0703) : By: [email or web address] PAGE 1 Jailene d Report FAX: Yisel Rodriguez MD Bernard: St: REG Name: NARENDRAPADMINI [facility] [facility] : 1960 Age/S: 59/F [address] [employer] Unit #: [id number] Loc: [address] [place], [place]: [place] [address] Acct: [id number] Dis Date: Status: REG ER PHONE #: [phone] Exam Date: 06/30/2019701 FAX #: [phone] Reason: wrist injury EXAMS: CPT CODE: [id number] XR WRIST 3 + [place] [id number] < Continued> Orig Print D/T: S: 06/30/2019 (0095) PAGE 2 Signed Report COMPREHENSIVE METABOLIC [id number] 07:02:00* Test Item Value Reference Range Interpretation Comments SODIUM (test code = NA) 139 mmol/l 134.0-147.0 N POTASSIUM (test code = K) 3.1 mmol/L 3.6-5.2 L CHLORIDE (test code = CL) 103 mmol/l 98.0-107.0 N CARBON DIOXIDE (test code = CO2) 27.6 mmol/l 21.0-33.0 N ANION GAP (test code = GAP) 11.5 0-20 N GLUCOSE (test code = GLU) 144 mg/dl 70.0-110.0 H BLOOD UREA NITROGEN (test code = BUN) 20 mg/dl 7.0-18.0 H CREATININE (test code = CREAT) 1.43 mg/dL 0.60-1.30 H GFR NON BLACK (test code = GFRNONBLACK) 39 mL/min 80-90 L GFR BLACK (test code = GFRBLACK) 48 mL/min 97-109 L TOTAL PROTEIN (test code = PROT) 7.8 gm/dL 6.4-8.2 N ALBUMIN (test code = ALB) 3.0 gm/dl 3.2-4.7 L CALCIUM (test code = CA) 9.1 mg/dl 8.0-10.5 N BILIRUBIN TOTAL (test code = BILT) 0.3 mg/dl 0.0-1.0 N SGOT/AST (test code = AST) 21 Units/L 15.0-37.0 N SGPT/ALT (test code = ALT) 22 Units/L 12.0-78.0 N ALKALINE PHOSPHATASE TOTAL (test code = ALKP) 115 Units/L 50.0-136 .0 N [id number] 07:02:00* Test Item Value Reference Range Interpretation Comments TROPONIN-I (test code = TROPI) <0.02 NG/ML 0.00-0.06 N REFERENCE RANGE TROPONIN I HEALTHY INDIVIDUALS: <0.06 ng/mL R/O ISCHEMIA: 0.07 - 0.60 ng/mL CUT-OFF RANGE FOR AMI: 0.60 - 1.5 ng/mL - XR KNEE 3 V [id number] 07:02:00 FAX: Yisel Rodriguez MD Bernard: St: REG Name: PADMINI HUERTA [facility] : [birth year] Age/S: 59/F [address] [facility] [employer] [facility] Unit #: [id number] Loc: [address] [place], [place]: [place] [address] Acct: [id number] Dis Date: Status: REG ER PHONE #: [phone] Exam Date: 06/30/2019 0702 FAX #: [phone] Reason: knee injury EXAMS: CPT CODE: [id number] XR KN[place] [id number] EXAM: - XR KNEE 3 V BI HISTORY: knee injury Location code:C3 COMPARISON: None available time of interpretation. FINDINGS: AP, obliq ue, and lateral view of bilateral knees are provided. There is no acute fr acture or malalignment. Tricompartmental osteophytosis is present with me dial compartment narrowing left greater than right. IMPRESSION: 1. Features of osteoarthritis greatest in the medial left anisha rtment. at 0702 Reported and signed by: Ty Willams M.D. CC: Yisel Rodriguez MD Technologist: LATESHA CHI Trnscrd Date/Time/By: (0702) : By: [email or web address] PAGE 1 Signed R eport FAX: Yisel Rodriguez MD Bernard: St: REG Name: PADMINI MACKEY [facility] : 1960 Age/S: 59/F [address] [facility] Unit #: [id number] Loc: [address] Phys: [place] [address] Acct: [id number] Dis Date: Status: REG ER PHONE #: [phone] Exam Date: 06/30/2019 0702 FAX #: [phone] Reason: knee injury EXAMS: CPT CODE: [id number] XR KN[place] [id number] < Continued> Orig Print D/T: S: 06/30/2019 (0738) PAGE 2 Signed Report - CT ABD PELVIS W/O [id number] 06:56:00 FAX: Yisel Rodriguez MD Bernard: St: REG Name: PADMINI WALTERS [facility] : Age/S: 59/F [address] [facility] Unit: [id number] Loc: [address] Phys: [place] [address] Acct: [id number] Dis Date: Status: REG ER PHONE #: [phone] Exam Date: 06/30/2019 0643 FAX #: [phone] Reason: fall from standing - hip/back and side pain EXAMS: CPT CODE: [id number] CT ABD PELVIS W/O CONT 13068 AFTER HOURS SERVICE ON: 06/30/2019 6:[address] Scan of the Chest Without Contrast Locat ion Code M12 History: chest wall injury Technique: Axial and reconstructed coronal and sagittal scans were performed on a h elical scanner pre IV contrast only. Study is limited secondary to lack o f IV contrast. One or more of the following dose reduction techni ques were used: Automated exposure control, adjustment of the mA and/or kV according to patient size, and/or utilization of iterative reconstruction technique. Findings: Lungs and Pleura: There is no pneumothorax. Diffuse bilateral groundglass parenchymal infiltrates are seen which may be a manifestation of contusion or pneumonitis. There is no pleural effusion. Mediastinum: Heart and mediastinum are within normal limits. Calcification is noted in the thyroid gland. T here is no mediastinal mass or adenopathy. Other: There is n o rib fracture. There is no sternal fracture. Impression: Diffuse bilateral groundglass parenchymal infiltrates which may be consistent with pulmonary contusions or pneumonitis. No sternal fracture. No pneumothorax. PAGE 1 Signed Report (CONT INUED) FAX: Yisel Rodriguez MD Bernard: St: REG--- Na me: PADMINI MACKEY [facility] : Age/S: 59/F [address] [facility] Unit: [id number] Loc: [address] Phys: [place] [address] Acct: [id number] Dis D ate: Status: REG ER PHONE #: Exam Date: 06/30/2019 0643 FAX #: Reason: fall from standing - hip/back and side pain EXAMS: CPT CODE: [id number] CT ABD PELVIS W /O CONT 85270 <Continued> AFTER HOURS SERVICE ON: 06/30/2019 6:[address] Scan of the Abdomen and Pelvis Without Contrast Location Code M12 History: chest wall injury Technique: Axial and reconstructed coronal and sagittal scans were performed on a helical scanner pre oral and IV contrast. Study is limited secondary to lack of oral and IV contrast. Evaluation for laceration is limited without IV contrast. One or more of the following dose reduction techniques were used: Automated exposure control, adjustment of the mA and/or kV according to patient size, and/or utilization of iterative re construction technique. Findings: L IVER: There is no perihepatic free fluid. GALLBLADDER/BILIARY: No signif icant findings. PANCREAS: No significant findings. SPLEEN: Th ere is no perisplenic free fluid. ADRENALS: Left adrenal gland is unrema rkable. There is an 8.2 x 6.3 x 8.7 cm mildly complex cystic lesion in the region of the right adrenal gland versus an exophytic right upper po le renal lesion. The adrenal gland itself is not well visualized. Ther e are peripheral calcification in the wall of the lesion. Follow-up CT is recommended in 6 months. KIDNEYS: No nephrolithiasis or hydro nephrosis. BLADDER: No significant findings. GASTROINTESTINAL: No significant findings. The appendix is not visualized. OTHER: There is no pelvic fracture. Uterus is absent. IMPRESSION: No acute traumatic findings in the abdomen or pelvis. Additional findings above. PAGE 2 Signed Report (CONTINUED) FAX: Yisel Rodriguez MD Bernard: St: REG Name: PADMINI MACKEY [facility] : 1960 Age/S: 59/F [address] [facility] Unit: [id number] Loc: [address] [facility] [place]: [place] [address] Acct: [id number] Dis Date: Status: REG ER PHONE #: [phone] Exam Date: 06/30/2019 0643 FAX #: [phone] Reason: fall from standing - hip/back and side pain EXAMS: CPT CODE: [id number] CT ABD PELVIS W/O CONT 16300 <Continued> at 0656 Reported and signed by: Sebastien Conner M.D. CC: Yisel Rodriguez MD Technologist: PRATIBHA Obrien Dt/Tm: 06/30/2019 (0656) [email or web address] Orig Print D/T: S: 06/30/2019 (9720 PAGE 3 Signed Report - CT CHEST W/O [id number] 06:56:00 FAX: Yisel Rodriguez MD Bernard: St: REG Name: PADMINI WALTERS [facility] : 6 Age/S: 59/F [address] [facility] Unit: [id number] Loc: [address] Phys: [place] [address] Acct: [id number] Dis Date: Status: REG ER PHONE #: [phone] Exam Date: 06/30/2019 0643 FAX #: [phone] Reason: chest wall injury EXAMS: CPT CODE: [id number] CT CHEST W/O CONTRAST 99794 AFTER HOURS SERVICE ON: 06/30/2019 6:[address] Scan of the Chest Without Contrast Locat ion Code M12 History: chest wall injury Technique: Axial and reconstructed coronal and sagittal scans were performed on a h elical scanner pre IV contrast only. Study is limited secondary to lack o f IV contrast. One or more of the following dose reduction techni ques were used: Automated exposure control, adjustment of the mA and/or kV according to patient size, and/or utilization of iterative reconstruction technique. Findings: Lungs and Pleura: There is no pneumothorax. Diffuse bilateral groundglass parenchymal infiltrates are seen which may be a manifestation of contusion or pneumonitis. There is no pleural effusion. Mediastinum: Heart and mediastinum are within normal limits. Calcification is noted in the thyroid gland. T here is no mediastinal mass or adenopathy. Other: There is n o rib fracture. There is no sternal fracture. Impression: Diffuse bilateral groundglass parenchymal infiltrates which may be consistent with pulmonary contusions or pneumonitis. No sternal fracture. No pneumothorax. PAGE 1 Signed Report (CONT INUED) FAX: Yisel Rodriguez MD Bernard: St: REG--- Na me: PADMINI MACKEY [facility] : Age/S: 59/F [address] [facility] Unit: [id number] Loc: [address] [place]: [place] [address] Acct: [id number] Dis D ate: Status: REG ER PHONE #: Exam Date: 06/30/2019 0643 FAX #: [phone] Reason: chest wall injury EXAMS: CPT CODE: [id number] CT CHEST W/O CO NTRAST 14674 <Continued> AFTER HOURS SERVICE ON: 06/30/2019 6:[address] Scan of the Abdomen and Pelvis Without Contrast Location Code M12 History: chest wall injury Technique: Axial and reconstructed coronal and sagittal scans were performed on a helical scanner pre oral and IV contrast. Study is limited secondary to lack of oral and IV contrast. Evaluation for laceration is limited without IV contrast. One or more of the following dose reduction techniques were used: Automated exposure control, adjustment of the mA and/or kV according to patient size, and/or utilization of iterative re construction technique. Findings: L IVER: There is no perihepatic free fluid. GALLBLADDER/BILIARY: No signif icant findings. PANCREAS: No significant findings. SPLEEN: Th ere is no perisplenic free fluid. ADRENALS: Left adrenal gland is unrema rkable. There is an 8.2 x 6.3 x 8.7 cm mildly complex cystic lesion in the region of the right adrenal gland versus an exophytic right upper po le renal lesion. The adrenal gland itself is not well visualized. Ther e are peripheral calcification in the wall of the lesion. Follow-up CT is recommended in 6 months. KIDNEYS: No nephrolithiasis or hydro nephrosis. BLADDER: No significant findings. GASTROINTESTINAL: No significant findings. The appendix is not visualized. OTHER: There is no pelvic fracture. Uterus is absent. IMPRESSION: No acute traumatic findings in the abdomen or pelvis. Additional findings above. PAGE 2 Signed Report (CONTINUED) FAX: Yisel Rodriguez MD Bernard: St: REG Name: PADMINI MACKEY [facility] : 1960 Age/S: 59/F [address] [facility] Unit: [id number] Loc: [address] Phys: [place] [address] Acct: [id number] Dis Date: Status: REG ER PHONE #: [phone] Exam Date: 06/30/2019 0610 FAX #: [phone] Reason: chest wall injury EXAMS: CPT CODE: [id number] CT CHEST W/O CONTRAST 74912 <Continued> at 0656 Reported and signed by: Sebastien Conner M.D. CC: Yisel Rodriguez MD Technologist: PRATIBHA STOVALL Trnscrd Dt/Tm: 06/30/2019 (0656) [email or web address] Orig Print D/T: S: 06/30/2019 (2843 PAGE 3 Signed Report - CT C-SPINE W/O [id number] 06:51:00 FAX: Yisel Rodriguez MD Bernard: EM St: REG Name: PADMINI WALTERS [facility] : 8 Age/S: 59/F [address] [facility] Unit: [id number] Loc: [address] Phys: [place] [address] Acct: [id number] Dis Date: Status: REG ER PHONE #: [phone] Exam Date: 06/30/2019 0643 FAX #: [phone] Reason: neck injury EXAMS: CPT CODE: [id number] CT C-SPINE W/O CONT 68369 DICTATION LOCATION: H48 HISTORY: Female, 59 years of age with neck injury EXAM: CT SCAN OF THE CERVICAL SPINE WITHOUT IV CONTRAST COMPARISON: None TECHNIQUE: Helical axial images were obtained without IV contrast. Axial, sagittal, and coronal reconstructions were performed. One or more of the following dose reduction techniques were used: Automated exp osure control; adjustment of the mA and/or kV according to the patient siz e; and/or use of iterative reconstruction technique. FINDINGS: The re is no acute fracture, posttraumatic subluxation or prevertebral soft ti ssue swelling. No significant central canal or foraminal stenosis. There i s mild diffuse spondylosis and facet joint arthropathy however. Incidental note made of an enlarged multinodular thyroid gland and patchy interstiti al opacities in both lung apices. IMPRESSION: 1. No acut e fracture or subluxation in the cervical spine. 2. Bilateral apical kolby g opacities. at 0651 Reported and signed by: Padmini Olivarez M.D. CC: Yisel Montero as Technologist: PRATIBHA STOVALL Trnnhrd Dt/Tm: 06/30/2019 (0303) [email or web address] Orig Print D/T: S: 06/30/2019 (4016 PAGE 1 Signed Report - CT HEAD/BRAIN W/O [id number] 06:51:00 FAX: Yisel Rodriguez MD Bernard: St: REG Name: PADMINI WALTERS [facility] : 8 Age/S: 59/F [address] [facility] Unit: [id number] Loc: [address] [place], [place] Phys: [place] [address] Acct: [id number] Dis Date: Status: REG ER PHONE #: [phone] Exam Date: 06/30/2019 0643 FAX #: [phone] Reason: head injury EXAMS: CPT CODE: [id number] CT HEAD/BRAIN W/O CONT 14371 DICTATION LOCATION: H48 HISTORY: Female, 59 years of age with head injury EXAM: CT BRAIN WITHOUT CONTRAST COMPARISON: None. TECHNIQUE: Helical axial images were obtained through the brain without IV contrast. Coronal and sagittal reformats were performed. One or more of the follow ing dose reduction techniques were used: Automated exposure control; adjus tment of the mA and/or kV according to the patient size; and/or use of ite rative reconstruction technique. FINDINGS: No significant scalp s oft tissue swelling or hematoma. There is no acute intra-axial or extra-ax ial hemorrhage, mass, mass effect or midline shift. No acute loss of avila/ white junctions. No hydrocephalus. There is no acute calvarial fracture. The sinuses and mastoids are clear. IMPRESSION: No acute calvarial fracture, intracranial hemorrhage, infarct, or mass. at 0651 Reported and si gned by: Padmini Olivarez M.D. CC: Yisel Rodriguez MD Technologist: PRATIBHA STOVALL Trnscrd Dt/Tm: 06/30/2019 (0651) Juno Orig Print D/T: S: 06/30/2019 (7343 PAGE 1 Signed Report CBC W/AUTO DIFF 2019-06-30 06:45:00* Test Item Value Reference Range Interpretation Comments WHITE BLOOD CELL (test code = WBC) 15.8 K/mm3 4.5-11.0 H RED BLOOD CELL (test code = RBC) 3.51 M/mm3 3.80-5.20 L HEMOGLOBIN (test code = HGB) 11.1 gm/dL 12.0-16.0 L HEMATOCRIT (test code = HCT) 33.7 % 36.0-48.0 L MEAN CELL VOLUME (test code = MCV) 96.0 UM3 82.0-99.0 N MEAN CELL HGB (test code = MCH) 31.6 UUG 25.5-32.5 N MEAN CELL HGB CONCETRATION (test code = MCHC) 32.9 gm/dL 29.0-35. 5 N RED CELL DISTRIBUTION WIDTH (test code = RDW) 15.6 % 11.5-15. 0 H RED CELL DISTRIBUTION WIDTH SD (test code = RDW-SD) 53.6 fL 34 .8-50.2 H PLATELET COUNT (test code = PLT) 289 K/mm3 150-400 N MEAN PLATELET VOLUME (test code = MPV) 9.8 fl 7.4-10.4 N NEUTROPHIL % (test code = NT%) 81.2 % 49.0-76.0 H IMMATURE GRANULOCYTE % (test code = IG%) 0.4 % 0.0-0.4 N LYMPHOCYTE % (test code = LY%) 6.3 % 23.0-38.0 L MONOCYTE % (test code = MO%) 11.5 % 1.0-10.0 H EOSINOPHIL % (test code = EO%) 0.4 % 1.0-5.0 L BASOPHIL % (test code = BA%) 0.2 % 0.0-1.0 N NEUTROPHIL # (test code = NT#) 12.8 K/mm3 2.4-6.3 H IMMATURE GRANULOCYTE # (test code = IG#) 0.07 x10 3/uL 0.00-0.07 N LYMPHOCYTE # (test code = LY#) 1.0 K/mm3 1.2-4.0 L MONOCYTE # (test code = MO#) 1.8 K/mm3 0.0-0.6 H EOSINOPHIL # (test code = EO#) 0.1 K/MM3 0.0-0.7 N BASOPHIL # (test code = BA#) 0.0 K/mm3 0.0-0.2 N COMPREHENSIVE METABOLIC [id number] 06:43:00* Test Item Value Reference Range Interpretation Comments SODIUM (test code = NA) 139 mmol/l 134.0-147.0 N POTASSIUM (test code = K) 3.1 mmol/L 3.6-5.2 L CHLORIDE (test code = CL) 103 mmol/l 98.0-107.0 N CARBON DIOXIDE (test code = CO2) 27.6 mmol/l 21.0-33.0 N ANION GAP (test code = GAP) 11.5 0-20 N GLUCOSE (test code = GLU) mg/dl 70.0-110.0 BLOOD UREA NITROGEN (test code = BUN) mg/dl 7.0-18.0 CREATININE (test code = CREAT) mg/dL 0.60-1.30 GFR NON BLACK (test code = GFRNONBLACK) mL/min 80-90 GFR BLACK (test code = GFRBLACK) mL/min 97-109 TOTAL PROTEIN (test code = PROT) gm/dL 6.4-8.2 ALBUMIN (test code = ALB) gm/dl 3.2-4.7 CALCIUM (test code = CA) mg/dl 8.0-10.5 BILIRUBIN TOTAL (test code = BILT) mg/dl 0.0-1.0 SGOT/AST (test code = AST) Units/L 15.0-37.0 SGPT/ALT (test code = ALT) Units/L 12.0-78.0 ALKALINE PHOSPHATASE TOTAL (test code = ALKP) Units/L 50.0-136 .0 [id number] 06:43:00* Test Item Value Reference Range Interpretation Comments TROPONIN-I (test code = TROPI) NG/ML 0.00-0.06
[2020-07-22] MEDS ORDERED: CEFTRIAXONE SOD 1 GM/NS 50 ML 50 ML IV ONE (02:00)
[2020-07-22 02:02] LABS: BASOPHILS % 0.3 % (0.0-1.0); EOSINOPHILS # (AUTO) 0.3 (0.0-0.4); EOSINOPHILS % 1.7 % (0.0-6.0); HEMATOCRIT 32.9 % (34.2-44.1); HEMOGLOBIN 10.9 g/dL (12.0-16.0); LYMPHOCYTES # (AUTO) 1.5 (1.0-3.2); LYMPHOCYTES % 9.7 % (18.0-39.1); MEAN CORPUSCULAR HEMOGLOBIN 33.5 pg (28-32); MEAN CORPUSCULAR HGB CONC 33.1 g/dL (31-35); MEAN CORPUSCULAR VOLUME 101.2 fL (81-99); MONOCYTES # (AUTO) 1.1 (0.2-0.8); MONOCYTES % 7.2 % (4.4-11.3); NEUTROPHILS # (AUTO) 12.4 (2.1-6.9); NEUTROPHILS % 80.5 % (38.7-80.0); PLATELET COUNT 400 x10e3/uL (140-360); RED BLOOD COUNT 3.25 x10e6/uL (3.6-5.1)
[2020-07-22 02:13] LABS: ALBUMIN 3.4 g/dL (3.5-5.0); ANION GAP 20.6 mmol/L (8-16); CALCIUM 9.8 mg/dL (8.4-10.2); CREATININE, SERUM 2.03 mg/dL (0.57-1.11); POTASSIUM 3.6 mmol/L (3.5-5.1)
--- NOTE | 2020-07-22 02:33 | Diagnostic Imaging Report ---
EXAM: Abdomen 1 View INDICATION: ^Y ^abd pain ^[id number] ^0140 COMPARISON: None FINDINGS: Limited by body habitus. Gaseous distention of small bowel loops, mostly in the left abdomen. No evidence of pneumoperitoneum. Large amount of stool within ascending colon. No acute osseous abnormality. Right upper quadrant cholecystectomy clips. Degenerative changes of spine. IMPRESSION: Mild gaseous distention of small bowel loops, could represent postsurgical ileus versus early/partial obstruction. Large amount of stool within ascending colon. Signed by: Dr. Otoniel Martin MD on 07/22/2020 2:30 AM
--- NOTE | 2020-07-22 02:35 | Diagnostic Imaging Report ---
EXAMINATION: CHEST SINGLE (PORTABLE) INDICATION: ^Y ^hypoxia ^[id number] ^0140 COMPARISON: None FINDINGS: AP view TUBES and LINES: None. LUNGS: Limited by low lung volumes and body habitus. Central vascular congestion. Mild bibasilar subsegmental atelectasis. PLEURA: No significant pleural effusion or pneumothorax. HEART AND MEDIASTINUM: The cardiomediastinal silhouette is unremarkable. BONES AND SOFT TISSUES: No acute osseous lesion. Soft tissues are unremarkable. UPPER ABDOMEN: No free air under the diaphragm. IMPRESSION: Central vascular congestion. Mild bibasilar subsegmental atelectasis. Underlying pneumonia cannot be excluded in the appropriate clinical context. Signed by: Dr. Otoniel Martin MD on 07/22/2020 2:32 AM
--- NOTE | 2020-07-22 03:23 | NUR ---
pt up to bathroom. pt states that unable to void p 10minutes. informed. straight cath ordered. straight cath performed using sterile technique. 100cc cloudy light tatyana colored urine return noted. specimen collected and sent to lab. informed.
--- NOTE | 2020-07-22 03:25 | Emergency Department Note ---
History of Present Illnes History of Present Illness Chief Complaint: Abdominal Complaints History of Present Illness This is a 60 year old female arrived to the ED with complaints of right upper quadrant abdominal pain. Patient states she is finding no relief on the pain medications since she was prescribed. . Chief Complaint Comment 60 YO FEMALE AAOX3 PRESENTS TO ED C/O RUQ PAIN THAT RADIATES TO BACK AND UP NECK; PT S/P CHOLECYSTECTOMY AT THIS FACILITY ON 07/16/2020; PT STATES ON T#3 BUT NO RELIEF, +N/-D, STATES TOLERATING PO, PASSING GAS, LAST BM THIS AM; 20 G IV CATH PLACED TO LT AC, LABS COLLECTED, LACTIC, C ULTURES Historian: Patient Arrival Mode: Car Onset (how long ago): day(s) Radiation: Reports non-radiation Severity: mild Timing of current episode: constant Chronicity: new Context: Reports recent surgery Past Medical/Family History Physician Review I have reviewed the patient's past medical and family history. Any updates have been documented here. Past Medical History Recent Fever: No Clinical Suspicion of Infectio: Yes New/Unexplained Change in Ment: No Past Medical History: Hypertension, Diabetes, Anxiety, Depression Other Medical History: RA CHRONIC LEG PAIN NEUROPATHY Past Surgical History: Cholecysctectomy, Appendectomy, Knee Replacement Other Surgery: OVARIAN CYST Social History Smoking Cessation: Current every day smoker Counseling Performed: Yes Alcohol Use: None Any Illegal Drug Use: No Physically hurt or threatened: No Other Any Pre-Existing Lines (PICC,: No Review of Systems Review of Systems Constitutional: Reports no symptoms EENTM: Reports no symptoms Cardiovascular: Reports no symptoms Respiratory: Reports no symptoms Gastrointestinal: Reports as per HPI, Reports abdominal pain Genitourinary: Reports no symptoms Musculoskeletal: Reports no symptoms Integumentary: Reports no symptoms Neurological: Reports no symptoms Psychological: Reports no symptoms Endocrine: Reports no symptoms Hematological/Lymphatic: Reports no symptoms Physical Exam Related Data Allergies: Coded Allergies: ampicillin (Verified Allergy, Intermediate, 07/10/20) UPSET STOMACH erythromycin base (Verified Allergy, Intermediate, 07/10/20) UPSET STOMACH, ITCHING tetracycline (Verified Allergy, Intermediate, 07/10/20) HALLUCINATIONS Triage Vital Signs Vital Signs Date Time Temp Pulse Resp B/P (MAP) Pulse Ox O2 Delivery O2 Flow Rate FiO2 07/22/20 01:09 98.0 85 20 70/41 91 Room Air 07/22/20 01:38 2.0 Vital signs reviewed: Yes Physical Exam CONSTITUTIONAL Constitutional: Present well-developed, Present well-nourished, Present ill appearing HENT HENT: Present normocephalic, Present atraumatic, Present oropharynx cl ear/moist, Present nose normal HENT L/R: Present left ext ear normal, Present right ext ear normal EYES Eyes: Reports PERRL, Reports conjunctivae normal NECK Neck: Present ROM normal PULMONARY Pulmonary: Present effort normal, Present breath sounds normal CARDIOVASCULAR Cardiovascular: Present regular rhythm, Present heart sounds normal, Present capillary refill normal, Present normal rate GASTROINTESTINAL Abdominal: Present soft, Present bowel sounds normal, Present tender GENITOURINARY Genitourinary: Present exam deferred SKIN Skin: Present warm, Present dry MUSCULOSKELETAL Musculoskeletal: Present ROM normal NEUROLOGICAL Neurological: Present alert, Present oriented x 3, Present no gross motor or sensory deficits PSYCHOLOGICAL Psychological: Present mood/affect normal, Present judgement normal Results Laboratory Result Diagram: 07/22/20 0115 07/22/20 0115 Laboratory Laboratory Tests Test 07/22/20 01:15 White Blood Count 15.41 x10e3/uL (4.8-10.8) Red Blood Count 3.25 x10e6/uL (3.6-5.1) Hemoglobin 10.9 g/dL (12.0-16.0) Hematocrit 32.9 % (34.2-44.1) Mean Corpuscular Volume 101.2 fL (81-99) Mean Corpuscular Hemoglobin 33.5 pg (28-32) Mean Corpuscular Hemoglobin Concent 33.1 g/dL (31-35) Red Cell Distribution Width 14.0 % (11.7-14.4) Platelet Count 400 x10e3/uL (140-360) Neutrophils (%) (Auto) 80.5 % (38.7-80.0) Lymphocytes (%) (Auto) 9.7 % (18.0-39.1) Monocytes (%) (Auto) 7.2 % (4.4-11.3) Eosinophils (%) (Auto) 1.7 % (0.0-6.0) Basophils (%) (Auto) 0.3 % (0.0-1.0) Neutrophils # (Auto) 12.4 (2.1-6.9) Lymphocytes # (Auto) 1.5 (1.0-3.2) Monocytes # (Auto) 1.1 (0.2-0.8) Eosinophils # (Auto) 0.3 (0.0-0.4) Basophils # (Auto) 0.0 (0.0-0.1) Absolute Immature Granulocyte (auto 0.10 x10e3/uL (0-0.1) Sodium Level 135 mmol/L (136-145) Potassium Level 3.6 mmol/L (3.5-5.1) Chloride Level 95 mmol/L (98-107) Carbon Dioxide Level 23 mmol/L (22-29) Anion Gap 20.6 mmol/L (8-16) Blood Urea Nitrogen 28 mg/dL (7-26) Creatinine 2.03 mg/dL (0.57-1.11) Estimat Glomerular Filtration Rate 25 ML/MIN (60-) BUN/Creatinine Ratio 14 (6-25) Glucose Level 144 mg/dL (74-118) Lactic Acid Level 1.7 mmol/L (0.5-2.0) Calcium Level 9.8 mg/dL (8.4-10.2) Total Bilirubin 4.0 mg/dL (0.2-1.2) Aspartate Amino Transf (AST/SGOT) 17 IU/L (5-34) Alanine Aminotransferase (ALT/SGPT) 15 IU/L (0-55) Alkaline Phosphatase 151 IU/L (40-150) Total Protein 6.7 g/dL (6.5-8.1) Albumin 3.4 g/dL (3.5-5.0) Globulin 3.3 g/dL (2.3-3.5) Albumin/Globulin Ratio 1.0 (0.8-2.0) Lipase 11 U/L (8-78) Lab results reviewed: Yes Imaging Imaging results reviewed: Yes Impressions IMPRESSION: Bibasilar opacities could be due to atelectasis or aspiration. Additionally there are faint groundglass opacities seen in the included lungs likely inflammatory. Small volume ascites in abdomen and pelvis. 8.0 cm cyst with peripheral calcification arising from the upper pole of the right kidney. Fat containing para-umbilical hernia with 2.0 cm aperture and 6.9 cm hernia sac. Critical Care Time Total Critical Care Time (min): 65 Critical care time exclusive o: separately billable procedures Critcal care necessary due to: sepsis Assessment & Plan Medical Decision Making MDM 60 yo F arrived to the ED with post op fever, hypotension and tachycardia Concerns of sepsis noted at 0130 SIRS met on arrival, elevated WBC count Organ dysfunction noted with elevated Cr. Blood cultures, lactic acid drawn broad spectrum antibiotics given in the form of cipro, flagyl and ceftriaxone Initial lactic acid negative, no indications for repeat Dr. Kwan Cortes. 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 Will evaluate patient Assessment & Plan Final Impression: (1) Ileus following gastrointestinal surgery Depart Disposition: ADMITTED Last Vital Signs Date Time Temp Pulse Resp B/P (MAP) Pulse Ox O2 Delivery O2 Flow Rate FiO2 07/22/20 02:46 76 19 98/63 97 Nasal Cannula 2.0 07/22/20 01:09 98.0 Home Meds Active Scripts Tramadol Hcl* (ULTRAM 50MG*) 50 Mg Tab, 50 MG PO Q6H PRN for pain, #20 TAB Prov:ANTWAN ZUÑIGA MD 07/26/20 Clindamycin Hcl (CLINDAMYCIN HCL) 150 Mg Capsule, 300 MG PO Q8H, #15 Prov:ANTWAN ZUÑIGA MD 07/26/20 Ciprofloxacin Hcl (CIPRO) 500 Mg Tablet, 500 MG PO Q12H, #10 TAB Prov:ANTWAN ZUÑIGA MD 07/26/20 Ondansetron Hcl* (ZOFRAN*) 4 Mg Tablet, 4 MG PO Q4HR PRN for nausea/vomiting, #30 Prov:ANTWAN ZUÑIGA MD 07/26/20 Nifedipine (NIFEDIPINE ER) 30 Mg Tab.er.24, 30 MG PO DAILY for 15 Days Prov:ANTWAN ZUÑIGA MD 07/26/20 Metoprolol Tartrate (LOPRESSOR) 25 Mg Tab, 25 MG PO Q12H for 15 Days, TAB Prov:ANTWAN ZUÑIGA MD 07/26/20 Reported Medications Loratadine/Pseudoephedrine (LORATADINE-D 24HR TAB) 1 Each Tab.er.24h, PO DAILY 07/10/20 Alendronate Sodium (ALENDRONATE SODIUM) 35 Mg Tablet, PO WEEKLY 07/10/20 Abatacept (ORENCIA) 125 Mg/1 Ml Disp.syrin, SC WEEKLY 07/10/20 Venlafaxine Hcl* (EFFEXOR XR 37.5MG CAPCR*) 37.5 Mg Capcr, 150 MG PO DAILY 07/10/20 Trazodone Hcl (TRAZODONE HCL) 50 Mg Tablet, 100 MG PO DAILY, #30 TAB 07/10/20 Sumatriptan (IMITREX) 20 Mg Upson, PO DAILY 07/10/20 Mirtazapine (MIRTAZAPINE) 15 Mg Tab, 15 MG PO DAILY, TAB 07/10/20 Metformin Hcl (METFORMIN HCL ER) 500 Mg Tab.er.24, 500 MG PO DAILY, #60 TAB 07/10/20 Levothyroxine Sodium (LEVOTHYROXINE SODIUM) 25 Mcg Tablet, PO DAILY 07/10/20 Gabapentin (GABAPENTIN) 400 Mg Capsule, 800 MG PO DAILY, #30 CAP 07/10/20 [Folic Acid] No Conflict Check, 1 MG PO DAILY 07/10/20 Azathioprine (IMURAN) 50 Mg Tablet, PO DAILY 07/10/20 Atorvastatin Calcium* (LIPITOR*) 10 Mg Tablet, 40 MG PO HS, TAB 07/10/20 Discontinued Reported Medications Amlodipine Besylate (AMLODIPINE BESYLATE) 10 Mg Tablet, 10 MG PO DAILY, #30 TAB 07/10/20 Lisinopril (LISINOPRIL) 10 Mg Tablet, 10 MG PO DAILY, #30 TAB 07/10/20 Medications in the ED [facility] ; Start 07/22/20 at 01:23; Stop 07/22/20 at 01:17; Status DC Ciprofloxacin Lactate 200 ml @ 200 mls/hr NOW STAT IV ; Start 07/22/20 at 01:15; Stop 07/22/20 at 01:50; Status DC Metronidazole/ Sodium Chloride 100 ml @ 100 mls/hr NOW STAT IV ; Start 07/22/20 at 01:15; Stop 07/22/20 at 01:50; Status DC Sodium Chloride 1,000 ml @ 0 mls/hr Q0M STAT IV Last administered on 07/22/20at 01:16; Admin Dose 999 MLS/HR; Start 07/22/20 at 01:21; Stop 07/22/20 at 01:23; Status DC Ceftriaxone Sodium 50 ml @ 100 mls/hr ONCE ONCE IV Last administered on 07/22/20at 02:03; Admin Dose 100 MLS/HR; Start 07/22/20 at 02:00; Stop 07/22/20 at 02:29; Status DC Sodium Chloride 1,000 ml @ 250 mls/hr Q4H STAT IV Last administered on 07/22/20at 02:42; Admin Dose 250 MLS/HR; Start 07/22/20 at 02:34; Stop 07/22/20 at 06:33 SANDER BATISTA, Jul 22, 2020 03:26
[2020-07-22 03:52] LABS: CLARITY,URINE CLOUDY (CLEAR); COLOR,URINE AMBER (YELLOW)
[2020-07-22 03:53] LABS: BILIRUBIN,URINE MODERATE (NEGATIVE); KETONES,URINE TRACE (NEGATIVE); LEUKOCYTE ESTERASE ,URINE NEGATIVE (NEGATIVE); NITRITE,URINE NEGATIVE (NEGATIVE); PROTEIN,URINE DIPSTICK TRACE (NEGATIVE); URINE UROBILINOGEN 4 mg/dL (0.2 - 1)
[2020-07-22 04:03] LABS: BACTERIA,URINE MANY /HPF; EPITHELIAL CELLS,URINE FEW /LPF
[2020-07-22 04:04] LABS: AMORPHOUS SEDIMENT,URINE MANY (FEW)
--- OUTSIDE RECORDS SUMMARY | 2020-07-22 05:50 | XMS REPORT | Continuity of Care Document ---
Author Author [facility] t Organization [facility] Address [address] [place] [address] Phone Unavailable Care Team Providers Care Manager Card Name Role Phone Elian BATISTA Attphyelian Unavailable Payers Payer Name Policy Type Policy Number Effective Date Expiration Date S ource Problems This patient has no known problems. Allergies, Adverse Reactions, Alerts Allergy Name Allergy Type Status Severity Reaction(s) Onset Date Inacti ve Date Treating Clinician Comments Source Penicillins DA Active DE 2019-11-21 00:00:00 [facility] ampicillin DA Active SV 2019-11-21 00:00:00 [facility] tetracycline DA Active DE 2019-11-21 00:00:00 [facility] azithromycin DA Active MO 2019-11-21 00:00:00 [facility] Penicillins DA Active DE 2019-09-26 00:00:00 [facility] ampicillin DA Active SV 2019-09-26 00:00:00 [facility] tetracycline DA Active DE 2019-09-26 00:00:00 [facility] azithromycin DA Active MO 2019-07-01 00:00:00 [facility] Penicillins DA Active DE 2019-06-30 00:00:00 [facility] ampicillin DA Active SV 2019-06-30 00:00:00 [facility] tetracycline DA Active DE 2019-06-30 00:00:00 [facility] PCN DA Active DE 2019-06-30 00:00:00 [facility] Medications This patient has no known medications. Procedures This patient has no known procedures. Results Test Description Test Time Test Comments Results Result Comments Source CHEST SINGLE (PORTABLE) 2020-07-22 02:30:00 [place] [address] Patient Name: PADMINI MACKEY MR #: [id number] : 1960 Age/Sex: 60/F Req #: [id number] Adm Physician: Ordered by: SANDER BATISTA DO Report #: [id number] Location: ER Room/Bed: Procedure: [id number] DX/CHEST SINGLE (PORTABLE) Exam Date: 07/22/20 Exam Time: 139 REPORT STATUS: Signed EXAMINATION: CHEST SINGLE (PORTABLE) INDICATION: Y hypoxia 20200722 COMPARISON: None FINDINGS: AP view TUBES and LINES: None. LUNGS: Limited by low lung volumes and body habitus. Central vascular congestion. Mild bibasilar subsegmental atelectasis. PLEURA: No significant pleural effusion or pneumothorax. HEART AND MEDIASTINUM: The cardiomediastinal silhouette is unremarkable. BONES AND SOFT TISSUES: No acute osseous lesion. Soft tissues are unremarkable. UPPER ABDOMEN: No free air under the diaphragm. IMPRESSION: Central vascular congestion. Mild bibasilar subsegmental atelectasis. Underlying pneumonia cannot be excluded in the appropriate clinical context. Signed by: Dr. Maikel Lema MD on 07/22/2020 2:32 AM Dictated By: MAIKEL LEMA MD 1 Transcribed By: LENY on 07/22/20231 COPY TO: SANDER BATISTA DO ABDOMEN-1VIEW (KUB) 2020-07-22 02:26:[facility] [place] [place] [address] [facility] Name: PADMINI MACKEY MR #: [id number] : 1960 Age/Sex: 60/F Req #: [id number] Adm Physician: Ordered by: SANDER BATISTA DO Report #: [id number] Location: ER Room/Bed: Procedure: [id number] DX/ABDOMEN-1VIEW (KUB) Exam Date: 07/22/20 Exam Time: 139 REPORT STATUS: Signed EXAM: Abdomen 1 View INDICATION: Y abd pain 20200722 COMPARISON: None FINDINGS: Limited by body habitus. Gaseous distention of small bowel loops, mostly in the left abdomen. No evidence of pneumoperitoneum. Large amount of stool within ascending colon. No acute osseous abnormality. Right upper quadrant cholecystectomy clips. Degenerative changes of spine. IMPRESSION: Mild gaseous distention of small bowel loops, could represent postsurgical ileus versus early/partial obstruction. Large amount of stool within ascending colon. Signed by: Dr. Maikel Lema MD on 07/22/2020 2:30 AM Dictated By: MAIKEL LEMA MD 9 Transcribed By: LENY on 07/22/20229 COPY TO: SANDER BATISTA DO DRUGS OF ABUSE SCREEN 2019-12-03 11:11:00 Test Item URN COCAINE (test [...] 300 ng/mL Specimen comments: Clean CatchBASIC METABOLIC [id number] 11:07:00* Test Item Value Reference Range Interpretation [...] 9.1 mg/dl 8.0-10.5 N HEPATIC FUNCTION PANEL [id number] 11:07:00* Test Item Value Reference Range Interpretation [...] 88 Units/L 50.0-136 .0 N B-TYPE NATRIURETIC [id number] 11:07:00* Test Item Value Reference Range Interpretation Comments B-TYPE NATRIURETIC PEPTIDE (test code = BNP) 43.8 PG/ML 5-100 N [id number] 11:07:00* Test Item Value Reference Range Interpretation Comments TROPONIN-I (test code = TROPI) <0.02 NG/ML 0.00-0.06 N REFERENCE RANGE TROPONIN I HEALTHY INDIVIDUALS: <0.06 ng/mL R/O ISCHEMIA: 0.07 - 0.60 ng/mL CUT-OFF RANGE FOR AMI: 0.60 - 1.5 ng/mL URINALYSIS [id number] 11:05:00* Test Item Value Reference Range Interpretation [...] BACU) FEW NONE Specimen comments: Clean CatchURINALYSIS [id number] 11:02:00* Test Item Value Reference Range Interpretation [...] BACU) NONE Specimen comments: Clean CatchBASIC METABOLIC [id number] 10:53:00* Test Item Value Reference Range Interpretation [...] 9.1 mg/dl 8.0-10.5 N HEPATIC FUNCTION PANEL [id number] 10:53:00* Test Item Value Reference Range Interpretation [...] 88 Units/L 50.0-136 .0 N B-TYPE NATRIURETIC [id number] 10:53:00* Test Item Value Reference Range Interpretation Comments B-TYPE NATRIURETIC PEPTIDE (test code = BNP) PG/ML 5-100 [id number] 10:53:00* Test Item Value Reference Range Interpretation Comments TROPONIN-I (test code = TROPI) <0.02 NG/ML 0.00-0.06 N REFERENCE RANGE TROPONIN I HEALTHY INDIVIDUALS: <0.06 ng/mL R/O ISCHEMIA: 0.07 - 0.60 ng/mL CUT-OFF RANGE FOR AMI: 0.60 - 1.5 ng/mL BASIC METABOLIC [id number] 10:41:00* Test Item Value Reference Range Interpretation [...] = CA) mg/dl 8.0-10.5 HEPATIC FUNCTION PANEL [id number] 10:41:00* Test Item Value Reference Range Interpretation [...] = ALKP) Units/L 50.0-136 .0 B-TYPE NATRIURETIC [id number] 10:41:00* Test Item Value Reference Range Interpretation Comments B-TYPE NATRIURETIC PEPTIDE (test code = BNP) PG/ML 5-100 [id number] 10:41:00* Test Item Value Reference Range Interpretation Comments TROPONIN-I (test code = TROPI) NG/ML 0.00-0.06 PROTHROMBIN [id number] 10:33:00* Test Item Value Reference Range Interpretation [...] 3.5 Is patient on anticoagulants? NTHROMBOPLASTIN TIME [id number] 10:33:00* Test Item Value Reference Range Interpretation Comments THROMBOPLASTIN TIME PARTIAL (test code = PTT) 27.10 SECONDS 25.86-3 6.07 [facility] Therapeutic Range - APTT of 55.8-85.4 secondscorrelates with plasma heparin concentration of 0.2-0.4 u/mL New range effective - 01/11/2017 Is patient on anticoagulants? NCBC W/AUTO [id number] 10:25:00* Test Item Value Reference Range Interpretation [...] K/mm3 0.0-0.2 N - XR CHEST 1 [id number] 09:52:00 FAX: Macie Cota [phone] [facility]: St: PRE FAX: Maia Gant MD [phone] Name: PADMINI MACKEY [facility] : 1960 Age/S: 59/F [address] [facility] Unit #: [id number] Loc: E.[place], [place]: [place] [address] Acct: [id number] Dis Date: Status: PRE ER PHONE #: [phone] Exam Date: 12/03/2019 0951 FAX #: [phone] Reason: SOB EXAMS: CPT CODE: [id number] XR CHEST 1 V 29346 LOCATION: T18 EXAM: CHEST 1 VIEW INDICATION: SOB COMPARISON: Chest x-ray November 21, 2019 TECHNIQUE: AP chest radiograph. FINDINGS: Lungs are clear bilaterally without effusion. Heart is normal in size. Bones and peripheral soft tissues are unchanged. IMPRESSION: Lungs are clear. No acute abnormality. at 0918 Reported and signed by: Mahamed Tsang M.D. CC: Macie Landaverde MD; Maia Gant MD Technologist: JULIA FORTUNE Trnscrd Date/Time/By: 12/03/2019 (2789) : By: MirtaJP19 PAGE 1 Signed Report FAX: Macie Cota [phone] [facility]: St: PRE FAX: Maia Gant MD Name: NARENDRAHASEEBPADMINI Conchis [facility] : 1960 Age/S: 59/F [address] [facility] Unit #: [id number] Loc: [facility] [place]: [place] [address] Acct: [id number] Dis Date: Status: PRE ER PHONE #: [phone] Exam Date: 12/03/2019 0951 FAX #: [phone] Reason: SOB EXAMS: CPT CODE: [id number] XR CHEST 1 V 30073 <Continued> Orig Print D/T: S: 12/03/2019 (9756) PAGE 2 Signed Report PROCALCITONIN (PCT)2019-11-21 21:09:00* [...] concentrations <2 ng/mL are obtained. C REACTIVE [id number] 20:53:00* Test Item Value Reference Range Interpretation Comments C REACTIVE PROTEIN (test code = CRP) 15.3 MG/L 0.0-2.9 H - CT ABD PELVIS [id number] 18:23:00 Name: NARENDRAMI CLOORADOJeffy Balderrama [facility] : 1960 Age/S: 59 / F [address] [place] [address] Unit #: [id number] Loc: [place] [address] Phys: Irma Keys NP Acct: [id number] Dis Date: Status: REG PHONE #: [phone] Exam Date: 11/21/2019 1748 FAX #: [phone] Reason: R upper abd pain EXAMS: CPT CODE: [id number] CT ABD PELVIS W/CONT 40055 Clinical Indication: R upper abd pain Comparison: [...] 1 Signed Report (CONTINUED) Name: PADMINI MACKEY [facility] : 1960 Age/S: 59 / F [address] [place] [address] Blvd Unit #: [id number] Loc: [place] [address] Phys: Irma Keys NP Acct: [id number] Dis Date: Status: REG ER PHONE #: [phone] Exam Date: 11/21/2019 1744 FAX #: [phone] Reason: R upper abd pain EXAMS: CPT CODE: [id number] CT ABD PELVIS W/CONT 67973 <Continued> caliber without any masses. APPENDIX: The [...] adrenal gland, stable. 3. Hepatomegaly. 4. Hysterectomy. JAMES: LANVU-H at 1823 Reported and signed by: Jaret Simmons M.D. CC: Macie Landaverde MD; Irma Keys NP Technologist:Pratibha Stovall RT(R) CTDI: DLP: Trnscb Date/Time: 11/21/2019 (1822) t.SDR.LNV Orig Print D/T: S: 11/21/2019 (1825) PAGE 2 Signed Report - US ABDOMEN [id number] 16:57:00 Name: PADMINI MACKEY [facility] [place] : 1960 Age/S: 59 / F [address] [place] [address] Unit #: [id number] Loc: [facility] [place] [address] Phys: Irma Keys NP Acct: [id number] Dis Date: Status: REG ER PHONE #: [phone] Exam Date: 11/21/2019 1649 FAX #: [phone] Reason: Abdominal Pain EXAMS: CPT CODE: [id number] US ABDOMEN LTD 18353 PROCEDURE: RIGHT UPPER QUADRANT ULTRASOUND INDICATION: Abdominal [...] upper quadrant, favor renal origin SL: CL [id number] Electronically Signed by Vipin Aguilera on at 1657 Reported and signed by: Pili Kendrick PAGE 1 Signed Report (CONTINUE D) Name: PADMINI MACKEY [facility] Tangela Urias : 1960 Age/S: 59 / F [address] [place] [address] Blvd Unit #: [id number] Loc: [place] [address] Phys: Jeffy Keys RFP WRITER Acct: [id number] Dis Date: Status: REG ER PHONE #: [phone] Exam Date: 11/21/2019 1649 FAX #: Reason: Abdominal Pain EXAMS: CPT CODE: [id number] ABDOMEN LTD 64665 <Continued> CC: Irma Kesy NP Technologist: Deirdre Hathaway RDMS (Jeffy) Trnscb Date/Time: 11/21/2019 (1656) t.ERENDIRAR.ETG Orig Print D/T: S: 11/21/2019 (1700) Probe: PAGE 2 Signed Report HEPATIC FUNCTION [id number] 14:31:00* Test Item Value Reference Range Interpretation [...] code = ALKP) 105 IUnit/L 20-125 N [id number] 14:31:00* Test Item Value Reference Range Interpretation Comments LIPASE (test code = LIP) 115 IUnit/L 73-393 N - XR CHEST 2 [id number] 14:21:00 FAX: Irma Keys NP [phone] [facility]: St: PRE Name: PADMINI HUERTA [facility] : [birth year] Age/S: 59/F [address] [place] [address] Unit #: [id number] Loc: [place] [address] Phys: Irma Keys NP Acct: [id number] Dis Date: Status: PRE ER PHONE #: [phone] Exam Date: 11/21/20191416 FAX #: [phone] Reason: RUQ abd pain EXAMS: CPT CODE: [id number] XR CHEST 2 V 60577 Two-view chest: HIST ORY: Right upper quadrant abdominal pain. FINDINGS: Mild interstit ial prominence in each lung base is stable from 08/17/2019 likely mild fibr otic change. No new pulmonary infiltrate or pleural fluid collection is f ound. The heart and mediastinal contours are stable. Note is made of lakshmi gino kyphosis. IMPRESSION: Stable exam without definite acute fin ding SL: [id number] Electro nically Signed by Vipin Aguilera on 11/21/2019 at 1421 Reported and signed by: Chase Aguilera M.D. CC: Irma martinez NP Technologist: Marivel Mata(Marivel) Trnscrd Date/Time/By: 11/21/2019 (142) : B y: MirtaETG Orig Print D/T: S: 11/21/2019 (7391) PAGE 1 Signed Report CBC W/AUTO [id number] 14:10:00* Test Item Value Reference Range Interpretation [...] MDIFF) NO UA RFLX MICR CULT IF [id number] 14:09:00* Test Item Value Reference Range Interpretation [...] Suprapubic Pain Flank PainSpecimen Description: CLEAN CATCHTROPONIN-I [id number] 14:08:00* Test Item Value Reference Range Interpretation Comments TROPONIN-I RAPID (test code = TROPIRAP) 0.00 ng/mL 0.00-0.08 N Performed by certified marking machine operator at [facility] Negative: <= 0.08 Positive: >= 0.09An elevated troponin value alone is not sufficient todiagnose a myocardial infarction. Rather, the patient sclinical presentation (history, physical exam) and ECGshould be used in conjunction with troponin in thediagnostic evaluation of suspected myocardial infarction. Aserial sampling protocol is recommended to facilitate the identification of temporal changes in troponin levels characteristic of DE. LACTIC ACID [id number] 14:01:00* Test Item Value Reference Range Interpretation Comments LACTIC ACID POC (test code = LACTP) 0.7 MMOL/L 0.90-1.70 L Performed by certified marking machine operator at [facility] CHEMISTRY 8 [id number] 14:01:00* Test Item Value Reference Range Interpretation [...] code = GFRBED) 78 ML/MIN CHEMISTRY 8 [id number] 14:01:00* Test Item Value Reference Range Interpretation Comments ISTAT-SODIUM (test code = NAP) 137 MMOL/L 134-147 N ISTAT-POTASSIUM (test code = KP) 4.2 MMOL/L 3.4-5.0 N ISTAT-CHLORIDE (test code = CLP) 103 MMOL/L 100-108 N Performed by certified marking machine operator at [facility] ISTAT CARBON DIOXIDE (test code = ISTAT-CO2) 25.0 mmol/L 21-33 N ISTAT CALCIUM IONIZED (test code = ISTAT-CAMILLE) 1.22 MG/DL 1.12-1.3 2 N ISTAT-GLUCOSE (test code = GLUP) 112 MG/DL 70-110 H ISTAT-BUN (test code = BUNP) 11 MG/DL 7-18 N BEDSIDE CREATININE (test code = CREATBED) 0.8 MG/DL 0.6-1.3 N GLOMERULAR FILTRATION RATE POC (test code = GFRBED) 78 ML/MIN BRONCHIAL [id number] 12:13:00 RUN DATE: 11/07/19 [facility] - Lab PAGE 1 RUN TIME: 1213 Specimen Inqui ry RUN USER: INTERFACE PATIENT: PADMINI MACKEY ACCT #: [id number] LOC: [place] U #: [id number] AGE/SX: 59/F ROOM: RE11/04/19REG DR: Scar Stephen MD : [birth year] BED: DIS: STATUS: [facility] TLOC: SPEC #: [id number] RECD: 11/04/19 STATUS: FELISA REQ #: [id number] SHAUN: 11/04/19- SUBM DR: Scar Stephen MD ENTERED: 11/04/19 SP TYPE: BRONCH [place] OTHR DR: Kimberley Bonilla benson or Family Physician Self ReferredORDERED: CYTOSPIN 64554, GM LEVEL 4, REQUEST COPIES TO: No Primary or Family Physician Self Referred Scar Stephen MD [address] [place] [address] PROCEDURES: CYTOSPIN 97821 (11/07/19-1116) GM LEVEL 4 (11/07/19-1116) REQUEST (11/04/19-1342) TISSUES: BRONCHUS, NOS - BRONCHIAL WASH FINAL DIAGNOSIS BRONCHIAL WASHINGS, CY TOSPIN AND CELL BLOCK PREPARATIONS: NEGATIVE OF MALIGNANT CELLS. FEW SURESH IGN BRONCHIAL EPITHELIAL CELLS IN A BACKGROUND OF MIXED INFLAMMATORY EXUD ATE AND MUCOUS. CPT CODE: 68784, 24248 MACROSCOPIC Clinica l history: Pneumonia Specimen designated "bronchial washings" consists of 25 ml of viscous transparent fluidfrom which two cytospins and a cell block preparatio n are made. MICROSCOPIC SEE DIAGNOSIS Signed SIGNATURE ON FILE Sharon Churchill 11/07/19 1213 END OF REPORT COMPREHENSIVE METABOLIC [id number] 06:36:00* Test Item Value Reference Range Interpretation [...] 126 Units/L 50.0-136 .0 N THROMBOPLASTIN TIME [id number] 06:35:00* Test Item Value Reference Range Interpretation Comments THROMBOPLASTIN TIME PARTIAL (test code = PTT) 32.90 SECONDS 25.86-3 6.07 [facility] Therapeutic Range - APTT of 55.8-85.4 secondscorrelates with plasma heparin concentration of 0.2-0.4 u/mL New range effective - 01/11/2017 PROTHROMBIN [id number] 06:34:00* Test Item Value Reference Range Interpretation [...] ANTIPHOSPHOLIPID ANTIBODIES 2.5 - 3.5 COMPREHENSIVE METABOLIC [id number] 06:30:00* Test Item Value Reference Range Interpretation [...] = ALKP) Units/L 50.0-136 .0 CBC W/AUTO [id number] 06:24:00* Test Item Value Reference Range Interpretation [...] K/mm3 0.0-0.2 N - CT HEAD/BRAIN W/O [id number] 06:13:00 FAX: Maia Gant MD [phone] [facility]: St: PRE Name: PADMINI WALTERS [facility] : [birth year] Age/S: 59/F [address] [facility] Unit: [id number] Loc: [address] Phys: [place] [address] Acct: [id number] Dis Date: Status: PRE ER PHONE #: [phone] Exam Date: 10/31/2019605 FAX #: [phone] Reason: RIGHT-SIDED KISER X 3 D EXAMS: CPT CODE: [id number] CT HEAD/BRAIN W/O CONT 56035 EXAM: - CT HEAD/BRAIN W/O CONT HISTORY: [...] M.D. CC: Maia Gant MD Technologist: RADAMES Obrien Dt/Tm: 10/31/2019 (0613) KeiM4 Orig Print D/T: S: 10/31/2019 (4716 PAGE 1 Signed Report [id number] 11:11:00* Test Item Value Reference Range Interpretation Comments GLUBED (test code = GLUBED) 90 mg/dL 70-110 N [id number] 07:29:00* Test Item Value Reference Range Interpretation Comments GLUBED (test code = GLUBED) 117 mg/dL 70-110 H [id number] 21:06:00* Test Item Value Reference Range Interpretation Comments GLUBED (test code = GLUBED) 90 mg/dL 70-110 N [id number] 16:06:00* Test Item Value Reference Range Interpretation Comments GLUBED (test code = GLUBED) 96 mg/dL 70-110 N [id number] 07:49:00* Test Item Value Reference Range Interpretation Comments GLUBED (test code = GLUBED) 105 mg/dL 70-110 N [id number] 12:06:00* Test Item Value Reference Range Interpretation Comments GLUBED (test code = GLUBED) 94 mg/dL 70-110 N [id number] 07:01:00* Test Item Value Reference Range Interpretation Comments GLUBED (test code = GLUBED) 85 mg/dL 70-110 N BASIC METABOLIC [id number] 06:07:00* Test Item Value Reference Range Interpretation [...] CA) 9.0 mg/dl 8.0-10.5 N CBC W/AUTO [id number] 05:41:00* Test Item Value Reference Range Interpretation [...] code = BA#) 0.0 K/mm3 0.0-0.2 N [id number] 21:24:00* Test Item Value Reference Range Interpretation Comments GLUBED (test code = GLUBED) 82 mg/dL 70-110 N URIC [id number] 16:50:00* Test Item Value Reference Range Interpretation Comments URIC ACID (test code = URIC) 4.3 mg/dl 2.6-7.2 N [id number] 15:21:00* Test Item Value Reference Range Interpretation Comments GLUBED (test code = GLUBED) 84 mg/dL 70-110 N - NM BONE 3 [id number] 14:01:00 FAX: Ken Esquivel [phone] [facility]: St: [facility] FAX: Mehnaz Galindo MD [phone] Name: PADMINI MACKEY [facility] : 1960 Age/S: 59/F [address] [facility] Unit #: [id number] Loc: [address] [place] [address] [place]: [place] [address] Acct: [id number] Dis Date: Status: ADM IN PHONE #: [phone] Exam Date: 09/26/2019 1343 FAX #: [phone] Reason: OM LEFT FOOT EXAMS: CPT CODE: [id number] NM BONE 3 PHASE 21920 REASON FOR EXAM: Osteomyelitis of the left [...] Tarsal bone activity likely degenerative, mild. Location: [facility] at 1401 Reported and signed by: Sukhdev Foreman M.D. CC: Ken Sánchez MD; Mehnaz Prater MD Technologist: MAHI VEE Trnscrd Date/Time/By: 9 (1401) : By: [facility] PAGE 1 Signed Report FAX: Ken Esquivel [phone] [facility]: St: [facility] FAX: Mehnaz Galindo MD [phone] --------- Name: PADMINI MACKEY [facility] : [birth year] Age/S: 59/F [address] [facility] Unit #: [id number] Loc: [address] Phys: [place] [address] Acct: [id number] Dis Date: Status: ADM IN PHONE #: [phone] Exam Date: 09/26/2019 1343 FAX #: [phone] Reason: OM LEFT FOOT EXAMS: CPT CODE: [id number] NM BONE 3 PHASE 61516 <Continued> Orig Print D/T: S: 09/26/2019 (9419) PAGE 2 Signed Report [id number] 11:09:00* Test Item Value Reference Range Interpretation Comments GLUBED (test code = GLUBED) 110 mg/dL 70-110 N COMPREHENSIVE METABOLIC [id number] 07:58:00* Test Item Value Reference Range Interpretation [...] = ALKP) 81 Units/L 50.0-136 .0 N [id number] 07:58:00* Test Item Value Reference Range Interpretation Comments MAGNESIUM (test code = MAG) 1.7 mg/dl 1.8-2.4 L THYROID STIMULATING [id number] 07:58:00* Test Item Value Reference Range Interpretation Comments THYROID STIMULATING HORMONE (test code = TSH) 0.44 IU/ML 0.47-5.0 1 L Result is in International Units/milliliter [id number] 07:18:00* Test Item Value Reference Range Interpretation Comments HGBA1C% (test code = HGBA1C%) 5.4 %A1C 4.8-6.0 N ESTIMATED AVERAGE GLUCOSE (test code = EAG) 108 MG/DL CBC W/AUTO [id number] 06:38:00* Test Item Value Reference Range Interpretation [...] code = BA#) 0.0 K/mm3 0.0-0.2 N [id number] 06:37:00* Test Item Value Reference Range Interpretation Comments GLUBED (test code = GLUBED) 105 mg/dL 70-110 N [id number] 21:30:00* Test Item Value Reference Range Interpretation Comments GLUBED (test code = GLUBED) 106 mg/dL 70-110 N [id number] 16:17:00* Test Item Value Reference Range Interpretation Comments GLUBED (test code = GLUBED) 97 mg/dL 70-110 N [id number] 11:15:00* Test Item Value Reference Range Interpretation Comments GLUBED (test code = GLUBED) 104 mg/dL 70-110 N [id number] 09:26:00* Test Item Value Reference Range Interpretation Comments GLUBED (test code = GLUBED) 143 mg/dL 70-110 H [id number] 21:57:00* Test Item Value Reference Range Interpretation Comments GLUBED (test code = GLUBED) 123 mg/dL 70-110 H [id number] 15:17:00* Test Item Value Reference Range Interpretation Comments GLUBED (test code = GLUBED) 159 mg/dL 70-110 H [id number] 11:51:00* Test Item Value Reference Range Interpretation Comments GLUBED (test code = GLUBED) 83 mg/dL 70-110 N LACTIC [id number] 10:35:00* Test Item Value Reference Range Interpretation Comments LACTIC ACID (test code = LACT) 1.3 MMOL/L 0.4-2.0 N PROTHROMBIN [id number] 10:35:00* Test Item Value Reference Range Interpretation [...] ANTIPHOSPHOLIPID ANTIBODIES 2.5 - 3.5 COMPREHENSIVE METABOLIC [id number] 10:24:00* Test Item Value Reference Range Interpretation [...] 88 Units/L 50.0-136 .0 N COMPREHENSIVE METABOLIC [id number] 10:18:00* Test Item Value Reference Range Interpretation [...] .0 - XR FOOT 3 + V [id number] 10:12:00 FAX: Mandy Rivera [phone] [facility]: St: REG FAX: Bhakti Penaloza MD [phone] Name: PADMINI MACKEY [facility] : 1960 Age/S: 59/F [address] [facility] Unit #: [id number] Loc: [address] [place], [place]: [place] [address] Acct: [id number] Dis Date: Status: REG ER PHONE #: [phone] Exam Date: 09/24/2019 1011 FAX #: [phone] Reason: swelling EXAMS: CPT CODE: [id number] XR FOOT 3 + [place] [address] EXAM: XR FOOT 3 VIEWS, LEFT INDICATION: [...] by: Edith Dover M.D. CC: Mandy Rivera RFP WRITER; Bhakti Penaloza MD Technologist: FLAVIO FORTUNE Trnscrd Date/Time/By: 09/24/2019 (1012) : By: MirtaMD16 PAGE 1 Signed Report FAX: Mandy Rivera [phone] [facility]: St: REG FAX: Bhakti Penaloza MD [phone] Name: PADMINI MACKEY [facility] : 1960 Age/S: 59/F [address] [facility] Unit #: [id number] Loc: [address] Phys: Mandy Riveraen RFP WRITER [id number] Acct: [id number] Dis Date: Status: REG ER PHONE #: [phone] Exam Date: 09/24/2019 1011 FAX #: [phone] Reason: swelling EXAMS: CPT CODE: [id number] XR FOOT 3 + V LT [id number] <Continued> Orig Print D/T: S: 09/24/2019 (1015) PAGE 2 Signed Report CBC W/AUTO [id number] 10:09:00 * Test Item Value Reference Range [...] K/mm3 0.0-0.2 N - CT CHEST W/O [id number] 09:40:00 FAX: Scar Sood [phone] Am[facility]: St: DEP Name: PADMINI WALTERS [facility] : 8 Age/S: 59/F [address] [facility] Unit: [id number] [place]: [place]: [place] [address] Acct: [id number] Dis Date: Status: DEP CLI PHONE #: [phone] Exam Date: 09/07/2019 1150 FAX #: [phone] Reason: PNA, ABNORMAL FINDINGS OF LUNG FIELD EXAMS: CPT CODE: [id number] CT CHEST W/O CONTRAST 24538 HISTORY: Cough, pneumonia. CT chest, unenhanced. Reformatted [...] 1 Signed Report (CONTINUED) FAX: Scar Sood [phone] Am[facility]: St: DEP Name: Vanessa MACKEY [facility] : 1960 Age /S: 59/F [address] [facility] Unit: [id number] Loc: E .[place], [place]: [place] [address] Acct: [id number] Dis Date: Status: DEP CLI PHONE #: [phone] E xam Date: 09/07/2019 1150 FAX #: [phone] Reason: PNA, ABNORMAL FINDINGS OF LUNG FIELD EXAMS: CPT CODE: [id number] CT CHEST W/O CONTRAST 66727 <Continued> Location: 9 at 0940 Reported and signed by: Sukhdev Foreman M.D. CC: Scar Stephen MD Technologist: BOSTON ZIMMERMAN; PRATIBHA MEADE Trnscrd Dt/Tm: 09/08/2019 (0940) t.RCM Orig Print D/T: S: 09/08/2019 (4643 PAGE 2 Signed Report [id number] 00:29:00* Test Item Value Reference Range Interpretation Comments GLUBED (test code = GLUBED) 91 mg/dL 70-110 N [id number] 00:29:00* Test Item Value Reference Range Interpretation Comments GLUBED (test code = GLUBED) 144 mg/dL 70-110 H [id number] 00:29:00* Test Item Value Reference Range Interpretation Comments GLUBED (test code = GLUBED) 174 mg/dL 70-110 H [id number] 07:19:00* Test Item Value Reference Range Interpretation Comments HGBA1C% (test code = HGBA1C%) 5.4 %A1C 4.8-6.0 N ESTIMATED AVERAGE GLUCOSE (test code = EAG) 108 MG/DL [id number] 07:14:00* Test Item Value Reference Range Interpretation Comments GLUBED (test code = GLUBED) 114 mg/dL 70-110 H CBC W/AUTO [id number] 06:28:00* Test Item Value Reference Range Interpretation [...] code = BA#) 0.0 K/mm3 0.0-0.2 N [id number] 22:06:00* Test Item Value Reference Range Interpretation Comments GLUBED (test code = GLUBED) 130 mg/dL 70-110 H [id number] 16:41:00* Test Item Value Reference Range Interpretation Comments GLUBED (test code = GLUBED) 128 mg/dL 70-110 H - XR CHEST 2 [id number] 15:24:00 FAX: Tosin Reno MD [phone] [facility]: St: [facility] FAX: Casimiro Hubbard [phone] Name: PADMINI MACKEY [facility] : 1960 Age/S: 59/F [address] [facility] Unit #: [id number] Loc: [address] Phys: [place] [address] Acct: [id number] Dis Date: Status: ADM IN PHONE #: [phone] Exam Date: 08/17/2019 1521 FAX #: [phone] Reason: follow up pneumonia EXAMS: CPT CODE: [id number] XR CHEST 2 V 28564 REASON FOR EXAM: Pneumonia. COMPARISON: August 16, [...] cardiopulmonary disease. Minimal basilar scarring likely. Location: [facility] at 1524 Reported and signed by: Sukhdev Foreman M.D. CC: Tosin Cabrera MD; Adriana Nino MD Technologist: LATESHA LOW PAGE 1 Signed Report FAX: Tosin Reno MD [phone] [facility]: St: ADM FAX: Casimiro Hubbard [phone] Name: KT MACKEY [facility] : 1960 Age/S: 59/F [address] [facility] Unit #: [id number] Loc: [address] [place]: [place] [address] Acct: [id number] Dis Date: Status: ADM IN PHONE #: [phone] Exam Da te: 08/17/2019 1521 FAX #: [phone] Reason: fo llow up pneumonia EXAMS: CPT CODE: [id number] XR CHEST 2 V 60038 <Continued> Trnvtrd Date/Time/By: 08/17/2019 (1524) : By: [facility] PAGE 2 Signed Report TROPONIN I RAPID [...] of temporal changes in troponin levelscharacteristic of DE. BASIC METABOLIC [id number] 16:45:00* Test Item Value Reference Range Interpretation [...] CA) 9.7 mg/dl 8.0-10.5 N B-TYPE NATRIURETIC [id number] 16:45:00* Test Item Value Reference Range Interpretation Comments B-TYPE NATRIURETIC PEPTIDE (test code = BNP) 31 PG/ML 5-100 N BASIC METABOLIC [id number] 16:37:00* Test Item Value Reference Range Interpretation [...] CA) 9.7 mg/dl 8.0-10.5 N B-TYPE NATRIURETIC [id number] 16:37:00* Test Item Value Reference Range Interpretation Comments B-TYPE NATRIURETIC PEPTIDE (test code = BNP) PG/ML 5-100 BASIC METABOLIC [id number] 16:36:00* Test Item Value Reference Range Interpretation [...] code = CA) mg/dl 8.0-10.5 B-TYPE NATRIURETIC [id number] 16:36:00* Test Item Value Reference Range Interpretation Comments B-TYPE NATRIURETIC PEPTIDE (test code = BNP) PG/ML 5-100 CBC W/AUTO [id number] 16:29:00* Test Item Value Reference Range Interpretation [...] K/mm3 0.0-0.2 N - XR CHEST 1 [id number] 16:22:00 Am[facility]: St: PRE Name: Elian MORENOPADMINI [facility] : [birth year] Age/S: 59/F [address] [facility] [employer] Reminder Unit #: [id number] Loc: [place], [place]: [place] [address] Acct: [id number] Dis Date: Status: PRE ER PHONE #: [phone] Exam Date: 08/16/2019 1616 FAX #: [phone] Reason: SOB EXAMS: CPT CODE: [id number] XR CHEST 1 V 51642 Site ID: [id number] HISTORY: Shortness of breath COMPARISON: Chest x-ray July 01, 2019 FINDINGS: Persistent patchy mild groundglass alveolitis remains present bilaterally, which could be inflammatory in etiology. Th ere appears to be more streaky associated basilar atelectasis currently. The heart and pulmonary vasculature is normal. [place] us structures are unremarkable. IMPRESSION: Pe rsistent patchy mild groundglass alveolitis remains present bilaterally, which could be inflammatory in etiology. There appears to be more stre aky associated basilar atelectasis currently. at 8046 Reported and s igned by: Steve Infante M.D. CC: Technologist: LATESHA LOW [facility] Date/Time/By: 08/16/2019 (9496) : By: [email or web address] PAGE 1 Signed Report Am[facility]: St: PRE Name: PADMINI TOSCANO [facility] : 1960 Age/S: 59/F [address] [facility] Unit #: [id number] L oc: CHARLES [place], [place]: [place] [address] Acct: [id number] Dis Date: Status: PRE ER PHONE #: [phone] Exam Date: 08/16/2019 1616 FAX #: [phone] Re ason: SOB EXAMS: CPT CODE: [id number] XR CHEST 1 V 73836 <Continued> Orig Print D/T: S: 08/16/2019 (9044) PAGE 2 Signed Report RHEUMATOID FACTOR [id number] 08:33:00* Test Item Value Reference Range Interpretation Comments RHEUMATOID FACTOR SCREEN (test code = RA) POS NEGATIVE A PER DARION MOORE FROM [facility],SPECIMEN IS QNS FORANCA P C..PATIENT DISCHA RGED ON 07/01/19.. E.LAB.EHI057 1621. RHEUMATOID FACTOR [id number] 08:33:00* Test Item Value Reference Range Interpretation Comments RHEUMATOID FACTOR TITER (test code = RAT) >650.0 IU/mL 0.0-13.9 A Results confirmed ondilution.Performed At: [facility] [id number] Portillo MD Ph:[phone] performed at [facility] [address] , [place] [address]Lizeth Ng MD PER DARION MOORE FROM [facility],SPECIMEN IS QNS FORANCA P C..PATIENT DISCHA RGED ON 07/01/19.. E.LAB.RGV003 1621. ANTINUCLEAR ANTIBODIES TITER 2019-07-08 08:33:00* Test Item Value Reference Range Interpretation Comments LARRY DIRECT (test code = ANADIR) Negative () Negative <1:80 Borderline 1:80 Positive >1:80Performed At: [facility] [id number] Portillo MD Ph:[phone] PER DARION MOORE FROM [facility],SPECIMEN IS QNS FORANCA P C..PATIENT DISCHA RGED ON 07/01/19.. E.LAB.EDS551 1621. ABS ANTI-NEUT CYTO P [id number] 08:33:00* Test Item Value Reference Range Interpretation Comments MYELOPEROXIDASE ABS (test code = MPOAB) QUANT NOT SUFFICIENT U/mL ( ) Quantity was not sufficient for analysis.Notified: Amanda Infante at account.07/07/2019-Matt AB ANTI-NEUTROPHIL CYTO C (test code = NEUTCABC) TEST NOT PERFORMED titer () Test not performed AB ANTI-NEUTROPHIL CYTO. P (test code = NEUTCAB-P) TEST NOT PERF ORMED titer () Test not performed PROTEINASE 3 ABS (MA-3) (test code = MA-3) TEST NOT PERFORMED U/mL () Test not performed ATYPICAL ANCA (test code = ANCACOM) TEST NOT PERFORMED titer () Test not performedPerformed At: [address] [id number] Kelly MD Ph:[phone] PER DARION MOORE FROM [facility],SPECIMEN IS QNS FORANCA P C..PATIENT DISCHA RGED ON 07/01/19.. E.LAB.SKJ72307/07/19 1621. AG STREPTOCOCCUS PNEUMO/URINE 2019-07-06 02:33:00* Test Item Value Reference Range Interpretation Comments AG STREPTOCOCCUS PNEUMO/URINE (test code = STREPPNAG) Negative Negative TEST PERFORMED AT [address] [address] LEGIONELLA ANTIGEN,URINE,[id number] 02:33:00* Test Item Value Reference Range Interpretation Comments LEGIONELLA ANTIGEN,URINE,FARSHAD (test code = LEGAGUR) Negative Neg ative Presumptive negative for L. pneumophila serogroup 1 antigenin urine, suggesting no recent or current infection.Legionnaires' disease cannot be ruled out since otherserogroups and species may also cause disease.Performed At: [address] [id number] Sanjai MD Ph:[phone] PERFORMED AT [address] [address] AG STREPTOCOCCUS PNEUMO/[id number] 08:16:00* Test Item Value Reference Range Interpretation Comments AG STREPTOCOCCUS PNEUMO/URINE (test code = STREPPNAG) Negative Negative TEST PERFORMED AT [address] [address] LEGIONELLA ANTIGEN,URINE,[id number] 08:16:00* Test Item Value Reference Range Interpretation Comments LEGIONELLA ANTIGEN,URINE,FARSHAD (test code = LEGAGUR) NEG ATIVE RHEUMATOID FACTOR [id number] 09:23:00* Test Item Value Reference Range Interpretation Comments RHEUMATOID FACTOR SCREEN (test code = RA) POS NEGATIVE A RHEUMATOID FACTOR [id number] 09:23:00* Test Item Value Reference Range Interpretation Comments RHEUMATOID FACTOR TITER (test code = RAT) >650.0 IU/mL 0.0-13.9 A Results confirmed ondilution.Performed At: [facility] [id number] Portillo MD Ph:[phone] performed at [facility] [address] , [place] [address]I Hernandez [place] ANTINUCLEAR ANTIBODIES [id number] 09:23:00* Test Item Value Reference Range Interpretation Comments LARRY DIRECT (test code = ANADIR) Negative () Negative <1:80 Borderline 1:80 Positive >1:80Performed At: [facility] Afl[address]st[address] [place], [place] [id number] Portillo MD Ph:[phone] ABS ANTI-NEUT CYTO P [id number] 09:23:00* Test Item Value Reference Range Interpretation Comments MYELOPEROXIDASE ABS (test code = MPOAB) U/mL 0.0-9.0 AB ANTI-NEUTROPHIL CYTO C (test code = NEUTCABC) titer NEG:< 1:20 AB ANTI-NEUTROPHIL CYTO. P (test code = NEUTCAB-P) titer NEG :<1:20 PROTEINASE 3 ABS (MA-3) (test code = MA-3) U/mL 0.0-3.5 ATYPICAL ANCA (test code = ANCACOM) titer NEG:<1:20 RHEUMATOID FACTOR [id number] 21:44:00* Test Item Value Reference Range Interpretation Comments RHEUMATOID FACTOR SCREEN (test code = RA) POS NEGATIVE A RHEUMATOID FACTOR [id number] 21:44:00* Test Item Value Reference Range Interpretation Comments RHEUMATOID FACTOR TITER (test code = RAT) ANTINUCLEAR ANTIBODIES [id number] 21:44:00* Test Item Value Reference Range Interpretation Comments LARRY DIRECT (test code = ANADIR) NEGATIVE ABS ANTI-NEUT CYTO P [id number] 21:44:00* Test Item Value Reference Range Interpretation Comments MYELOPEROXIDASE ABS (test code = MPOAB) U/mL 0.0-9.0 AB ANTI-NEUTROPHIL CYTO C (test code = NEUTCABC) titer NEG:< 1:20 AB ANTI-NEUTROPHIL CYTO. P (test code = NEUTCAB-P) titer NEG :<1:20 PROTEINASE 3 ABS (MA-3) (test code = MA-3) U/mL 0.0-3.5 ATYPICAL ANCA (test code = ANCACOM) titer NEG:<1:20 CBC W/AUTO [id number] 08:36:00* Test Item Value Reference Range Interpretation [...] USE BLOOD IN LAB- XR CHEST 2 [id number] 07:35:00 FAX: Scar Sood [phone] [facility]: St: ADM FAX: Casimiro Hubbard [phone] Name: PADMINI MACKEY [facility] : 1960 Age/S: 59/F [address] [facility] Unit #: [id number] Loc: [address] [place], [place]: [place] [address] Acct: [id number] Dis Date: Status: ADM IN PHONE #: [phone] Exam Date: 07/01/2019719 FAX #: [phone] Reason: Followup, pulmonary i nfiltrates, rheumatoid art EXAMS: CPT CODE: [id number] XR CHEST 2 V 00121 EXAM: - XR CHEST 2 V HISTORY: [...] MD; Adriana Nino MD Technologist: BRAXTON [facility] Date/Time/By: 07/01/2019 (0735) : By: [email or web address] PAGE 1 Signed Report FAX: Scar Sood [phone] [facility]: St: ADM FAX: Casimiro Hubbard [phone] ------- Name: PADMINI MACKEY [facility] : [birth year] Age/S: 59/F [address] [facility] Unit #: [id number] Loc: E[address] [place], [place]: [place] [address] Acct: [id number] Dis Date: Status: ADM IN PHONE #: [phone] Exam Date: 07/01/2019719 FAX #: [phone] Reason: Followup, pulmonary infiltrates, rheumatoid art EXAMS: CPT CODE: [id number] XR CHEST 2 V 99956 <Continued> Orig Print D/T: S: 07/01/2019 (0784) PAGE 2 Signed Report URINALYSIS [id number] 04:47:00* Test Item Value Reference Range Interpretation [...] (test code = FINEU) 0-1 /LPF URINALYSIS [id number] 04:40:00* Test Item Value Reference Range Interpretation [...] UA BACTERIA (test code = BACU) NONE [id number] 00:59:00* Test Item Value Reference Range Interpretation Comments GLUBED (test code = GLUBED) 109 mg/dL 70-110 N [id number] 17:48:00* Test Item Value Reference Range Interpretation Comments GLUBED (test code = GLUBED) 122 mg/dL 70-110 H - XR SHOULDER 2 + V [id number] 07:04:00 FAX: Yisel Rodriguez MD Amity: St: REG Name: PADMINI HUERTA [facility] : [birth year] Age/S: 59/F [address] [facility] Unit #: [id number] Loc: [address] Phys: [place] [address] Acct: [id number] Dis Date: Status: REG ER PHONE #: [phone] Exam Date: 06/30/2019 0702 FAX #: [phone] Reason: shoulder injury EXAMS: CPT CODE: [id number] XR SHOULDER 2 + [place] [address] EXAM: - XR SHOULDER 2 + V [...] osteoarthritis is present bilaterally. IMPRESSION: No ac [place] osseous abnormality. at 0704 Reported and signed by: Ty Willams M.D. CC: Yisel Rodriguez MD Technologist: LATESHA CHI Trnscrd Date/Time/By: 06/30/2019 (0704) : By: [email or web address] PAGE 1 Signed Report FAX: Noemi Rodriguez MD Amity: EM St: REG Name: PADMINI MACKEY [facility] : 1960 Age/S: 59/F [address] [facility] Unit #: [id number] Loc: E.ERS[address] [place], [place]: [place] [address] Acct: [id number] Dis Date: Status: REG ER PHONE #: [phone] Exam Date: 701 FAX #: [phone] Reason: shoulder injury EXAMS: CPT CODE: [id number] XR SHOULDER 2 + [place] [address] <Continued> Orig Print D/T: S: 06/30/2019 (0743) PAGE 2 Signed Report - XR WRIST 3 + V [id number] 07:03:00 FAX: Yisel Rodriguez MD Amity: St: REG Name: PADMINI HUERTA [facility] : [birth year] Age/S: 59/F [address] [facility] Unit #: [id number] Loc: E.ERS2 [place], [place]: [place] [address] Acct: [id number] Dis Date: Status: REG ER PHONE #: [phone] Exam Date: 06/30/2019701 FAX #: [phone] Reason: wrist injury EXAMS: CPT CODE: [id number] XR WRIST 3 + [place] [address] EXAM: - XR WRIST 3 + V [...] Jailene d Report FAX: Yisel Rodriguez MD Amity: St: REG Name: PADMINI MACKEY [facility] : 1960 Age/S: 59/F [address] [facility] Unit #: [id number] Loc: E.[address] [place] [address] Phys: [place] [address] Acct: [id number] Dis Date: Status: REG ER PHONE #: [phone] Exam Date: 06/30/2019 0702 FAX #: [phone] Reason: wrist injury EXAMS: CPT CODE: [id number] XR WRIST 3 + [place] [address] < Continued> Orig Print D/T: S: 06/30/2019 (0743) PAGE 2 Signed Report COMPREHENSIVE METABOLIC [id number] 07:02:00* Test Item Value Reference Range Interpretation [...] = ALKP) 115 Units/L 50.0-136 .0 N [id number] 07:02:00* Test Item Value Reference Range Interpretation Comments TROPONIN-I (test code = TROPI) <0.02 NG/ML 0.00-0.06 N REFERENCE RANGE TROPONIN I HEALTHY INDIVIDUALS: <0.06 ng/mL R/O ISCHEMIA: 0.07 - 0.60 ng/mL CUT-OFF RANGE FOR AMI: 0.60 - 1.5 ng/mL - XR KNEE 3 V [id number] 07:02:00 FAX: Yisel Rodriguez MD Amity: JOSE MARIA St: REG [facility] [birth year] Age/S: 59/F [address] Unit #: [id number] Loc: E.ERS[address] [place], [place]: [place] [address] Acct: [id number] Dis Date: Status: REG ER PHONE #: [phone] Exam Date: 06/30/2019 0702 FAX #: [phone] Reason: knee injury EXAMS: CPT CODE: [id number] XR KN[place] [address] EXAM: - XR KNEE 3 V BI [...] CC: Yisel Rodriguez MD Technologist: LATESHA CHI Trnvtrd Date/Time/By: (07) : By: [email or web address] PAGE 1 Signed R eport FAX: Yisel Rodriguez MD Amity: St: REG Name: PADMINI MACKEY [facility] : 1960 Age/S: 59/F [address] [employer] Unit #: [id number] Loc: E.ERS[address] [place], [place]: [place] [address] Acct: [id number] Dis Date: Status: REG ER PHONE #: [phone] Exam Date: 06/30/2019 0702 FAX #: [phone] Reason: knee injury EXAMS: CPT CODE: [id number] XR KN[place] 3 [place] [address] < Continued> Orig Print D/T: S: 06/30/2019 (0743) PAGE 2 Signed Report - CT ABD PELVIS W/O [id number] 06:56:00 FAX: Yisel Rodriguez MD Am[facility]: St: REG Name: PADMINI WALTERS [facility] : 8 Age/S: 59/F [address] Unit: [id number] Loc: [address] [place]: [place] [address] Acct: [id number] Dis Date: Status: REG ER PHONE #: [phone] Exam Date: 06/30/2019 0643 FAX #: [phone] Reason: fall from standing - hip/back and side pain EXAMS: CPT CODE: [id number] CT ABD PELVIS W/O CONT 88145 AFTER HOURS SERVICE ON: 06/30/2019 6:49 AM [...] Report (CONT INUED) FAX: Yisel Rodriguez MD Amity: St: REG--- Na me: NARENDRAPADMINI [facility] : Age/S: 59/F [address] [facility] Unit: [id number] Loc: [address] Phys: [place] [address] Acct: [id number] Dis D ate: Status: REG ER PHONE #: Exam Date: 06/30/2019642 FAX #: Reason: fall from standing - hip/back and side pain EXAMS: CPT CODE: [id number] CT ABD PELVIS W /O CONT 16830 <Continued> AFTER HOURS SERVICE ON: 06/30/2019 6:49 [...] Signed Report (CONTINUED) FAX: Yisel Rodriguez MD Amity: St: REG Name: PADMINI MACKEY [facility] : 1960 Age/S: 59/F [address] [facility] Unit: [id number] Loc: E.[address] Phys: [place] [address] Acct: [id number] Dis Date: Status: REG ER PHONE #: [phone] Exam Date: 06/30/2019 0643 FAX #: [phone] Reason: fall from standing - hip/back and side pain EXAMS: CPT CODE: [id number] CT ABD PELVIS W/O CONT 71522 <Continued> at 0656 Reported and signed by: Sebastien Conner M.D. CC: Yisel Rodriguez MD Technologist: PRATIBHA STOVALL Trnscrd Dt/Tm: 06/30/2019 (0656) [email or web address] Orig Print D/T: S: 06/30/2019 (0743 PAGE 3 Signed Report - CT CHEST W/O [id number] 06:56:00 FAX: Yisel Rodriguez MD Amity: St: REG Name: PADMINI WALTERS [facility] : 8 Age/S: 59/F [address] [facility] Unit: [id number] Loc: [address] Phys: [place] [address] Acct: [id number] Dis Date: Status: REG ER PHONE #: [phone] Exam Date: 06/30/2019 0643 FAX #: [phone] Reason: chest wall injury EXAMS: CPT CODE: [id number] CT CHEST W/O CONTRAST 72137 AFTER HOURS SERVICE ON: 06/30/2019 6:49 AM [...] Report (CONT INUED) FAX: Yisel Rodriguez MD Amity: St: REG--- Na me: PADMINI MACKEY [facility] : Age/S: 59/F [address] [facility] Unit: [id number] Loc: [address] Phys: [place] [address] Acct: [id number] Dis D ate: Status: REG ER PHONE #: [phone] Exam Date: 06/30/2019 0643 FAX #: Reason: chest wall injury EXAMS: CPT CODE: [id number] CT CHEST W/O CO NTRAST 93761 <Continued> AFTER HOURS SERVICE ON: 06/30/2019 6:49 [...] Signed Report (CONTINUED) FAX: Yisel Rodriguez MD Amity: St: REG Name: PADMINI MACKEY [facility] : 1960 Age/S: 59/F [address] [facility] Unit: [id number] Loc: [address] [place]: [place] [address] Acct: [id number] Dis Date: Status: REG ER PHONE #: [phone] Exam Date: 06/30/2019 0643 FAX #: [phone] Reason: chest wall injury EXAMS: CPT CODE: [id number] CT CHEST W/O CONTRAST 83408 <Continued> at 0656 Reported and signed by: Sebastien Conner M.D. CC: Yisel Rodriguez MD Technologist: PRATIBHA Obrien Dt/Tm: 06/30/2019 (0656) [email or web address] Orig Print D/T: S: 06/30/2019 (0743 PAGE 3 Signed Report - CT C-SPINE W/O [id number] 06:51:00 FAX: Yisel Rodriguez MD Amity: St: REG Name: PADMINI WALTERS [facility] : 8 Age/S: 59/F [address] Unit: [id number] Loc: E.ERS[address] [place], [place]: [place] [address] Acct: [id number] Dis Date: Status: REG ER PHONE #: [phone] Exam Date: 06/30/2019 0643 FAX #: [phone] Reason: neck injury EXAMS: CPT CODE: [id number] CT C-SPINE W/O CONT 45197 DICTATION LOCATION: H48 HISTORY: Female, 59 years [...] in the cervical spine. 2. Bilateral apical oklby g opacities. at 0651 Reported and signed by: Padmini Olivarez M.D. CC: Yisel mancera MD Technologist: PRATIBHA STOVALL Trnscrd Dt/Tm: 06/30/2019 (0651) Juno Orig Print D/T: S: 06/30/2019 (2136 PAGE 1 Signed Report - CT HEAD/BRAIN W/O [id number] 06:51:00 FAX: Yisel Rodriguez MD Amity: St: REG Name: [facility]MINI [facility]S [facility] 8 Age/S: 59/F [address] [facility] Unit: [id number] Loc: E.ERS[address] [place], [place]: [place] [address] Acct: [id number] Dis Date: Status: REG ER PHONE #: [phone] Exam Date: 06/30/2019 0643 FAX #: [phone] Reason: head injury EXAMS: CPT CODE: [id number] CT HEAD/BRAIN W/O CONT 78412 DICTATION LOCATION: H48 HISTORY: Female, 59 years [...] Technologist: PRATIBHA STOVALL Trnscrd Dt/Tm: 06/30/2019 (0651) [email or web address] Orig Print D/T: S: 06/30/2019 (0743 PAGE 1 Signed Report CBC W/AUTO DIFF [...] BA#) 0.0 K/mm3 0.0-0.2 N COMPREHENSIVE METABOLIC [id number] 06:43:00* Test Item Value Reference Range Interpretation [...] (test code = ALKP) Units/L 50.0-136 .0 [id number] 06:43:00* Test Item Value Reference Range Interpretation Comments TROPONIN-I (test code = TROPI) NG/ML 0.00-0.06
[2020-07-22 06:00] LABS: ANION GAP 17.2 mmol/L (8-16); CALCIUM 8.9 mg/dL (8.4-10.2); CREATININE, SERUM 1.77 mg/dL (0.57-1.11); POTASSIUM 4.2 mmol/L (3.5-5.1)
--- NOTE | 2020-07-22 06:16 | NUR ---
INFORMED OF AM LAB RESULTS. STATES TO NOTIFY RAD TO PERFORM CT S CONTRAST. SPOKE TO AYO.
[2020-07-22] MEDS ORDERED: DIATRIZOATE MEGL/DIATRIZOA SOD 30 ML BTL PO ONE (07:01)
[2020-07-22] MEDS ORDERED: ONDANSETRON HCL INJ 2MG/ML 2ML 2 MG/ML VIAL IV STA (07:45)
[2020-07-22] MEDS ORDERED: ONDANSETRON HCL INJ 2MG/ML 2ML 2 MG/ML VIAL ONE ×2 (07:57→14:18)
--- NOTE | 2020-07-22 08:59 | NUR ---
PER ROSA IN LAB, COVID SWAB WITH 31 MORE MINS BEFORE READY TO REPORT.
[2020-07-22] MEDS ORDERED: SODIUM CHLORIDE 0.9% 500ML 500 ML IV ONE (09:00)
--- NOTE | 2020-07-22 09:26 | NUR ---
H&P cc: abdominal pain HPI: 60yoF, PCP ??, developed abdominal pain after recent lap mike about 1 week ago. Found to have biliary leak, RAYMOND drain placed. PMH: mood d/o, DM2, HTn, HLD, hypothyroidism, TIA 2010, Cig use PSHx: Lap mike, left knee, left foot, hysterectomy, appendectomy, TL, Allergies; see emr Fh/SH; ; cigs use meds; see MAR ROS; no f/c/s/N/V/D/KISER/cp/sob/skin/rash/confusion/dizziness/leg pain/focal limb weakness v/s; revd PE tired appearing anicteric ns1s2 mod bs soft nd; RIGHT ABD TENDER; RAYMOND DRAIN IN PLACE; skin dry flat affect a&ox3; day labs/meds revd A/P: Biliary leak following Lap mike- s/p drain placement Post surgical Ileus - ambulate; optimize lytes Fecal impaction- may benefit from enema PANCHO- IVF; renal fn normal in recent past; check renal U/S UTI- IV aztreonam Pulmonary edema- monitor with fluids; Pumonary infection? use azithromycin if no allergy. Overweight- screen for DM BMI 29.9- as above Hypothyroidism- synthroid DM2- hab1c/lipids; ssi; Nicotine dependence- patch if needed. Prop: scd; IV pepcid Dispo: ANTWAN ZUÑIGA MD, PHD.
[2020-07-22 09:33] LABS: ABG HCO3 25 mmol/L (22-26); ABG PCO2 41 mmHg (35-45); ABG PO2 139 mmHg (80-105); ABG TCO2 27
--- NOTE | 2020-07-22 09:43 | Diagnostic Imaging Report ---
EXAM: CT Abdomen and Pelvis WITHOUT contrast INDICATION: abd pain COMPARISON: None. TECHNIQUE: Abdomen and pelvis were scanned utilizing a multidetector helical scanner from the lung base to the pubic symphysis without administration of IV contrast. Absence of intravenous contrast decreases sensitivity for detection of focal lesions and vascular pathology. Coronal and sagittal reformations were obtained. Routine protocol was performed. IV CONTRAST: None ORAL CONTRAST: Water COMPLICATIONS: None RADIATION DOSE: Total DLP: 763.71 mGy-cm Estimated effective dose: (DLP x 0.015 x size factor) mSv CTDIvol has been reviewed. It is below the limits set by the Radiation Protocol Committee (RPC). FINDINGS: LINES and TUBES: None. LOWER THORAX: There are bibasilar opacities which could be due to atelectasis or aspiration. Additionally there are faint groundglass opacities seen in the included lung likely inflammatory. HEPATOBILIARY: No focal hepatic lesions. No biliary ductal dilation. There is a small volume of perihepatic ascites. GALLBLADDER: No radio-opaque stones or sludge. No gallbladder wall thickening. SPLEEN: No splenomegaly.. PANCREAS: The unenhanced pancreas shows no focal masses. There is no ductal dilatation. ADRENALS: The adrenal glands are unremarkable. KIDNEYS/URETERS: No hydronephrosis. There is a 6.2 x 8.0 cm cyst with peripheral calcification arising from the upper pole of the right kidney. No stones. GI TRACT: Filling defect in the stomach likely representing ingested material. No abnormal distention, wall thickening, or evidence of bowel obstruction. PELVIC ORGANS/BLADDER: The bladder is unremarkable. LYMPH NODES: No lymphadenopathy. VESSELS: Vessels are incompletely evaluated due to lack of IV contrast. However no definite aneurysm seen. PERITONEUM / RETROPERITONEUM: Small amount of free fluid in the pelvis. BONES: There are degenerative changes in the spine. SOFT TISSUES: There is a fat containing para-umbilical hernia with the aperture measuring 2.0 cm and hernia sac measures 6.9 cm. IMPRESSION: Bibasilar opacities could be due to atelectasis or aspiration. Additionally there are faint groundglass opacities seen in the included lungs likely inflammatory. Small volume ascites in abdomen and pelvis. 8.0 cm cyst with peripheral calcification arising from the upper pole of the right kidney. Fat containing para-umbilical hernia with 2.0 cm aperture and 6.9 cm hernia sac. Signed by: Harley Fuller MD on 07/22/2020 9:40 AM
[2020-07-22] MEDS ORDERED: DEXTROSE 50% SYRINGE 50 ML IV PRN (10:30)
[2020-07-22] MEDS: SODIUM CHLORIDE 0.9% 1000ML 1,000 ML IV SCH (10:57)
[2020-07-22] MEDS: FAMOTIDINE 20 MG/2 ML VIAL IV SCH ×2 (10:57→17:39)
[2020-07-22 11:06] LABS: CHOL/HDL RATIO 4.3 (3.0-3.6)
[2020-07-22] MEDS: INSULIN REGULAR, HUMAN 100 UNIT/1 ML 3ML VIAL SQ SCH ×3 (11:30→21:00)
[2020-07-22] MEDS: AZITHROMYCIN 250MG/NS 100 ML 100 ML IV SCH (11:56)
--- NOTE | 2020-07-22 12:00 | NUR ---
multiple calls and attempts to reach dr torre; spoke with house sup states contacted med director dr mathis who states to call sx control equipment electrician for stat consult. dr marquez order placed per dr mathis for sx consult of dr marquez; dr marquez paged. primary rn notified and aware of all findings.
[2020-07-22 13:15] VITALS: BP 109/66
[2020-07-22 14:06] VITALS: BP 109/66
[2020-07-22] MEDS: AZTREONAM 1 GM/NS 50 ML 50 ML IV SCH ×2 (14:17→22:00)
[2020-07-22] MEDS ORDERED: SUCCINYLCHOLINE CHLORIDE 20 MG/ML 10ML VIAL ONE (14:18)
[2020-07-22] MEDS ORDERED: LIDOCAINE HCL 2% LOCAL INJ 5 ML SDV VIAL INJ ONE (14:18)
[2020-07-22] MEDS ORDERED: EPHEDRINE SULFATE INJ 50 MG/ML VIAL ONE (14:18)
[2020-07-22] MEDS ORDERED: NEOSTIGMINE 1 MG/ML 10ML VIAL ONE (14:18)
[2020-07-22] MEDS ORDERED: SEVOFLURANE INHAL SOLN 250 ML PEN BTL ONE (14:18)
[2020-07-22] MEDS ORDERED: PHENYLEPHRINE HCL 1% 10 MG/ML VIAL ONE (14:18)
[2020-07-22] MEDS ORDERED: ROCURONIUM BROMIDE 10 MG/ML 5ML VIAL IV ONE (14:18)
[2020-07-22] MEDS ORDERED: PROPOFOL IV EMULSION 10 MG/ML 20 ML VIAL ONE (14:18)
[2020-07-22] MEDS ORDERED: GLYCOPYRROLATE INJ 0.2 MG/ML VIAL ONE (14:18)
[2020-07-22] MEDS ORDERED: BUPIVACAINE 0.25% 30ML SDV INJ ONE (14:33)
--- NOTE | 2020-07-22 14:35 | NUR ---
Gen Surgery Consult: HPI: 60 yo F who underwent a laparscopic cholecystectomy one week ago by me. She was doing well until when she developed abdominal pain. She presented to ER last night with progressive symptoms and hypotension. CT scan showed ascites and an incarcerated periumbilical hernia containing omentum. Her total bilirubin level was elevated to 4.0 Physical exam: General- appears distressed, anxious Abdomen- distended, tender epigastrium WBC 15,000 total bili 4.0 A/P: POD 6, s/p lap mike for cholecystitis #1 Acute abdomne #2 Hyperbilirubinemia -Will proceed to diagnositic laparoscopy and surgical exploration. She may have developed a bile leak. Will assess the hernia at the time of surgery as well and may repair it. However, my index of suspicion for the hernia causing her current symptoms and clinical deterioration is low. I am more concerned about a bile leak. Consent obtained by patient for surgical intervention.
[2020-07-22 14:47] LABS: BILIRUBIN,DIRECT 2.2 mg/dL (0.0-0.5)
[2020-07-22] MEDS ORDERED: ACETAMINOPHEN 1000 MG/100 ML 100 ML IV ONE (15:23)
--- NOTE | 2020-07-22 15:30 | NUR ---
PATIENTS RADHA AND SON WERE PROVIDED WITH PATIENTS [employer]ING RING, PRIOR TO SURGERY AT THIS TIME, VERBALIZED THEY WOULD TAKE RING HOME INSTEAD OF SENDING IT TO SECURITY.
[2020-07-22 17:05] VITALS: BP 119/57
--- NOTE | 2020-07-22 17:07 | Operative Report ---
DATE OF PROCEDURE: 07/22/2020 SURGEON: Jacques Sigala MD PREOPERATIVE DIAGNOSES: 1. Acute abdomen. 2. Sepsis. 3. Status post laparoscopic cholecystectomy 1 week ago. POSTOPERATIVE DIAGNOSES: 1. Bile leak. 2. Multiple ventral hernia. 3. Abdominal sepsis. PREOPERATIVE INDICATION: Treat disease, prevent septic related complications. PROCEDURES: 1. Diagnostic laparoscopy with laparoscopic repair of 2 incarcerated ventral hernia. 2. Laparoscopic abdominal cavity washout with placement of a 19-Georgian round RAYMOND. ANESTHESIA: General. FORKLIFT TRUCK MECHANIC: Fabien Bob, neurosurgical nurse (needed due to complexity of case). FLUIDS: 1 L of crystalloid. ESTIMATED BLOOD LOSS: 10 mL. DRAINS: A 19-Georgian round RAYMOND. GRAFTS: None. SPECIMENS: None. FINDINGS: 1. A bile leak at the level of the gallbladder fossa. 2. Multiple ventral hernia with incarcerated omentum. PROCEDURE IN DETAIL: The patient was brought to the operating room and was intubated under general endotracheal anesthesia. She was sterilely prepped and draped in the usual fashion. A preprocedure pause was performed identifying the patient, use of perioperative antibiotics, intended procedure, and staff surgeon. Access was gained via a 5 mm incision using her previous port site using a Veress needle. The abdomen was insufflated. Two additional trocars were placed, one in the left lower abdomen, one in the right epigastric region through a previous port site, I noted immediately bile ascites in the abdomen, this was suctioned off. We explored the gallbladder fossa and noted that there may be some bile emanating from the duct of Luschka. I irrigated the peritoneal cavity and placed a 19-Georgian round RAYMOND. We had discovered two small ventral hernia, which were fixed with 0 PDS suture using a Mckinley Castro technique. There was also a larger incarcerated ventral hernia, which was plugged with omentum, I left that alone as she would need definitive repair with the mesh in the future, and I did not want to expose the defect for potential herniation of bowel. Once that was complete, we then desufflated the abdomen, removed the trocars. I secured the drain to the skin with 2-0 nylon suture. We then closed incision sites with manuel and placed dressings. The patient tolerated the procedure well. Type of wound was type 4, dirty. All surgical sponge and needle counts were correct. MD CLARITZA Tejeda/RL /[id number]
[2020-07-22] MEDS ORDERED: FENTANYL CITRATE/PF 100MCG/2 ML INJ ONE (18:33)
[2020-07-22] MEDS ORDERED: MIDAZOLAM HCL 2 MG/2 ML VIAL ONE (18:33)
[2020-07-22 20:00] VITALS: BP 104/54
[2020-07-22 21:29] VITALS: BP 108/54
[2020-07-23 00:27] VITALS: BP 108/58
[2020-07-23] MEDS: SODIUM CHLORIDE 0.9% 1000ML 1,000 ML IV SCH ×2 (02:59→19:24)
[2020-07-23 04:00] VITALS: BP 110/58
[2020-07-23 05:38] LABS: BASOPHILS # (AUTO) 0.1 (0.0-0.1); BASOPHILS % 0.5 % (0.0-1.0); EOSINOPHILS # (AUTO) 0.3 (0.0-0.4); EOSINOPHILS % 3.1 % (0.0-6.0); HEMATOCRIT 28.4 % (34.2-44.1); HEMOGLOBIN 9.4 g/dL (12.0-16.0); LYMPHOCYTES # (AUTO) 1.1 (1.0-3.2); LYMPHOCYTES % 10.6 % (18.0-39.1); MEAN CORPUSCULAR HEMOGLOBIN 33.6 pg (28-32); MEAN CORPUSCULAR HGB CONC 33.1 g/dL (31-35); MEAN CORPUSCULAR VOLUME 101.4 fL (81-99); MONOCYTES # (AUTO) 0.6 (0.2-0.8); MONOCYTES % 6.2 % (4.4-11.3); NEUTROPHILS # (AUTO) 8.1 (2.1-6.9); NEUTROPHILS % 79.1 % (38.7-80.0); PLATELET COUNT 316 x10e3/uL (140-360); RED CELL DISTRIBUTION WIDTH 14.1 % (11.7-14.4)
[2020-07-23 05:46] LABS: ALANINE AMINOTRANSFERASE 10 IU/L (0-55); ALBUMIN 2.6 g/dL (3.5-5.0); ALBUMIN/GLOBULIN RATIO 0.9 (0.8-2.0); ALKALINE PHOSPHATASE 135 IU/L (40-150); ANION GAP 17.6 mmol/L (8-16); BLOOD UREA NITROGEN 15 mg/dL (7-26); BUN/CREATININE RATIO 23 (6-25); CALCIUM 8.5 mg/dL (8.4-10.2); CARBON DIOXIDE 19 mmol/L (22-29); CHLORIDE 107 mmol/L (98-107); CREATININE, SERUM 0.64 mg/dL (0.57-1.11); EST GLOMERULAR FILTRATION RATE > 60 ML/MIN (60-); GLUCOSE 72 mg/dL (74-118); MAGNESIUM 1.6 MG/DL (1.3-2.1); PHOSPHORUS 2.4 MG/DL (2.3-4.7); POTASSIUM 3.6 mmol/L (3.5-5.1); SODIUM 140 mmol/L (136-145)
[2020-07-23] MEDS: AZTREONAM 1 GM/NS 50 ML 50 ML IV SCH ×3 (05:58→21:50)
[2020-07-23 07:00] VITALS: BP 121/67
[2020-07-23] MEDS: INSULIN REGULAR, HUMAN 100 UNIT/1 ML 3ML VIAL SQ SCH ×4 (07:30→21:00)
[2020-07-23 07:50] VITALS: BP 121/67
--- NOTE | 2020-07-23 10:40 | NUR ---
Progress Note S: Feels better, no complaints O: AF, VSS General- no distress Abdomen- soft, port sites covered with dressings; RAYMOND output bile-tinged A/P: POD 7, s/p lap mike for cholecystitis POD 1, s/p lap washout, drain placement and repair of ventral hernia x 2 for bile leak -ADAT -HIDA scan to assess leak -Ambulate today -Cont IV abx and supportive measures for sepsis -She has significantly improved from yesterday; WBC down, Bilirubin level down, creatinine improved.
[2020-07-23] MEDS: FAMOTIDINE 20 MG/2 ML VIAL IV SCH ×2 (10:41→19:24)
--- NOTE | 2020-07-23 11:13 | Diagnostic Imaging Report ---
EXAM: Renal Ultrasound INDICATION: PANCHO VS CKD COMPARISON: CT of the abdomen on 07/22/2020. TECHNIQUE: Transverse and longitudinal images of the kidneys and bladder were obtained. FINDINGS: The examination is limited due to patient's recent cholecystectomy bandages and tenderness on examination. Right Kidney: Size: 13.2 x 5.6 x 5.4 cm Echogenicity: Diffusely echogenic with slight loss of normal corticomedullary differentiation. Parenchymal thickness: Normal Collecting system: No hydronephrosis Stones: None Cyst/Mass: There is a cyst in the upper pole which measures 8.3 x 6.0 x 7.9 cm Left Kidney: Size: 12.7 x 5.0 x 4.7 cm Echogenicity: Diffusely echogenic with slight loss of normal corticomedullary differentiation. Parenchymal thickness: Normal Collecting system: No hydronephrosis Stones: None Cyst/Mass: None Bladder: There is a Morocho catheter in place with prevoid volume of 27.35 cc. IMPRESSION: 1. Diffusely echogenic kidneys with slight loss of normal corticomedullary differentiation. These findings are suggestive of medical renal disease of uncertain chronicity. 2. Right renal cyst. Signed by: Stevie Cooper MD on 07/23/2020 11:10 AM
[2020-07-23] MEDS: AZITHROMYCIN 250MG/NS 100 ML 100 ML IV SCH (11:32)
[2020-07-23 12:00] VITALS: BP 136/64
--- NOTE | 2020-07-23 12:28 | NUR ---
IM- progress note O/N see below ROS; no f/c/s/N/V/D/KISER/cp/sob/skin/rash/confusion/dizziness/leg pain/focal limb weakness v/s; revd PE tired appearing anicteric ns1s2 mod bs soft nd; RIGHT ABD TENDER; RAYMOND DRAIN IN PLACE; skin dry flat affect a&ox3; day labs/meds revd A/P: Biliary leak following Lap mike- s/p drain placement Post surgical Ileus - ambulate; optimize lytes Fecal impaction- may benefit from enema PANCHO- IVF; renal fn normal in recent past; check renal U/S UTI- IV aztreonam Pulmonary edema- monitor with fluids; Pumonary infection? use azithromycin if no allergy. Overweight- screen for DM BMI 29.9- as above Hypothyroidism- synthroid DM2- hab1c/lipids; ssi; Nicotine dependence- patch if needed. Prop: scd; IV pepcid Dispo: 07-23-20 f/u HIDA scan; continue pain control; ANTWAN ZUÑIGA MD, PHD.
--- NOTE | 2020-07-23 15:27 | Diagnostic Imaging Report ---
Post-Cholecystectomy HIDA Scan Clinical information: Ileus. Eight days post cholecystectomy. Severe abdominal pain Report: Following intravenous administration of 6 mCi of technetium-99m mebrofenin, dynamic images of the abdomen in the anterior projection were obtained through 50 minutes. Study was stopped 10 minutes early because patient could not tolerate more imaging due to pain. Perfusion to the liver is normal. Extraction of tracer by the liver parenchyma is normal. Tracer appears in the common bile duct by 5 minutes post injection. Tracer is seen within the small bowel by 10 minutes. A very minimal amount of tracer appears in the gallbladder fossa at 17 minutes and persists through the remainder of the study without increasing in size. A collection of tracer also appears in the mid abdomen just to the left of midline at 20 minutes associated with a loop of jejunum. It increases slightly in size and intensity over the next 12 minutes and then persists for the remainder of the study. No tracer appears along the right border of the liver to correspond to the perihepatic ascites seen on CT scan of abdomen/pelvis 07/22/2020. No tracer appears in the right or left [place]-col[place] gutters. Impression: 1. Very minimal bile leak into the gallbladder fossa. 2. Accumulation of tracer/bile associated with the proximal jejunum in the mid abdomen just to the left of midline. No correlate is seen on CT 07/22/2020. 3. No accumulation of tracer/bile in the perihepatic ascites seen on yesterday's CT. Signed by: Dr. Dolores Thomas M.D. on 07/23/2020 3:24 PM
[2020-07-23] MEDS: ONDANSETRON HCL INJ 2MG/ML 2ML 2 MG/ML VIAL IV PRN (17:27)
--- NOTE | 2020-07-23 19:50 | NUR ---
Pt. alert and oriented x3. Oxygen on 2L per nasal cannula . Respirations are even and unlabored. Abdominal incisions x4 are intact. No bleeding noted. RAYMOND bulb is compressed and draining yellow drainage. Morocho catheter is patent and intact draining light tatyana urine.
[2020-07-23 20:00] VITALS: BP 158/75
[2020-07-23] MEDS ORDERED: AMIODARONE HCL 900 MG in DEXTROSE 5% 500ML 500 ML IV ONE (22:00)
[2020-07-23] MEDS ORDERED: AMIODARONE HCL 150 MG/100 ML BAG IV ONE (22:00)
[2020-07-24] VITALS (8 sets, daily range): BP systolic 122–159; BP diastolic 62–79
[2020-07-24] MEDS: SODIUM CHLORIDE 0.9% 1000ML 1,000 ML IV SCH (03:26)
[2020-07-24] MEDS: LEVOTHYROXINE SODIUM 25 MCG TABLET PO SCH (06:24)
[2020-07-24] MEDS: AZTREONAM 1 GM/NS 50 ML 50 ML IV SCH ×3 (06:24→21:58)
[2020-07-24] MEDS: INSULIN REGULAR, HUMAN 100 UNIT/1 ML 3ML VIAL SQ SCH ×4 (07:30→21:00)
[2020-07-24] MEDS: ONDANSETRON HCL INJ 2MG/ML 2ML 2 MG/ML VIAL IV PRN (08:59)
[2020-07-24] MEDS: FAMOTIDINE 20 MG/2 ML VIAL IV SCH ×2 (08:59→17:23)
[2020-07-24] MEDS ORDERED: VENLAFAXINE HCL 37.5MG XR CAP PO SCH (09:00)
[2020-07-24] MEDS: GABAPENTIN 400 MG CAP PO SCH (09:12)
[2020-07-24] MEDS: VENLAFAXINE HCL 75 MG CAPCR PO SCH (09:12)
[2020-07-24] MEDS: TRAZODONE HCL 50 MG TAB PO SCH (09:12)
[2020-07-24] MEDS: LORATADINE/PSEUDOEPHEDRINE 24 HR SR TAB PO SCH (09:12)
[2020-07-24] MEDS: AZITHROMYCIN 250MG/NS 100 ML 100 ML IV SCH (10:30)
--- NOTE | 2020-07-24 12:04 | NUR ---
Progress Note S: No major complaints; passing gas, but felt nauseous yesterday O: AF, VSS General- no acute distress Abdomen- soft, incisions healing well; RAYMOND output more serosanguineous today (slightly bile tinged) A/P: POD 8, s/p lap mike POD 2, s/p lap hernia repair and drain placement for bile leak at GB fossa HIDA scan showed slight bile leak at GB fossa, otherwise most of the bile flow was through the ducts and into intestines. -Ambulate frequently -DC lubin once ambulating -Cont RAYMOND drain -ADAT -Dispo: home in 24-48 hours
--- NOTE | 2020-07-24 20:00 | NUR ---
Pt. is alert and oriented x3. Oxygen on 1L per nasal cannula. Respirations are even and unlabored. Abd. incisions x4 sites are clean, dry , manuel intact open to air. RAYMOND bulb is compressed draining yellow drainage. IV of Normal saline infusing into her L antecubital at 75ml/hr. No redness or edema noted at site. Morocho catheter is patent and intact draining clear yellow urine.
[2020-07-25] VITALS (9 sets, daily range): BP systolic 128–168; BP diastolic 56–91
[2020-07-25] MEDS: SODIUM CHLORIDE 0.9% 1000ML 1,000 ML IV SCH ×3 (01:53→17:07)
[2020-07-25] MEDS: LEVOTHYROXINE SODIUM 25 MCG TABLET PO SCH (06:03)
[2020-07-25] MEDS: AZTREONAM 1 GM/NS 50 ML 50 ML IV SCH ×3 (06:03→20:06)
--- NOTE | 2020-07-25 06:29 | NUR ---
IM- progress note O/N see below ROS; no f/c/s/N/V/D/KISER/cp/sob/skin/rash/confusion/dizziness/leg pain/focal limb weakness v/s; revd PE tired appearing anicteric ns1s2 mod bs soft nd; RIGHT ABD TENDER; RAYMOND DRAIN IN PLACE; skin dry flat affect a&ox3; day labs/meds revd A/P: Biliary leak following Lap mike- s/p drain placement Post surgical Ileus - ambulate; optimize lytes Fecal impaction- may benefit from enema PANCHO- IVF; renal fn normal in recent past; check renal U/S UTI- IV aztreonam Pulmonary edema- monitor with fluids; Pumonary infection? use azithromycin if no allergy. Overweight- screen for DM BMI 29.9- as above Hypothyroidism- synthroid DM2- hab1c/lipids; ssi; Nicotine dependence- patch if needed. Prop: scd; IV pepcid Dispo: 07-23-20 f/u HIDA scan; continue pain control; -8 Cont care; HIDA completed; ANTWAN ZUÑIGA MD, PHD.
--- NOTE | 2020-07-25 06:30 | NUR ---
IM- progress note O/N see below ROS; no f/c/s/N/V/D/KISER/cp/sob/skin/rash/confusion/dizziness/leg pain/focal limb weakness v/s; revd PE tired appearing anicteric ns1s2 mod bs soft nd; RIGHT ABD TENDER; RAYMOND DRAIN IN PLACE; skin dry flat affect a&ox3; day labs/meds revd A/P: Biliary leak following Lap mike- s/p drain placement Post surgical Ileus - ambulate; optimize lytes Fecal impaction- may benefit from enema PANCHO- IVF; renal fn normal in recent past; check renal U/S UTI- IV aztreonam Pulmonary edema- monitor with fluids; Pumonary infection? use azithromycin if no allergy. Overweight- screen for DM BMI 29.9- as above Hypothyroidism- synthroid DM2- hab1c/lipids; ssi; Nicotine dependence- patch if needed. Prop: scd; IV pepcid Dispo: 07-23-20 f/u HIDA scan; continue pain control; 9-8 Cont care; HIDA completed; 9-9 HIDA minimal bile leak; U/S shows medicorenal disease; ANTWAN ZUÑIGA MD, PHD.
[2020-07-25] MEDS: INSULIN REGULAR, HUMAN 100 UNIT/1 ML 3ML VIAL SQ SCH ×4 (07:30→20:22)
[2020-07-25] MEDS: TRAZODONE HCL 50 MG TAB PO SCH (08:32)
[2020-07-25] MEDS: GABAPENTIN 400 MG CAP PO SCH (08:32)
[2020-07-25] MEDS: LORATADINE/PSEUDOEPHEDRINE 24 HR SR TAB PO SCH (08:32)
[2020-07-25] MEDS: VENLAFAXINE HCL 75 MG CAPCR PO SCH (08:32)
[2020-07-25] MEDS: FAMOTIDINE 20 MG/2 ML VIAL IV SCH ×2 (08:32→16:49)
[2020-07-25] MEDS: AZITHROMYCIN 250MG/NS 100 ML 100 ML IV SCH (10:53)
--- NOTE | 2020-07-25 12:48 | NUR ---
Progress Note S: No complaints O: AF, VSS General- no acute distress Abdomen- soft, nontender; RAYMOND output serosanguineous; incision sites c/d/i A/P: POD 9, s/p lap mike, POD 3, s/p ventral hernia repair and drain placement for bile leak -DC lubin -Teach patient bile bag care prior to discharge -Will f/u with patient in 1 week in office
--- NOTE | 2020-07-25 14:30 | NUR ---
SPOKE WITH dR ZUÑIGA REGARDING DIET ORDER PER DR. YAHAIRA GARZA GIVEN FOR GI SOFT DIET.
--- NOTE | 2020-07-25 15:35 | NUR ---
PATIENTS RAYMOND DRAIN CHANGED TO BILE DRAINAGE BAG PER MD. PATIENT EDUCATED ON HOW TO EMPTY BAG AT HOME. ALL QUESTIONS ANSWERED AND RETURN DEMONSTRATION PROVIDED.
--- NOTE | 2020-07-25 19:48 | NUR ---
PATIENT'S BP HIGH AT 168/[address] ZUÑIGA TO NOTIFY OF PT CURRENT BP & THROUGHOUT THE DAY AND ORDERED TO START 25MG METOPROLOL PO Q8H AND METOPROLOL 5MG IV Q2H PRN FOR SYSTOLIC 140+. WILL CONT TO MONITOR.
[2020-07-25] MEDS ORDERED: METOPROLOL TARTRATE INJ 1 MG/ML VIAL IV PRN (20:00)
[2020-07-25] MEDS: METOPROLOL TARTRATE 25 MG TAB PO SCH (20:04)
--- NOTE | 2020-07-25 20:15 | NUR ---
CALLED DR BAEZ OFFICE TO NOTIFY OF PT PAIN LEVEL AND SEE IF WE CAN CONTINUE TYLENOL #3 THAT SHE WAS SENT HOME WITH AFTER HER SURGERY FOR THE PAIN. AWAITING CALL BACK.
--- NOTE | 2020-07-25 20:45 | NUR ---
NO CALL BACK FROM DR BAEZ OFFICE SO CALLED CELL PHONE WITH NO ANSWER. CALLED DR ZUÑIGA TO GET ORDER RESTARTED FOR PAIN MED AND COMPLETED.
--- NOTE | 2020-07-25 20:50 | NUR ---
DR BAEZ CALLED BACK AND NOTIFIED OF ORDER RESTARTED BY DR ZUÑIGA DUE TO PT PAIN LEVEL AND STATES HE WILL SEE HER IN AM. WILL CONT TO EUSEBIO.
[2020-07-25] MEDS: ACETAMINOPHEN/CODEINE 300MG - 30MG TAB PO PRN (20:58)
[2020-07-25] MEDS ORDERED: METOPROLOL TARTRATE 25 MG TAB PO SCH (22:00)
[2020-07-26 00:09] VITALS: BP 148/82
[2020-07-26] MEDS: ACETAMINOPHEN/CODEINE 300MG - 30MG TAB PO PRN (03:46)
[2020-07-26] MEDS: METOPROLOL TARTRATE 25 MG TAB PO SCH (03:46)
[2020-07-26 04:00] VITALS: BP 167/83
[2020-07-26 04:50] LABS: BASOPHILS % 0.5 % (0.0-1.0); EOSINOPHILS # (AUTO) 0.2 (0.0-0.4); EOSINOPHILS % 3.4 % (0.0-6.0); HEMATOCRIT 28.3 % (34.2-44.1); HEMOGLOBIN 9.8 g/dL (12.0-16.0); LYMPHOCYTES # (AUTO) 1.7 (1.0-3.2); LYMPHOCYTES % 27.3 % (18.0-39.1); MEAN CORPUSCULAR HEMOGLOBIN 33.1 pg (28-32); MEAN CORPUSCULAR HGB CONC 34.6 g/dL (31-35); MEAN CORPUSCULAR VOLUME 95.6 fL (81-99); MONOCYTES # (AUTO) 0.6 (0.2-0.8); MONOCYTES % 9.3 % (4.4-11.3); NEUTROPHILS # (AUTO) 3.7 (2.1-6.9); PLATELET COUNT 375 x10e3/uL (140-360); RED BLOOD COUNT 2.96 x10e6/uL (3.6-5.1); RED CELL DISTRIBUTION WIDTH 13.2 % (11.7-14.4)
[2020-07-26 05:11] LABS: ALANINE AMINOTRANSFERASE 7 IU/L (0-55); ALBUMIN 2.7 g/dL (3.5-5.0); ALBUMIN/GLOBULIN RATIO 1.1 (0.8-2.0); ALKALINE PHOSPHATASE 110 IU/L (40-150); BLOOD UREA NITROGEN 5 mg/dL (7-26); BUN/CREATININE RATIO 10 (6-25); CALCIUM 8.4 mg/dL (8.4-10.2); CARBON DIOXIDE 22 mmol/L (22-29); CHLORIDE 103 mmol/L (98-107); CREATININE, SERUM 0.49 mg/dL (0.57-1.11); EST GLOMERULAR FILTRATION RATE > 60 ML/MIN (60-); GLUCOSE 88 mg/dL (74-118); SODIUM 140 mmol/L (136-145)
[2020-07-26] MEDS: LEVOTHYROXINE SODIUM 25 MCG TABLET PO SCH (05:52)
[2020-07-26] MEDS: SODIUM CHLORIDE 0.9% 1000ML 1,000 ML IV SCH (05:52)
[2020-07-26] MEDS: AZTREONAM 1 GM/NS 50 ML 50 ML IV SCH (05:52)
[2020-07-26] MEDS ORDERED: POTASSIUM CHLORIDE 20 MEQ TAB CR PO STA (06:21)
--- NOTE | 2020-07-26 06:23 | NUR ---
D/C summary Principal dX: Biliary leak following Lap mike- s/p drain placement Post surgical Ileus - ambulate; optimize lytes Fecal impaction- may benefit from enema PANCHO- IVF; renal fn normal in recent past; check renal U/S UTI- IV aztreonam Pulmonary edema- monitor with fluids; Hypokalemia Pumonary infection? use azithromycin if no allergy. Secondary Dx: Overweight- screen for DM BMI 29.9- as above Hypothyroidism- synthroid DM2- hab1c/LDL = 4.7/55. No longer has DM Nicotine dependence- patch if needed. Prop: scd; IV pepcid Dispo: 07-23-20 f/u HIDA scan; continue pain control; 9- Cont care; HIDA completed; 9- HIDA minimal bile leak; U/S shows medicorenal disease; 9- renal fn improved. d/c home stable f/u pcp 2 day and [facility] 1 week d/c>35mins ANTWAN ZUÑIGA MD, PHD.
[2020-07-26] MEDS ORDERED: ULTRAM 50MG50 MG PO (06:27)
[2020-07-26] MEDS ORDERED: CLINDAMYCIN HC150 MG PO (06:27)
[2020-07-26] MEDS ORDERED: ZOFRAN4 MG PO (06:27)
[2020-07-26] MEDS ORDERED: CIPRO500 MG PO (06:27)
[2020-07-26] MEDS ORDERED: NIFEDIPINE ER30 M1 PO (06:27)
[2020-07-26] MEDS ORDERED: LOPRESSOR25 MG PO (06:27)
[2020-07-26] MEDS ORDERED: NIFEDIPINE CR 30 MG TAB PO SCH (06:30)
[2020-07-26 07:00] VITALS: BP 151/75
[2020-07-26 08:54] VITALS: BP 151/75
--- NOTE | 2020-07-26 08:57 | NUR ---
Pt discharged by Dr. Herrmann this morning. Patient given multiple prescriptions (see chart for copies of prescriptions). PIV x2 removed. Patient educated on medications and how to empty T tube, Dressing CDI. Patient educated to follow up with Dr. Bowens in 1 week and PCP in 2 days. Patient picked up by and does not appear to be in any distress at this time.
== END 2020-07-26 09:27 | disposition home or self-care (01) | DRG 853 ==
LOC: ER 01:14 → ERHOLD 05:47 → IMCU 13:15
PROVIDERS: ADMIT Internal Medicine; ATTEND Internal Medicine
PROC: 0W9G40Z Drainage of Peritoneal Cavity with Drainage Device, Percutaneous Endoscopic Approach (ICD-10-PCS; 2020-07-22)
PROC: 0WUF0JZ Supplement Abdominal Wall with Synthetic Substitute, Open Approach (ICD-10-PCS; principal; 2020-07-22 14:00)
DX: A41.9 Sepsis, unspecified organism (principal); J18.9 Pneumonia, unspecified organism; N17.9 Acute kidney failure, unspecified; K91.89 Other postprocedural complications and disorders of digestive system; K56.7 Ileus, unspecified; N39.0 Urinary tract infection, site not specified; K43.9 Ventral hernia without obstruction or gangrene; E66.3 Overweight; Z68.29 Body mass index [BMI] 29.0-29.9, adult; I10 Essential (primary) hypertension; E78.5 Hyperlipidemia, unspecified; M06.9 Rheumatoid arthritis, unspecified; Z86.73 Personal history of transient ischemic attack (TIA), and cerebral infarction without residual deficits; E03.9 Hypothyroidism, unspecified; F17.200 Nicotine dependence, unspecified, uncomplicated; Z11.59 Encounter for screening for other viral diseases; N28.89 Other specified disorders of kidney and ureter
CPT/HCPCS: 36415; 36600; 71045; 74018; 74176; 76770; 78227; 80048; 80053; 80061; 80076; 81001; 82805; 82948; 83036; 83605; 83690; 83735; 84100; 85025; 87040; 99285; A9537; J0330; J0696; J2001; J2250; J2370; J2405; J2710; J3010; J7030; U0002